=== PATIENT | male | born 1960 | race Caucasian/White ===

== ENCOUNTER 2021-03-04 04:51 | Inpatient (IN) | payer MEDICARE ==
[2021-03-04] MEDS ORDERED: PANTOPRAZOLE 40 MG/10 ML VIAL IVP STA (05:14)
--- NOTE | 2021-03-04 05:15 | ED ---
GI Bleed HPI - General Chief complaint: GI Bleed Stated complaint: GI Bleed Time Seen by Provider: 03/04/21 05:13 Source: patient, family Mode of arrival: EMS Limitations: no limitations - History of Present Illness Initial comments: This patient is 60-year-old man brought by and also had an evaluation after syncopal episode. The patient had gotten up from bed to a bowel movement at around 4 AM. The patient states that the next thing that he knew he had passed out and fall from the commode. He had apparently passed a dark tarry stool. The patient was feeling a little lightheaded prior. Patient denied any chest pain, dyspnea, abdominal pain, perianal pain or bright red blood. Patient does have chronic back pain and states that this was probably worsened after he fell from the commode. No weakness or numbness of the extremities. No saddle anesthesia. He has not noticed any change in bladder or bowel function. Patient had similar episode with dark bloody stools in June of last year and was seen in [place] at the hospital, where he had endoscopy that showed some sort of ulceration. He states that he was told that he didn't need to have any follow-up after that. MD complaint: melena Severity scale (1-10): 0 Quality: painless Improves with: none Worsens with: none Context: history of GI bleed Associated Symptoms: denies other symptoms, syncope - Related Data Home Medications Medication Instructions Recorded Confirmed Atorvastatin [Lipitor] 40 mg PO HS 03/04/21 03/04/21 Disulfiram [Antabuse] 250 mg PO DAILY 03/04/21 03/04/21 Levocetirizine Dihydrochloride 5 mg PO DAILY 03/04/21 03/04/21 Methadone [Dolophine] 10 mg PO Q4H PRN 03/04/21 03/04/21 PARoxetine [Paxil] 20 mg PO DAILY 03/04/21 03/04/21 oxyCODONE-APAP 10-325MG [Percocet 1 tab PO Q8HR PRN 03/04/21 03/04/21 10-325 mg] tiZANidine [Zanaflex] 4 mg PO BID 03/04/21 03/04/21 Allergies Allergy/AdvReac Type Severity Reaction Status Date / Time No Known Allergies Allergy Verified 04/30/21 08:06 Review of Systems ROS Statement: Those systems with pertinent positive or pertinent negative responses have been documented in the HPI. ROS Other: All systems not noted in ROS Statement are negative. Constitutional: Denies: fever, chills Respiratory: Denies: cough, dyspnea Cardiovascular: Reports: syncope. Denies: chest pain, palpitations, orthopnea, edema Gastrointestinal: Reports: melena. Denies: abdominal pain, vomiting, diarrhea, hematemesis, hematochezia Genitourinary: Denies: dysuria, hematuria Musculoskeletal: Denies: back pain Skin: Denies: rash Neurological: Denies: headache, weakness Hematological/Lymphatic: Denies: easy bleeding Past Medical History Past Medical History: GI Bleed, Hyperlipidemia History of Any Multi-Drug Resistant Organisms: None Reported Past Surgical History: Hernia Repair, Orthopedic Surgery, Tonsillectomy Additional Past Surgical History / Comment(s): Proste surgery Past Psychological History: No Psychological Hx Reported Smoking Status: Current every day smoker Past Alcohol Use History: None Reported Past Drug Use History: None Reported General Exam Limitations: no limitations General appearance: alert, in no apparent distress Head exam: Present: atraumatic, normocephalic Eye exam: Present: normal appearance ENT exam: Present: other (Pallor) Neck exam: Present: normal inspection, full ROM. Absent: tenderness Respiratory exam: Present: normal lung sounds bilaterally. Absent: respiratory distress, wheezes, rales, rhonchi, stridor Cardiovascular Exam: Present: regular rate, normal rhythm, normal heart sounds. Absent: systolic murmur, diastolic murmur, rubs, gallop GI/Abdominal exam: Present: soft. Absent: distended, tenderness, guarding, rebound, rigid, mass Extremities exam: Present: normal inspection, normal capillary refill. Absent: pedal edema, calf tenderness Back exam: Present: normal inspection Neurological exam: Present: alert Skin exam: Present: warm, dry, intact, pallor. Absent: rash Course Vital Signs 03/04/21 03/04/21 03/04/21 04:54 05:04 05:39 Temperature 97.5 F L Pulse Rate 86 85 Respiratory 16 16 Rate Blood Pressure 112/94 92/61 99/53 O2 Sat by Pulse 97 98 Oximetry 03/04/21 03/04/21 03/04/21 06:00 06:30 07:24 Temperature 97.7 F Pulse Rate 100 87 92 Respiratory 15 17 18 Rate Blood Pressure 86/58 106/58 102/58 O2 Sat by Pulse 98 98 98 Oximetry 03/04/21 03/04/21 03/04/21 07:35 07:45 08:15 Temperature 98 F 97.9 F 98 F Pulse Rate 97 96 98 Respiratory 18 16 18 Rate Blood Pressure 86/61 98/64 105/65 O2 Sat by Pulse 99 99 98 Oximetry 03/04/21 09:17 Temperature Pulse Rate Respiratory 18 Rate Blood Pressure 93/61 O2 Sat by Pulse 96 Oximetry Medical Decision Making - Lab Data Result diagrams: 03/08/21 06:44 03/08/21 06:44 Lab Results 03/04/21 03/04/21 03/04/21 Range/Units 05:10 05:10 05:15 WBC 14.9 H (3.8-10.6) k/uL RBC 2.16 L (4.30-5.90) m/uL Hgb 7.6 L (13.0-17.5) gm/dL Hct 22.6 L (39.0-53.0) % MCV 104.7 H (80.0-100.0) fL MCH 35.2 H (25.0-35.0) pg MCHC 33.6 (31.0-37.0) g/dL RDW 14.0 (11.5-15.5) % Plt Count 205 (150-450) k/uL MPV 7.8 Neutrophils % 73 % Lymphocytes % 22 % Monocytes % 3 % Eosinophils % 1 % Basophils % 0 % Neutrophils # 10.9 H (1.3-7.7) k/uL Lymphocytes # 3.3 (1.0-4.8) k/uL Monocytes # 0.5 (0-1.0) k/uL Eosinophils # 0.1 (0-0.7) k/uL Basophils # 0.0 (0-0.2) k/uL Anisocytosis Macrocytosis Moderate PT (9.0-12.0) sec INR (<1.2) APTT (22.0-30.0) sec Sodium (137-145) mmol/L Potassium (3.5-5.1) mmol/L Chloride (98-107) mmol/L Carbon Dioxide (22-30) mmol/L Anion Gap mmol/L BUN (9-20) mg/dL Creatinine (0.66-1.25) mg/dL Est GFR (CKD-EPI)AfAm (>60 ml/min/1.73 sqM) Est GFR (CKD-EPI)NonAf (>60 ml/min/1.73 sqM) Glucose (74-99) mg/dL POC Glucose (mg/dL) (75-99) mg/dL POC Glu Cardiac Cath Technologist ID Lactic Ac Sepsis Rflx Plasma Lactic Acid Semaj (0.7-2.0) mmol/L Calcium (8.4-10.2) mg/dL Total Bilirubin (0.2-1.3) mg/dL AST (17-59) U/L ALT (4-49) U/L Alkaline Phosphatase (38-126) U/L Troponin I (0.000-0.034) ng/mL Total Protein (6.3-8.2) g/dL Albumin (3.5-5.0) g/dL Influenza Type A (PCR) (Not Detectd) Influenza Type B (PCR) (Not Detectd) RSV (PCR) (Not Detectd) SARS-CoV-2 (PCR) (Not Detectd) Blood Type B Positive Blood Type Confirm B Positive Blood Type Recheck No Previous Record Bld Type Recheck Status CABO Indicated Antibody Screen NEGATIVE Crossmatch See Detail Spec Expiration Date 03/07/2021 - 230903/04/21 03/04/21 03/04/21 Range/Units 05:15 05:15 05:15 WBC (3.8-10.6) k/uL RBC (4.30-5.90) m/uL Hgb (13.0-17.5) gm/dL Hct (39.0-53.0) % MCV (80.0-100.0) fL MCH (25.0-35.0) pg MCHC (31.0-37.0) g/dL RDW (11.5-15.5) % Plt Count (150-450) k/uL MPV Neutrophils % % Lymphocytes % % Monocytes % % Eosinophils % % Basophils % % Neutrophils # (1.3-7.7) k/uL Lymphocytes # (1.0-4.8) k/uL Monocytes # (0-1.0) k/uL Eosinophils # (0-0.7) k/uL Basophils # (0-0.2) k/uL Anisocytosis Macrocytosis PT 10.1 (9.0-12.0) sec INR 0.9 (<1.2) APTT 17.9 L (22.0-30.0) sec Sodium 140 (137-145) mmol/L Potassium 3.7 (3.5-5.1) mmol/L Chloride 115 H (98-107) mmol/L Carbon Dioxide 17 L (22-30) mmol/L Anion Gap 8 mmol/L BUN 59 H (9-20) mg/dL Creatinine 0.87 (0.66-1.25) mg/dL Est GFR (CKD-EPI)AfAm >90 (>60 ml/min/1.73 sqM) Est GFR (CKD-EPI)NonAf >90 (>60 ml/min/1.73 sqM) Glucose 162 H (74-99) mg/dL POC Glucose (mg/dL) (75-99) mg/dL POC Glu Cardiac Cath Technologist ID Lactic Ac Sepsis Rflx Plasma Lactic Acid Semaj (0.7-2.0) mmol/L Calcium 7.9 L (8.4-10.2) mg/dL Total Bilirubin 0.2 (0.2-1.3) mg/dL AST 22 (17-59) U/L ALT 17 (4-49) U/L Alkaline Phosphatase 33 L (38-126) U/L Troponin I <0.012 (0.000-0.034) ng/mL Total Protein 4.3 L (6.3-8.2) g/dL Albumin 2.4 L (3.5-5.0) g/dL Influenza Type A (PCR) (Not Detectd) Influenza Type B (PCR) (Not Detectd) RSV (PCR) (Not Detectd) SARS-CoV-2 (PCR) (Not Detectd) Blood Type Blood Type Confirm Blood Type Recheck Bld Type Recheck Status Antibody Screen Crossmatch Spec Expiration Date 03/04/21 03/04/21 03/04/21 Range/Units 05:30 06:07 08:11 WBC (3.8-10.6) k/uL RBC (4.30-5.90) m/uL Hgb (13.0-17.5) gm/dL Hct (39.0-53.0) % MCV (80.0-100.0) fL MCH (25.0-35.0) pg MCHC (31.0-37.0) g/dL RDW (11.5-15.5) % Plt Count (150-450) k/uL MPV Neutrophils % % Lymphocytes % % Monocytes % % Eosinophils % % Basophils % % Neutrophils # (1.3-7.7) k/uL Lymphocytes # (1.0-4.8) k/uL Monocytes # (0-1.0) k/uL Eosinophils # (0-0.7) k/uL Basophils # (0-0.2) k/uL Anisocytosis Macrocytosis PT (9.0-12.0) sec INR (<1.2) APTT (22.0-30.0) sec Sodium (137-145) mmol/L Potassium (3.5-5.1) mmol/L Chloride (98-107) mmol/L Carbon Dioxide (22-30) mmol/L Anion Gap mmol/L BUN (9-20) mg/dL Creatinine (0.66-1.25) mg/dL Est GFR (CKD-EPI)AfAm (>60 ml/min/1.73 sqM) Est GFR (CKD-EPI)NonAf (>60 ml/min/1.73 sqM) Glucose (74-99) mg/dL POC Glucose (mg/dL) (75-99) mg/dL POC Glu Cardiac Cath Technologist ID Lactic Ac Sepsis Rflx Y Plasma Lactic Acid Semaj 3.0 H* (0.7-2.0) mmol/L Calcium (8.4-10.2) mg/dL Total Bilirubin (0.2-1.3) mg/dL AST (17-59) U/L ALT (4-49) U/L Alkaline Phosphatase (38-126) U/L Troponin I (0.000-0.034) ng/mL Total Protein (6.3-8.2) g/dL Albumin (3.5-5.0) g/dL Influenza Type A (PCR) Not Detected (Not Detectd) Influenza Type B (PCR) Not Detected (Not Detectd) RSV (PCR) Not Detected (Not Detectd) SARS-CoV-2 (PCR) Not Detected (Not Detectd) Blood Type Blood Type Confirm Blood Type Recheck Bld Type Recheck Status Antibody Screen Crossmatch Spec Expiration Date 03/04/21 03/04/21 03/04/21 Range/Units 11:45 11:54 21:07 WBC 12.5 H (3.8-10.6) k/uL RBC 2.25 L (4.30-5.90) m/uL Hgb 7.3 L (13.0-17.5) gm/dL Hct 22.5 L (39.0-53.0) % MCV 100.3 H (80.0-100.0) fL MCH 32.5 (25.0-35.0) pg MCHC 32.4 (31.0-37.0) g/dL RDW 17.9 H (11.5-15.5) % Plt Count 153 (150-450) k/uL MPV 7.5 Neutrophils % 82 % Lymphocytes % 15 % Monocytes % 2 % Eosinophils % 0 % Basophils % 0 % Neutrophils # 10.2 H (1.3-7.7) k/uL Lymphocytes # 1.9 (1.0-4.8) k/uL Monocytes # 0.3 (0-1.0) k/uL Eosinophils # 0.0 (0-0.7) k/uL Basophils # 0.0 (0-0.2) k/uL Anisocytosis Slight Macrocytosis Slight PT (9.0-12.0) sec INR (<1.2) APTT (22.0-30.0) sec Sodium (137-145) mmol/L Potassium (3.5-5.1) mmol/L Chloride (98-107) mmol/L Carbon Dioxide (22-30) mmol/L Anion Gap mmol/L BUN (9-20) mg/dL Creatinine (0.66-1.25) mg/dL Est GFR (CKD-EPI)AfAm (>60 ml/min/1.73 sqM) Est GFR (CKD-EPI)NonAf (>60 ml/min/1.73 sqM) Glucose (74-99) mg/dL POC Glucose (mg/dL) 176 H (75-99) mg/dL POC Glu Cardiac Cath Technologist ID Johnny Bishop Lactic Ac Sepsis Rflx Plasma Lactic Acid Semaj 0.8 (0.7-2.0) mmol/L Calcium (8.4-10.2) mg/dL Total Bilirubin (0.2-1.3) mg/dL AST (17-59) U/L ALT (4-49) U/L Alkaline Phosphatase (38-126) U/L Troponin I (0.000-0.034) ng/mL Total Protein (6.3-8.2) g/dL Albumin (3.5-5.0) g/dL Influenza Type A (PCR) (Not Detectd) Influenza Type B (PCR) (Not Detectd) RSV (PCR) (Not Detectd) SARS-CoV-2 (PCR) (Not Detectd) Blood Type Blood Type Confirm Blood Type Recheck Bld Type Recheck Status Antibody Screen Crossmatch Spec Expiration Date 03/04/21 03/05/21 Range/Units 21:12 00:03 WBC 12.3 H (3.8-10.6) k/uL RBC 1.59 L (4.30-5.90) m/uL Hgb 5.1 L* D (13.0-17.5) gm/dL Hct 15.9 L* (39.0-53.0) % MCV 99.9 (80.0-100.0) fL MCH 32.3 (25.0-35.0) pg MCHC 32.3 (31.0-37.0) g/dL RDW 18.4 H (11.5-15.5) % Plt Count 146 L (150-450) k/uL MPV 7.6 Neutrophils % 65 % Lymphocytes % 29 % Monocytes % 4 % Eosinophils % 0 % Basophils % 0 % Neutrophils # 8.0 H (1.3-7.7) k/uL Lymphocytes # 3.6 (1.0-4.8) k/uL Monocytes # 0.4 (0-1.0) k/uL Eosinophils # 0.0 (0-0.7) k/uL Basophils # 0.0 (0-0.2) k/uL Anisocytosis Slight Macrocytosis Slight PT (9.0-12.0) sec INR (<1.2) APTT (22.0-30.0) sec Sodium (137-145) mmol/L Potassium (3.5-5.1) mmol/L Chloride (98-107) mmol/L Carbon Dioxide (22-30) mmol/L Anion Gap mmol/L BUN (9-20) mg/dL Creatinine (0.66-1.25) mg/dL Est GFR (CKD-EPI)AfAm (>60 ml/min/1.73 sqM) Est GFR (CKD-EPI)NonAf (>60 ml/min/1.73 sqM) Glucose (74-99) mg/dL POC Glucose (mg/dL) 138 H (75-99) mg/dL POC Glu Cardiac Cath Technologist SURI Sanket Solomon Lactic Ac Sepsis Rflx Plasma Lactic Acid Semaj (0.7-2.0) mmol/L Calcium (8.4-10.2) mg/dL Total Bilirubin (0.2-1.3) mg/dL AST (17-59) U/L ALT (4-49) U/L Alkaline Phosphatase (38-126) U/L Troponin I (0.000-0.034) ng/mL Total Protein (6.3-8.2) g/dL Albumin (3.5-5.0) g/dL Influenza Type A (PCR) (Not Detectd) Influenza Type B (PCR) (Not Detectd) RSV (PCR) (Not Detectd) SARS-CoV-2 (PCR) (Not Detectd) Blood Type Blood Type Confirm Blood Type Recheck Bld Type Recheck Status Antibody Screen Crossmatch Spec Expiration Date - EKG Data -: EKG Interpreted by Wi EKG shows normal: sinus rhythm, axis (Normal), intervals (Normal), QRS complexes (Normal), ST-T waves (Normal) Rate: normal (Rate 86 bpm) Interpretation: normal EKG Disposition Clinical Impression: GI bleed, Syncope and collapse Disposition: ADMITTED IP TO THIS HOSP Condition: Serious Is patient prescribed a controlled substance at d/c from ED?: No
[2021-03-04] MEDS ORDERED: fentaNYL (PF) 50 MCG/ML 2 ML AMP IVP STA ×2 (05:21→06:42)
[2021-03-04 05:32] LABS: Basophils % (A) 0 %; Eosinophils # (A) 0.1 k/uL (0-0.7); Eosinophils % (A) 1 %; HCT 22.6 % (39.0-53.0); HGB 7.6 gm/dL (13.0-17.5); Lymphocytes # (A) 3.3 k/uL (1.0-4.8); Lymphocytes % (A) 22 %; MCH 35.2 pg (25.0-35.0); MCHC 33.6 g/dL (31.0-37.0); MCV 104.7 fL (80.0-100.0); Macrocytosis Moderate; Mean Platelet Volume 7.8; Monocytes # (A) 0.5 k/uL (0-1.0); Monocytes % (A) 3 %; Neutrophils # (A) 10.9 k/uL (1.3-7.7); Neutrophils % (A) 73 %; Platelet Count 205 k/uL (150-450); RBC 2.16 m/uL (4.30-5.90); WBC 14.9 k/uL (3.8-10.6)
[2021-03-04 05:44] LABS: ALT 17 U/L (4-49); AST 22 U/L (17-59); African American GFR (CKD) >90 (>60 ml/min/1.73 sqM); Albumin 2.4 g/dL (3.5-5.0); Alkaline Phosphatase 33 U/L (38-126); Anion Gap 8 mmol/L; Blood Urea Nitrogen 59 mg/dL (9-20); Calcium 7.9 mg/dL (8.4-10.2); Carbon Dioxide 17 mmol/L (22-30); Chloride 115 mmol/L (98-107); Glucose 162 mg/dL (74-99); Non-African American GFR(CKD) >90 (>60 ml/min/1.73 sqM); Potassium 3.7 mmol/L (3.5-5.1); Sodium 140 mmol/L (137-145); Total Bilirubin 0.2 mg/dL (0.2-1.3); Total Protein 4.3 g/dL (6.3-8.2)
[2021-03-04 06:28] LABS: INR 0.9 (<1.2); Prothrombin Time 10.1 sec (9.0-12.0)
[2021-03-04 06:34] LABS: Partial Thromboplastin Time 17.9 sec (22.0-30.0)
[2021-03-04] MEDS ORDERED: NALOXONE 0.4 MG/ML 1 ML VIAL IV PRN (06:55)
[2021-03-04] MEDS ORDERED: ONDANSETRON 4 MG/2 ML VIAL IVP PRN (06:55)
--- NOTE | 2021-03-04 07:06 | XR ---
EXAM: XR Chest, 1 View CLINICAL HISTORY: ITS.REASON XR Reason: pain TECHNIQUE: Frontal view of the chest. COMPARISON: No relevant prior studies available. FINDINGS: Lungs: Unremarkable. No consolidation. Pleural space: Unremarkable. No pneumothorax. Heart: Unremarkable. No cardiomegaly. Mediastinum: Unremarkable. Bones/joints: Unremarkable. Right side reverse total shoulder arthroplasty hardware in place. IMPRESSION: No acute pulmonary process.
[2021-03-04] MEDS: HYDROmorphone 0.5 MG/0.5 ML SYRINGE IVP PRN ×5 (07:45→20:31)
--- NOTE | 2021-03-04 07:47 | CT ---
EXAMINATION TYPE: CT abdomen pelvis w con DATE OF EXAM: 03/04/2021 COMPARISON: None HISTORY: GI Bleed, Abd pain CT DLP: 1097.8 mGycm CONTRAST: CT scan of the abdomen and pelvis is performed without Oral Contrast and with IV Contrast, patient in jected with 100 mL of Isovue 300. FINDINGS: LUNG BASES-: No visible nodule. No infiltrate. LIVER/GB: No calcified gallstones. No space occupying hepatic lesion. Biliary tree is of normal ca liber. PANCREAS: No inflammation. No distinct mass. SPLEEN: No splenic enlargement. No lesion seen. ADRENALS: No nodule. No thickening. KIDNEYS/BLADDER: No hydronephrosis. No nephrolithiasis. 3.8 cm right renal cyst posteriorly. Urinar y bladder grossly unremarkable. BOWEL: Normal appendix. Normal bowel caliber. No inflammation. GENITAL ORGANS: No gross abnormality. LYMPH NODES: No greater than 1cm abdominal or pelvic lymph nodes are appreciated. AORTA: No significant abnormality. OSSEOUS STRUCTURES: Postoperative changes lumbar spine. OTHER: Left-sided hydrocele noted. IMPRESSION: 1. No acute process identified to account for the patient's symptoms.
[2021-03-04] MEDS ORDERED: PANTOPRAZOLE 40 MG/10 ML VIAL IV SCH (09:00)
[2021-03-04] MEDS: PANTOPRAZOLE 40 MG/10 ML VIAL IV SCH ×2 (09:32→20:30)
--- NOTE | 2021-03-04 09:35 | P.HPIM ---
History of Present Illness H&P Date: 03/04/21 Chief Complaint: Syncope This is a 60-year-old male with past medical history noted below the presented to the emergency room with an episode of syncope and black tarry stool. Patient said that last night he was feeling tired and decided to sleep in the recliner in his sitting room. Around 3 AM he got up to use the bathroom and he does not recall what happened. His at bedside told me that she heard a loud noise and went down to check on him and patient was passed out on the floor. She was able to wake him up and had him sit up on the floor but he became dizzy again and laid back down. She then called 911 to bring him to the emergency room. Upon arrival to the emergency room, patient was awake and alert. He was hemodynamically stable. Hemoglobin was noted to be 7.6. Patient was taken to x-ray and became significantly dizzy when he sat up for the test. Patient said that last night he had an episode of black stool that he denies any abdominal pain. He denies any alcohol use. no NSAIDs use. Patient had a similar episode of GI bleed in June where he was hospitalized in [place] in the [facility] and underwent an EGD showing an underlying ulcer according to his report. Patient said that he does not take Protonix at home. One unit of blood transfusion was ordered and patient will be admitted to the hospital for further management and GI consultation. Review of Systems Review of system: 14 points review of systems were obtained and were negative except to what were mentioned in the HPI. Past Medical History Past Medical History: GI Bleed, Hyperlipidemia History of Any Multi-Drug Resistant Organisms: None Reported Past Surgical History: Hernia Repair, Orthopedic Surgery, Tonsillectomy Additional Past Surgical History / Comment(s): Proste surgery Past Psychological History: No Psychological Hx Reported Smoking Status: Current every day smoker Past Alcohol Use History: None Reported Past Drug Use History: None Reported Medications and Allergies Home Medications Medication Instructions Recorded Confirmed Type Atorvastatin [Lipitor] 40 mg PO HS 03/04/21 03/04/21 History Disulfiram [Antabuse] 250 mg PO DAILY 03/04/21 03/04/21 History Levocetirizine Dihydrochloride 5 mg PO DAILY 03/04/21 03/04/21 History Methadone [Dolophine] 10 mg PO Q4H PRN 03/04/21 03/04/21 History PARoxetine [Paxil] 20 mg PO DAILY 03/04/21 03/04/21 History oxyCODONE-APAP 10-325MG [Percocet 1 tab PO Q8HR PRN 03/04/21 03/04/21 History 10-325 mg] tiZANidine [Zanaflex] 4 mg PO BID 03/04/21 03/04/21 History Allergies Allergy/AdvReac Type Severity Reaction Status Date / Time No Known Allergies Allergy Verified 03/04/21 08:06 Physical Exam Vitals: Vital Signs Temp Pulse Resp BP Pulse Ox 03/04/21 09:17 18 93/61 96 03/04/21 08:15 98 F 98 18 105/65 98 03/04/21 07:45 97.9 F 96 16 98/64 99 03/04/21 07:35 98 F 97 18 86/61 99 03/04/21 07:24 97.7 F 92 18 102/58 98 03/04/21 06:30 87 17 106/58 98 03/04/21 06:00 100 15 86/58 98 03/04/21 05:39 85 16 99/53 98 03/04/21 05:04 92/61 03/04/21 04:54 97.5 F L 86 16 112/94 97 Intake and Output 03/03/21 03/04/21 03/04/21 22:59 06:59 14:59 Intake Total 0 Balance 0 Intake: Blood Product 0 Rc As-1 Unit 0 [id number] Other: Weight 87.543 kg General: The patient is awake and alert, in no distress Eye: there is normal conjunctiva bilaterally. Neck: The neck is supple, there is no JVD. Cardiovascular: Normal S1-S2, no S3-S4, no murmurs. Respiratory: Lungs clear to auscultation bilaterally Gastrointestinal: Abdomen is soft, nontender Musculoskeletal: There is no pedal edema. Neurological:. Speech is normal. Skin: Skin is warm and dry Results CBC & Chem 7: 03/04/21 05:15 03/04/21 05:15 Labs: Abnormal Lab Results - Last 24 Hours (Table) 03/04/21 03/04/21 03/04/21 Range/Units 05:10 05:15 05:15 WBC 14.9 H (3.8-10.6) k/uL RBC 2.16 L (4.30-5.90) m/uL Hgb 7.6 L (13.0-17.5) gm/dL Hct 22.6 L (39.0-53.0) % MCV 104.7 H (80.0-100.0) fL MCH 35.2 H (25.0-35.0) pg Neutrophils # 10.9 H (1.3-7.7) k/uL APTT 17.9 L (22.0-30.0) sec Chloride (98-107) mmol/L Carbon Dioxide (22-30) mmol/L BUN (9-20) mg/dL Glucose (74-99) mg/dL Plasma Lactic Acid Semaj (0.7-2.0) mmol/L Calcium (8.4-10.2) mg/dL Alkaline Phosphatase (38-126) U/L Total Protein (6.3-8.2) g/dL Albumin (3.5-5.0) g/dL Crossmatch See Detail 03/04/21 03/04/21 Range/Units 05:15 05:30 WBC (3.8-10.6) k/uL RBC (4.30-5.90) m/uL Hgb (13.0-17.5) gm/dL Hct (39.0-53.0) % MCV (80.0-100.0) fL MCH (25.0-35.0) pg Neutrophils # (1.3-7.7) k/uL APTT (22.0-30.0) sec Chloride 115 H (98-107) mmol/L Carbon Dioxide 17 L (22-30) mmol/L BUN 59 H (9-20) mg/dL Glucose 162 H (74-99) mg/dL Plasma Lactic Acid Semaj 3.0 H* (0.7-2.0) mmol/L Calcium 7.9 L (8.4-10.2) mg/dL Alkaline Phosphatase 33 L (38-126) U/L Total Protein 4.3 L (6.3-8.2) g/dL Albumin 2.4 L (3.5-5.0) g/dL Crossmatch Assessment and Plan Assessment: This is a 60-year-old male with past medical history noted below that presented to the emergency room with syncope and black stool. Patient was evaluated in the ER and admitted to the hospital for further management of his medical problems noted below 1. Upper GI bleed, started on Protonix 40 mg twice daily. GI consulted for further evaluation. History of gastric ulcer seen on EGD done at [facility] in June 2020 2. Acute blood loss anemia, symptomatic. Hemoglobin 7.6 on presentation. One unit of blood transfusion ordered in the ER. Continue to monitor CBC every 6 hours. 3. Chronic low back pain with prior back surgery, now worse after syncope and possible fall on the floor. I would obtain lumbar spine x-ray for further evaluation 4. Underlying depression, continue home medication 5. CODE STATUS: Patient is full code Today, I reviewed his medication list and lab work results. Continue gentle IV fluid hydration. Nothing by mouth awaiting GI evaluation. Continue to monitor CBC every 6 hours. Repeat lab work in the morning. DVT prophylaxis with SCDs.
--- NOTE | 2021-03-04 10:05 | XR ---
EXAMINATION TYPE: XR lumbar spine 2 or 3V DATE OF EXAM: 03/04/2021 CLINICAL HISTORY: pain TECHNIQUE: Three views of the lumbar spine are submitted. COMPARISON: 04/26/15 FINDINGS: There are postsurgical changes with posterior intrapedicular rods and screws transfixing L3-S1 levels bilaterally. There has been spinous process resection at these levels. There is metallic disc spacer at L5-S1 level. Alignment is satisfactory. Vertebral body heights are within normal limits. Disc spaces are within normal limits. The overlyi ng soft tissue appears unremarkable. IMPRESSION: Stable postoperative changes of the lumbar spine
[2021-03-04] MEDS: SODIUM CHLORIDE 0.9% 1,000 ML IV SCH ×2 (11:59→14:02)
[2021-03-04 12:19] LABS: Anisocytosis Slight; Basophils % (A) 0 %; Eosinophils % (A) 0 %; HCT 22.5 % (39.0-53.0); HGB 7.3 gm/dL (13.0-17.5); Lymphocytes # (A) 1.9 k/uL (1.0-4.8); Lymphocytes % (A) 15 %; MCH 32.5 pg (25.0-35.0); MCHC 32.4 g/dL (31.0-37.0); MCV 100.3 fL (80.0-100.0); Macrocytosis Slight; Mean Platelet Volume 7.5; Monocytes # (A) 0.3 k/uL (0-1.0); Monocytes % (A) 2 %; Neutrophils # (A) 10.2 k/uL (1.3-7.7); Neutrophils % (A) 82 %; Platelet Count 153 k/uL (150-450); RBC 2.25 m/uL (4.30-5.90); RDW 17.9 % (11.5-15.5); WBC 12.5 k/uL (3.8-10.6)
[2021-03-04] MEDS: PARoxetine 20 MG TAB PO SCH (13:10)
[2021-03-04] MEDS: oxyCODONE-APAP 10-325MG 1 EACH TAB PO PRN (13:10)
--- NOTE | 2021-03-04 15:24 | P.CONS ---
History of Present Illness - Reason for Consult Consult date: 03/04/21 Upper GI bleed - Chief Complaint Syncopal episode with fall, black tarry stools - History of Present Illness Is a pleasant 60-year-old white male who presented to the emergency department this morning after sustaining a fall when he became dizzy to get up to the bathroom approximately at 4 AM. He states he has noticed yesterday he did have a dark stool, however prior to that has no complaints of any previous black or tarry stools, hematemesis, coffee-ground emesis or bright red blood per rectum. Patient states he had a similar episode back in June 2020 where he was in the [facility] same thing happened he became dizzy he fell he fractured his neck and broken with his teeth, he was found to be anemic with part of his workup being an upper endoscopy which she states revealed a peptic ulcer. The patient states he was on some medications for it for short time, however he had no further follow-up. He does not take any antacids or proton pump inhibitors and a regular basis. He does not use any NSAIDs, as he was prior on low back prior to the last diagnosis of peptic ulcer disease and was told to use any NSAIDs. He has a previous history of alcohol use, which he states was never a real heavy. He is unsure of when his last colonoscopy was he believes that was within the last 5-10 years. He is unsure if they actually did one during his hospitalization and narcotic in June 2020. Apparently in the emergency department he had a repeated large black tarry stool. Admission WBC 14.9, hemoglobin 7.6, hematocrit 22.6, platelets 205,000 BUN 59. He is status post 1 unit of PRBC transfusion. Review of Systems REVIEW OF SYSTEMS: CARDIOPULMONARY: No chest pain or shortness of breath. Gastrointestinal: Epigastric pain, denies nausea or vomiting, reports dark stools. Denies any hematemesis or rectal bleeding. GENITOURINARY: No dysuria or hematuria. MUSCULOSKELETAL: Unremarkable. SKIN: Unremarkable. ENDOCRINE: Unremarkable. PSYCHIATRIC: Unremarkable. NEUROLOGY: Unremarkable. ENT: Vision unremarkable. CONSTITUTIONAL: No recent weight loss. No fever, chills, night sweats. Past Medical History Past Medical History: GI Bleed, Hyperlipidemia History of Any Multi-Drug Resistant Organisms: None Reported Past Surgical History: Hernia Repair, Orthopedic Surgery, Tonsillectomy Additional Past Surgical History / Comment(s): Proste surgery Past Psychological History: No Psychological Hx Reported Smoking Status: Current every day smoker Past Alcohol Use History: None Reported Past Drug Use History: None Reported Medications and Allergies Home Medications Medication Instructions Recorded Confirmed Type Atorvastatin [Lipitor] 40 mg PO HS 03/04/21 03/04/21 History Disulfiram [Antabuse] 250 mg PO DAILY 03/04/21 03/04/21 History Levocetirizine Dihydrochloride 5 mg PO DAILY 03/04/21 03/04/21 History Methadone [Dolophine] 10 mg PO Q4H PRN 03/04/21 03/04/21 History PARoxetine [Paxil] 20 mg PO DAILY 03/04/21 03/04/21 History oxyCODONE-APAP 10-325MG [Percocet 1 tab PO Q8HR PRN 03/04/21 03/04/21 History 10-325 mg] tiZANidine [Zanaflex] 4 mg PO BID 03/04/21 03/04/21 History Allergies Allergy/AdvReac Type Severity Reaction Status Date / Time No Known Allergies Allergy Verified 03/04/21 08:06 Physical Exam Vitals: Vital Signs Temp Pulse Resp BP Pulse Ox 03/04/21 09:17 18 93/61 96 03/04/21 08:15 98 F 98 18 105/65 98 03/04/21 07:45 97.9 F 96 16 98/64 99 03/04/21 07:35 98 F 97 18 86/61 99 03/04/21 07:24 97.7 F 92 18 102/58 98 03/04/21 06:30 87 17 106/58 98 03/04/21 06:00 100 15 86/58 98 03/04/21 05:39 85 16 99/53 98 03/04/21 05:04 92/61 03/04/21 04:54 97.5 F L 86 16 112/94 97 Intake and Output 03/03/21 03/04/21 03/04/21 22:59 06:59 14:59 Intake Total 310 Balance 310 Intake: Blood Product 310 Rc As-1 Unit 310 [id number] Other: Weight 87.543 kg 87.543 kg General appearance: The patient is alert, oriented, appears in no acute distress. HET: Head is normocephalic and atraumatic. Conjunctiva pink. Sclera anicteric. Neck: Supple without lymphadenopathy. Abdomen: Soft, epigastric tenderness, nondistended with bowel sounds. No guarding or rigidity. Extremities: Normal skin color and turgor. No pedal edema Skin: No rashes, no jaundice Neurological: No focal deficits. Alert and oriented 3. Results CBC & Chem 7: 03/04/21 11:54 03/04/21 05:15 Labs: Abnormal Lab Results - Last 24 Hours (Table) 03/04/21 03/04/21 03/04/21 Range/Units 05:10 05:15 05:15 WBC 14.9 H (3.8-10.6) k/uL RBC 2.16 L (4.30-5.90) m/uL Hgb 7.6 L (13.0-17.5) gm/dL Hct 22.6 L (39.0-53.0) % MCV 104.7 H (80.0-100.0) fL MCH 35.2 H (25.0-35.0) pg RDW (11.5-15.5) % Neutrophils # 10.9 H (1.3-7.7) k/uL APTT 17.9 L (22.0-30.0) sec Chloride (98-107) mmol/L Carbon Dioxide (22-30) mmol/L BUN (9-20) mg/dL Glucose (74-99) mg/dL Plasma Lactic Acid Semaj (0.7-2.0) mmol/L Calcium (8.4-10.2) mg/dL Alkaline Phosphatase (38-126) U/L Total Protein (6.3-8.2) g/dL Albumin (3.5-5.0) g/dL Crossmatch See Detail 03/04/21 03/04/21 03/04/21 Range/Units 05:15 05:30 11:54 WBC 12.5 H (3.8-10.6) k/uL RBC 2.25 L (4.30-5.90) m/uL Hgb 7.3 L (13.0-17.5) gm/dL Hct 22.5 L (39.0-53.0) % MCV 100.3 H (80.0-100.0) fL MCH (25.0-35.0) pg RDW 17.9 H (11.5-15.5) % Neutrophils # 10.2 H (1.3-7.7) k/uL APTT (22.0-30.0) sec Chloride 115 H (98-107) mmol/L Carbon Dioxide 17 L (22-30) mmol/L BUN 59 H (9-20) mg/dL Glucose 162 H (74-99) mg/dL Plasma Lactic Acid Semaj 3.0 H* (0.7-2.0) mmol/L Calcium 7.9 L (8.4-10.2) mg/dL Alkaline Phosphatase 33 L (38-126) U/L Total Protein 4.3 L (6.3-8.2) g/dL Albumin 2.4 L (3.5-5.0) g/dL Crossmatch Assessment and Plan (1) GI bleed Narrative/Plan: Assessment pleasant 60-year-old male who presented to the emergency department after feeling dizzy and he got up to go to the bathroom and subsequently passed out and fell. He states he had a dark stool the day before and was not feeling well, states he was just feeling "off". He states he has a history in June 2020 where he had a similar episode and he fell which at that time states he fractured his back and neck as well as lost his front teeth, he was found to be anemic at that time and underwent an upper endoscopy while she was in the [facility]. He states he was told he had an ulcer. He has not had any follow-up since then. He also states he is not on any NSAIDs, anticoagulation, and not on any proton pump inhibitors. He was noted to have a hemoglobin is 7.6 on admission and given 1 unit of PRBC transfusion. He also had another black tarry stool while he was in the emergency room. Likely dealing with peptic ulcer disease, however have to consider AVM, gastritis or esophagitis. Also need to consider lower GI bleed as a possibility. Current Visit: Yes Status: Acute Code(s): K92.2 - GASTROINTESTINAL HEMORRHAGE, UNSPECIFIED SNOMED Code(s): 88001689 (2) Syncope and collapse Current Visit: Yes Status: Acute Code(s): R55 - SYNCOPE AND COLLAPSE SNOMED Code(s): 427237261 Plan: 1. Agree with PRBC transfusion 2. Clear liquid diet, nothing by mouth after midnight 3. Repeat CBC in a.m. 4. Plan for EGD tomorrow Thank you for this consultation, we will continue to follow Dr. Brittany Lawler I agree with the dictator's note, documented as a scribe by Radha Barker.
[2021-03-04] MEDS: tiZANidine 4 MG TAB PO SCH (20:30)
[2021-03-04] MEDS: ATORVASTATIN 40 MG TAB PO SCH (20:30)
[2021-03-04 21:09] LABS: Glucose,Whole Blood 176 mg/dL (75-99)
[2021-03-04] MEDS ORDERED: SODIUM CHLORIDE 0.9% 1,000 ML IV ONE (21:10)
--- NOTE | 2021-03-04 21:35 | P.EN ---
A team note for repeated episodes of GI bleeding patient had 2 episodes of dark BM since morning , however he just started having hematamesis , he looks ancious , confused, diaphoretic , heart rate in the 130s , BP systolic 130. oxygen st 100% he denies any chest pain or trouble breathing, but he gets very dizzy and lightheaded when he attempted to sit up in his bed and get cleaned after his dark bowel movement , he does complain epigastric discomfort labs reviewed, he claims to have baseline hemoglobin around 9 , currently at 7.3 (down from initial 7.6 no other baseline hgb) , he received blood transfusion this morning , PT/INR wnl. platelets wnl good breath sounds bilaterally , abd soft , with epigastric discomfort. plan repeat CBC 1 L bolus NS 0.9% will give another unit of blood if hemoglobin <7 (patient claims his baseline is 9) notify GI for any further plans. he is currently scheduled for EGD in AM continue with PPI BID NPO patient to continue to be monitored on the step down unit , as we have no ICU beds at this time continue with tele cbc q 6 hours no antiplatelets no NSAIDS assessment , symptomatic GI bleeding with severe anemia 30 minutes were spent in critical care time in the care of this patient
[2021-03-04 21:49] LABS: Anisocytosis Slight; Basophils % (A) 0 %; Eosinophils % (A) 0 %; Lymphocytes # (A) 3.6 k/uL (1.0-4.8); Lymphocytes % (A) 29 %; MCH 32.3 pg (25.0-35.0); MCHC 32.3 g/dL (31.0-37.0); MCV 99.9 fL (80.0-100.0); Macrocytosis Slight; Mean Platelet Volume 7.6; Monocytes # (A) 0.4 k/uL (0-1.0); Monocytes % (A) 4 %; Neutrophils % (A) 65 %; Platelet Count 146 k/uL (150-450); RBC 1.59 m/uL (4.30-5.90); RDW 18.4 % (11.5-15.5); WBC 12.3 k/uL (3.8-10.6)
[2021-03-04 21:53] LABS: HGB 5.1 gm/dL (13.0-17.5)
[2021-03-04 21:54] LABS: HCT 15.9 % (39.0-53.0)
[2021-03-04] MEDS ORDERED: CALCIUM GLUCONATE 1 GM in SODIUM CHLORIDE 0.9% 100 ML IVPB ONE (23:00)
[2021-03-05 00:05] LABS: Glucose,Whole Blood 138 mg/dL (75-99)
[2021-03-05] MEDS: HYDROmorphone 0.5 MG/0.5 ML SYRINGE IVP PRN ×4 (00:58→20:45)
[2021-03-05] MEDS: SODIUM CHLORIDE 0.9% 1,000 ML IV SCH ×4 (01:13→23:34)
[2021-03-05] MEDS: oxyCODONE-APAP 10-325MG 1 EACH TAB PO PRN (01:14)
[2021-03-05 06:57] LABS: Anisocytosis Slight; Basophils % (A) 0 %; Eosinophils % (A) 0 %; Lymphocytes % (A) 22 %; MCH 31.8 pg (25.0-35.0); MCHC 32.8 g/dL (31.0-37.0); MCV 96.9 fL (80.0-100.0); Macrocytosis Slight; Mean Platelet Volume 7.6; Monocytes # (A) 0.3 k/uL (0-1.0); Monocytes % (A) 4 %; Neutrophils # (A) 6.5 k/uL (1.3-7.7); Neutrophils % (A) 72 %; Platelet Count 106 k/uL (150-450); RBC 1.75 m/uL (4.30-5.90); RDW 16.8 % (11.5-15.5); WBC 9.1 k/uL (3.8-10.6)
[2021-03-05 07:01] LABS: HGB 5.6 gm/dL (13.0-17.5)
[2021-03-05 07:09] LABS: African American GFR (CKD) >90 (>60 ml/min/1.73 sqM); Anion Gap -3 mmol/L; Blood Urea Nitrogen 34 mg/dL (9-20); Calcium 7.3 mg/dL (8.4-10.2); Carbon Dioxide 22 mmol/L (22-30); Chloride 119 mmol/L (98-107); Glucose 111 mg/dL (74-99); Non-African American GFR(CKD) >90 (>60 ml/min/1.73 sqM); Potassium 4.1 mmol/L (3.5-5.1); Sodium 138 mmol/L (137-145)
[2021-03-05] MEDS ORDERED: IV FLUID CONTINUATION 200 ML IV ONE (07:40)
[2021-03-05] MEDS ORDERED: PROPOFOL 10 MG/ML 20 ML VIAL IV ONE (07:40)
[2021-03-05] MEDS ORDERED: fentaNYL (PF) 50 MCG/ML 2 ML AMP ONE (07:40)
[2021-03-05] MEDS ORDERED: LIDOCAINE 1% INJ 10MG/ML (20 ML MDV) ONE (07:40)
[2021-03-05] MEDS ORDERED: MIDAZOLAM 2 MG/2 ML VIAL ONE (07:40)
--- NOTE | 2021-03-05 08:08 | P.PCN ---
Date of Procedure: 03/05/21 Procedure(s) Performed: BRIEF HISTORY: Patient is a 60-year-old, pleasant, male admitted hospital with acute GI bleed and black tarry stools that happened 2 days ago and he came into the emergency room yesterday and was subsequently admitted hospital with a hemoglobin of 7.6 g/dL. Through the night he had large amount of black tarry stools and subsequently became hypotensive and was transferred to the intensive care unit. His repeat hemoglobin of 7.1 and received 2 units of RBC transfusion. Repeat CBC this morning is 5.6 g/dL. He will be receiving 2 additional units of PRBC transfusion. He has another episode in June 2020 requiring 2 units of blood transfusion while he was living up normal. He had an EGD done and according to the patient was diagnosed with duodenal ulcer at that time. Presently he denies any NSAID use. PROCEDURE PERFORMED: Esophagogastroduodenoscopy with injection epinephrine and Endo Clip placement. PREOPERATIVE DIAGNOSIS: Acute upper GI bleed. IV sedation per anesthesia. PROCEDURE: After informed consent was obtained, the patient was brought into the endoscopy unit. IV sedation was administered by Anesthesia under continuous monitoring. Initially the Olympus GIF-140 video endoscope was inserted into the mouth. Esophagus intubated without any difficulty. It was gradually advanced into the stomach and duodenum and carefully examined. The bulb and the second part of the duodenum had significant amount of fresh blood with clots noted. Thorough irrigation was performed. Large clots were noted in the duodenum that we're irrigated and removed. In the duodenal bulb along the duodenal sweep there was a visible vessel suggestive of a Dieulafoy lesion with active bleeding noted. Initially I injected the bleeding vessel withdrawn and thousand epinephrine and total of 8 mL was injected with hemostasis. At this time 2 endoclips were placed on the visible vessel with good hemostasis. The scope at this time was withdrawn to the stomach, adequately insufflated with air, and upon careful examination, mucosa of the antrum, body, cardia and the fundus appeared normal. There was moderate amount of coffee-ground material in the fundus of the stomach that was aspirated. The scope was then withdrawn into the esophagus. The GE junction was located at 39 cm from the incisors. The esophagus appeared normal. There were no erosions or ulcerations seen and the patient tolerated the procedure well. IMPRESSION: 1. Visible vessel with active bleeding noted in the duodenal bulb suggestive of a Dieulafoy lesion , status post injection epinephrine and Endo Clip placement as described above with good hemostasis . 2. Small hiatal hernia RECOMMENDATIONS: The findings of this examination were discussed with the patient as well as his family. At this time will give him 2 units of blood. Continue with IV Protonix 40 mg every 12 hours. Monitor CBC every 6 hours. Start him on a clear liquid diet..
[2021-03-05] MEDS: PANTOPRAZOLE 40 MG/10 ML VIAL IV SCH ×2 (10:20→20:45)
[2021-03-05] MEDS: PARoxetine 20 MG TAB PO SCH (10:21)
[2021-03-05] MEDS: tiZANidine 4 MG TAB PO SCH ×2 (11:01→20:53)
--- NOTE | 2021-03-05 11:15 | P.CNPUL ---
History of Present Illness Consult date: 03/05/21 Requesting physician: Curt Fletcher Reason for consult: other (Critical care management) Chief complaint: Weakness, syncope History of present illness: This a very pleasant 60-year-old gentleman who follows with Dr. Rodriguez as his primary care provider. He has a history of previous GI bleed, hyperlipidemia, chronic tobacco dependence, previous alcohol abuse. He was brought in the emergency room yesterday after waking up approximate 4 AM to go to the bathroom. He had a black tarry stool and subsequent syncopal episode. Presently hemoglobin 7.3. He received 2 units of packed red blood cells in the emergency room and subsequently transferred to the stepdown unit. Last evening around 9:00 he developed a matter emesis with tachycardia, anxious and diaphoretic. Hemoglobin 5.1. He was given 2 more additional units of packed red blood cells. A liter of fluid resuscitation and transferred to the intensive care unit. Currently receiving his fifth unit of packed red blood cells. Morning hemoglobin 5.6. He did undergo EGD today and was found to have a visible bleeding duodenal ulcer that was treated with epinephrine injection and Endo Clip. He is seen in consultation in the intensive care unit. He is currently resting comfortably in bed. Awake and alert in no acute distress. Maintaining O2 saturations in the 90s on 2 L/m per nasal cannula. 0.9 normal saline at 125 ML's per hour. Chest x-ray had revealed no acute pulmonary process. Computed tomography scan of the abdomen and pelvis revealed no acute processes. White count 9.1. Hemoglobin 5.6. Platelets 106. Sodium 138. Potassium 4.1. Creatinine 0.57. Review of Systems REVIEW OF SYSTEMS: CONSTITUTIONAL: Generalized weakness, syncope. Denies any recent significant weight loss or weight gain. EYES: Denies change in vision. EARS, NOSE, MOUTH, THROAT: Denies headaches, denies sore throat. CARDIOVASCULAR: Denies chest pain, palpitations. RESPIRATORY: Denies shortness of breath, cough, congestion or hemoptysis. GASTROINTESTINAL: Black tarry stools GENITOURINARY: Denies hematuria, denies infections. MUSKULOSKELETAL: Denies pain, denies swelling. INTEGUMENTARY: Denies rash, denies eczema. NEUROLOGICAL: Denies recent memory loss, no recent seizure activity. PSYCHIATRIC: Denies anxiety, denies depression. HEMATOLOGIC/LYMPHATIC: Denies anemia, denies enlarged lymph nodes. Past Medical History Past Medical History: GI Bleed, Hyperlipidemia History of Any Multi-Drug Resistant Organisms: None Reported Past Surgical History: Hernia Repair, Orthopedic Surgery, Tonsillectomy Additional Past Surgical History / Comment(s): Proste surgery Past Psychological History: No Psychological Hx Reported Smoking Status: Current every day smoker Past Alcohol Use History: None Reported Past Drug Use History: None Reported Medications and Allergies Home Medications Medication Instructions Recorded Confirmed Type Atorvastatin [Lipitor] 40 mg PO HS 03/04/21 03/04/21 History Disulfiram [Antabuse] 250 mg PO DAILY 03/04/21 03/04/21 History Levocetirizine Dihydrochloride 5 mg PO DAILY 03/04/21 03/04/21 History Methadone [Dolophine] 10 mg PO Q4H PRN 03/04/21 03/04/21 History PARoxetine [Paxil] 20 mg PO DAILY 03/04/21 03/04/21 History oxyCODONE-APAP 10-325MG [Percocet 1 tab PO Q8HR PRN 03/04/21 03/04/21 History 10-325 mg] tiZANidine [Zanaflex] 4 mg PO BID 03/04/21 03/04/21 History Allergies Allergy/AdvReac Type Severity Reaction Status Date / Time No Known Allergies Allergy Verified 03/04/21 08:06 Physical Exam Vitals: Vital Signs Temp Pulse Pulse Resp BP BP Pulse Ox 03/05/21 10:30 98.4 F 92 18 127/74 100 03/05/21 10:00 98.0 F 97 18 123/77 100 03/05/21 09:30 98.0 F 92 17 135/75 100 03/05/21 09:06 98.1 F 101 H 18 113/73 100 03/05/21 09:00 98 20 120/67 100 03/05/21 08:36 97.7 F 95 19 120/67 100 03/05/21 08:26 98.0 F 101 H 18 99/58 100 03/05/21 08:00 98.0 F 108 H 18 99/58 99 03/05/21 07:00 106 H 10 L 111/71 97 03/05/21 06:00 93 16 110/76 97 03/05/21 05:00 87 11 L 121/62 98 03/05/21 04:54 98.8 F 98 10 L 115/69 97 03/05/21 04:52 98.8 F 95 13 121/62 97 03/05/21 04:00 98.8 F 84 13 112/67 95 03/05/21 03:00 90 21 111/67 96 03/05/21 02:34 98.4 F 88 19 97/65 97 03/05/21 02:04 98.6 F 90 20 111/67 97 03/05/21 02:00 99 F 88 15 101/68 96 03/05/21 01:54 99 F 90 12 101/68 96 03/05/21 01:00 93 13 115/72 03/05/21 00:30 99 F 88 14 94/79 96 03/05/21 00:05 100 9 L 03/04/21 23:09 98.5 F 96 18 103/65 99 03/04/21 22:39 99.4 F 106 H 18 91/62 98 03/04/21 22:29 103 H 20 81/58 98 03/04/21 22:26 103 H 18 86/59 99 03/04/21 21:00 132 H 20 139/79 03/04/21 20:10 99.4 F 113 H 18 124/77 98 03/04/21 17:00 114 H 03/04/21 16:00 104 H 03/04/21 15:00 98.1 F 101 H 18 110/66 97 Intake and Output 03/04/21 03/05/21 03/05/21 22:59 06:59 14:59 Intake Total 400 1780 910 Output Total 574 400 Balance 400 1206 510 Intake: IV 850 600 Calcium Gluconate 1 gm In 100 Sodium Chloride 0.9% 100 ml @ 100 mls/hr IVPB ONCE ONE Rx#:[id number] Sodium Chloride 0.9% 1, 750 500 000 ml @ 125 mls/hr IV . Q8H KARLA Rx#:[id number] Oral 400 Blood Product 0 930 310 Rc As-1 Unit 0 310 [id number] Rc As-1 Unit 0 [id number] Rc As-1 Unit 310 [id number] Rc As-1 Unit 310 [id number] Output: Urine 574 400 Other: Voiding Method Urinal Urinal Urinal # Voids 1 GENERAL EXAM: Alert, very pleasant 60-year-old gentleman, on 2 L nasal cannula, pale, comfortable in no apparent distress. HEAD: Normocephalic. EYES: Normal reaction of pupils, equal size. NOSE: Clear with pink turbinates. THROAT: No erythema or exudates. NECK: No masses, no JVD. CHEST: No chest wall deformity. LUNGS: Equal air entry with no crackles, wheeze, rhonchi or dullness. CVS: S1 and S2 normal with no audible murmur, regular rhythm. ABDOMEN: No hepatosplenomegaly, normal bowel sounds, no guarding or rigidity. SPINE: No scoliosis or deformity SKIN: No rashes CENTRAL NERVOUS SYSTEM: No focal deficits, tone is normal in all 4 extremities. EXTREMITIES: There is no peripheral edema. No clubbing, no cyanosis. Peripheral pulses are intact. Results - Laboratory Findings CBC and BMP: 03/05/21 06:29 03/05/21 06:29 PT/INR, D-dimer PT 10.1 sec (9.0-12.0) 03/04/21 05:15 INR 0.9 (<1.2) 03/04/21 05:15 Abnormal lab findings: Abnormal Labs 03/04/21 03/04/21 03/04/21 05:10 05:15 05:15 WBC 14.9 H RBC 2.16 L Hgb 7.6 L Hct 22.6 L MCV 104.7 H MCH 35.2 H RDW Plt Count Neutrophils # 10.9 H APTT 17.9 L Chloride Carbon Dioxide BUN Creatinine Glucose POC Glucose (mg/dL) Plasma Lactic Acid Semaj Calcium Alkaline Phosphatase Total Protein Albumin Crossmatch See Detail 03/04/21 03/04/21 03/04/21 05:15 05:30 11:54 WBC 12.5 H RBC 2.25 L Hgb 7.3 L Hct 22.5 L MCV 100.3 H MCH RDW 17.9 H Plt Count Neutrophils # 10.2 H APTT Chloride 115 H Carbon Dioxide 17 L BUN 59 H Creatinine Glucose 162 H POC Glucose (mg/dL) Plasma Lactic Acid Semaj 3.0 H* Calcium 7.9 L Alkaline Phosphatase 33 L Total Protein 4.3 L Albumin 2.4 L Crossmatch 03/04/21 03/04/21 03/05/21 21:07 21:12 00:03 WBC 12.3 H RBC 1.59 L Hgb 5.1 L* D Hct 15.9 L* MCV MCH RDW 18.4 H Plt Count 146 L Neutrophils # 8.0 H APTT Chloride Carbon Dioxide BUN Creatinine Glucose POC Glucose (mg/dL) 176 H 138 H Plasma Lactic Acid Semaj Calcium Alkaline Phosphatase Total Protein Albumin Crossmatch 03/05/21 03/05/21 06:29 06:29 WBC RBC 1.75 L Hgb 5.6 L* Hct 17.0 L* MCV MCH RDW 16.8 H Plt Count 106 L Neutrophils # APTT Chloride 119 H Carbon Dioxide BUN 34 H Creatinine 0.57 L Glucose 111 H POC Glucose (mg/dL) Plasma Lactic Acid Semaj Calcium 7.3 L Alkaline Phosphatase Total Protein Albumin Crossmatch - Diagnostic Findings Chest x-ray: image reviewed (No acute pulmonary process) Assessment and Plan Assessment: 1 Syncope secondary to severe anemia secondary to visible vessel or active bleeding noted of the duodenum bowel suggestive of Dieulafoy lesion, status post injection of epinephrine and Endo Clip placement with good hemostasis per EGD performed today 03/05/2021 2 Severe anemia secondary to above requiring 5 units packed red blood cells so far this admission. Current hemoglobin 5.6. 3 Previous history of alcohol abuse 4 Previous history of GI bleed 5 Chronic and ongoing tobacco dependence 6 Hyperlipidemia Plan: The patient was seen and evaluated by Dr. Talley Status post epinephrine injection and clipping of a duodenal ulcer Receiving his fifth unit of packed red blood cells Continue to monitor hemoglobin Continue 0.9 normal saline at 125 ML's per hour Continue to monitor closely here in the ICU We will continue to follow and make further recommendations based on his clinical status I, the cosigning physician, performed a history & physical examination of the patient. Lungs sounds are clear. Maintaining good O2 saturations in the 90s on 2 L/m per nasal. I discussed the assessment and plan of care with my nurse practitioner, Renata Martinez. I attest to the above consultation as dictated by her. Time with Patient: Greater than 30
[2021-03-05 14:13] LABS: Anisocytosis Slight; HCT 24.7 % (39.0-53.0); MCH 31.4 pg (25.0-35.0); MCHC 34.3 g/dL (31.0-37.0); Mean Platelet Volume 7.8; RDW 16.7 % (11.5-15.5)
[2021-03-05 14:48] LABS: HGB 8.5 gm/dL (13.0-17.5); MCV 91.7 fL (80.0-100.0)
--- NOTE | 2021-03-05 15:09 | P.PN ---
Subjective Progress Note Date: 03/05/21 (delayed charting seen at 1130) Principal diagnosis: syncope, tarry stools Patient is a 60-year-old male with history of prior GI bleed, dyslipidemia, and tobacco abuse who presented to the ER with dark tarry stools and syncopal episode. In the ER he underwent an extensive evaluation. Vital signs stable, hemoglobin 7.6, lactic acid 3, influenza A and COVID testing negative. In the ER he try to get up for x-ray and again became dizzy and had an additional episode of black tarry stool. He was ordered 1 unit of packed red blood cells. He was admitted for further monitoring. GI was consulted and started him on a clear liquid diet and nothing by mouth after midnight. On the floor patient began having hematemesis and became tachycardic and had worsening dizziness. Stat repeat CBC. He also hemoglobin of 5.1. 2 additional units of packed red blood cells were ordered as well as 1 g of calcium gluconate and the patient was transferred to the ICU. His hemoglobin remained low and initial 2 units of packed red blood cells were ordered. He underwent EGD on the morning of 03/05 which demonstrated visible vessel with active bleeding in the duodenal all sugg estive of a Dieulafoy lesion which was injected with epi and had an endoclip placed with good results. CT abd and pelvis: no acute process Chest x-ray: no acute process Lumbar spine: stable postoperative changes Patient seen and examined at bedside. His abdominal pain has resolved. He denies any nausea or vomiting. He denies any chest pain or shortness of breath. He is feeling hungry. We discussed the importance of avoiding NSAID use in the future, no alcohol use. General: ill appearing, no distress, appears at stated age Derm: warm, dry Head: atraumatic, normocephalic, symmetric Eyes: EOMI, no lid lag, anicteric sclera Mouth: no lip lesion, mucus membranes moist Cardiovascular: S1S2 reg, no murmur, positive posterior tibial pulse bilateral, Lungs: Decreased bs bilateral, no rhonchi, no rales , no accessory muscle use Abdominal: soft, nontender to palpation, no guarding, no appreciable organomegaly Ext: no gross muscle atrophy, no edema, no contractures Neuro: CN II-XI grossly intact, no focal neuro deficits Psych: Alert, oriented, appropriate affect Upper GI bleed, acute blood loss anemia, due to Dieulafoy lesion -Status post 5 units of packed red blood cells - repeat this afternoon and then in AM - GI recs - on PPI - GI recs Thrombocytopenia - follow CBC - no indication for transfusion Probable syncope, fall - due to acute blood loss - check orthostatic in AM - Tele Tobacco abuse - cessation - nicotine replacement if needed Acute on Chronic back pain - conitnue zanaflex, percocet, dilaudid Depression - Paxil DVT prophylaxis: SCDs Discussed with: patient, nursing Anticipated discharge: 3-[address]: home A total of 35 minutes was spent on the care of this complex patient more than 50% of the time was spent in counseling and care coordination. Objective - Vital Signs Vital signs: Vital Signs Temp 98.3 F 03/05/21 12:39 Pulse 90 03/05/21 14:00 Resp 16 03/05/21 14:00 BP 133/73 03/05/21 14:00 Pulse Ox 99 03/05/21 14:00 Intake & Output 03/04/21 03/05/21 03/05/21 18:59 06:59 18:59 Intake Total 710 1780 1720 Output Total 574 400 Balance 710 1206 1320 Weight 87.543 kg Intake: IV 850 1100 Calcium Gluconate 1 gm In 100 Sodium Chloride 0.9% 100 ml @ 100 mls/hr IVPB ONCE ONE Rx#:[id number] Sodium Chloride 0.9% 1, 750 1000 000 ml @ 125 mls/hr IV . Q8H [facility] Rx#:[id number] Oral 400 Blood Product 310 930 620 Rc As-1 Unit 310 [id number] Rc As-1 Unit 310 [id number] Rc As-1 Unit 310 [id number] Rc As-1 Unit 310 [id number] Rc As-1 Unit 310 [id number] Output: Urine 574 400 Other: Voiding Method Urinal Urinal # Voids 1 - Labs CBC & Chem 7: 03/05/21 14:04 03/05/21 06:29 Labs: Abnormal Lab Results - Last 24 Hours (Table) 03/04/21 03/04/21 03/04/21 Range/Units 05:10 21:07 21:12 WBC 12.3 H (3.8-10.6) k/uL RBC 1.59 L (4.30-5.90) m/uL Hgb 5.1 L* D (13.0-17.5) gm/dL Hct 15.9 L* (39.0-53.0) % RDW 18.4 H (11.5-15.5) % Plt Count 146 L (150-450) k/uL Neutrophils # 8.0 H (1.3-7.7) k/uL Chloride (98-107) mmol/L BUN (9-20) mg/dL Creatinine (0.66-1.25) mg/dL Glucose (74-99) mg/dL POC Glucose (mg/dL) 176 H (75-99) mg/dL Calcium (8.4-10.2) mg/dL Crossmatch See Detail 03/05/21 03/05/21 03/05/21 Range/Units 00:03 06:29 06:29 WBC (3.8-10.6) k/uL RBC 1.75 L (4.30-5.90) m/uL Hgb 5.6 L* (13.0-17.5) gm/dL Hct 17.0 L* (39.0-53.0) % RDW 16.8 H (11.5-15.5) % Plt Count 106 L (150-450) k/uL Neutrophils # (1.3-7.7) k/uL Chloride 119 H (98-107) mmol/L BUN 34 H (9-20) mg/dL Creatinine 0.57 L (0.66-1.25) mg/dL Glucose 111 H (74-99) mg/dL POC Glucose (mg/dL) 138 H (75-99) mg/dL Calcium 7.3 L (8.4-10.2) mg/dL Crossmatch 03/05/21 Range/Units 14:04 WBC 14.0 H (3.8-10.6) k/uL RBC 2.70 L (4.30-5.90) m/uL Hgb 8.5 L D (13.0-17.5) gm/dL Hct 24.7 L (39.0-53.0) % RDW 16.7 H (11.5-15.5) % Plt Count (150-450) k/uL Neutrophils # (1.3-7.7) k/uL Chloride (98-107) mmol/L BUN (9-20) mg/dL Creatinine (0.66-1.25) mg/dL Glucose (74-99) mg/dL POC Glucose (mg/dL) (75-99) mg/dL Calcium (8.4-10.2) mg/dL Crossmatch
[2021-03-05 15:11] LABS: Platelet Count 93 k/uL (150-450)
[2021-03-05] MEDS: ATORVASTATIN 40 MG TAB PO SCH (20:45)
[2021-03-05 22:38] LABS: Anisocytosis Slight; MCH 31.4 pg (25.0-35.0); MCHC 34.8 g/dL (31.0-37.0); MCV 90.4 fL (80.0-100.0); Mean Platelet Volume 7.8; RBC 2.06 m/uL (4.30-5.90); RDW 17.1 % (11.5-15.5); WBC 11.5 k/uL (3.8-10.6)
[2021-03-05 22:55] LABS: HCT 18.7 % (39.0-53.0); HGB 6.5 gm/dL (13.0-17.5)
[2021-03-05 22:56] LABS: Platelet Count 86 k/uL (150-450)
[2021-03-06] MEDS: HYDROmorphone 0.5 MG/0.5 ML SYRINGE IVP PRN ×7 (00:14→23:47)
[2021-03-06] MEDS: SODIUM CHLORIDE 0.9% 1,000 ML IV SCH ×3 (07:02→23:48)
[2021-03-06] MEDS: oxyCODONE-APAP 10-325MG 1 EACH TAB PO PRN ×2 (07:03→13:42)
[2021-03-06 07:11] LABS: African American GFR (CKD) >90 (>60 ml/min/1.73 sqM); Anion Gap -2 mmol/L; Blood Urea Nitrogen 16 mg/dL (9-20); Calcium 7.4 mg/dL (8.4-10.2); Carbon Dioxide 22 mmol/L (22-30); Chloride 118 mmol/L (98-107); Glucose 101 mg/dL (74-99); Non-African American GFR(CKD) >90 (>60 ml/min/1.73 sqM); Sodium 138 mmol/L (137-145)
[2021-03-06 07:31] LABS: Potassium 3.9 mmol/L (3.5-5.1)
[2021-03-06 07:39] LABS: Anisocytosis Slight; HCT 25.3 % (39.0-53.0); MCH 29.9 pg (25.0-35.0); MCHC 32.8 g/dL (31.0-37.0); MCV 91.3 fL (80.0-100.0); Mean Platelet Volume 7.6; RBC 2.77 m/uL (4.30-5.90); RDW 16.7 % (11.5-15.5); WBC 10.8 k/uL (3.8-10.6)
[2021-03-06 07:42] LABS: HGB 8.3 gm/dL (13.0-17.5)
[2021-03-06 07:43] LABS: Platelet Count 87 k/uL (150-450)
[2021-03-06] MEDS: tiZANidine 4 MG TAB PO SCH ×2 (08:08→19:45)
[2021-03-06] MEDS: PARoxetine 20 MG TAB PO SCH (08:08)
[2021-03-06] MEDS: PANTOPRAZOLE 40 MG/10 ML VIAL IV SCH ×2 (08:08→19:45)
[2021-03-06 09:26] LABS: Prothrombin Time 10.7 sec (9.0-12.0)
[2021-03-06 09:30] LABS: Partial Thromboplastin Time 21.3 sec (22.0-30.0)
--- NOTE | 2021-03-06 10:42 | P.PN ---
Subjective Progress Note Date: 03/06/21 Principal diagnosis: Acute anemia with GI bleed This a very pleasant 60-year-old gentleman who follows with Dr. Rodriguez as his primary care provider. He has a history of previous GI bleed, hyperlipidemia, chronic tobacco dependence, previous alcohol abuse. He was brought in the emergency room yesterday after waking up approximate 4 AM to go to the bathroom. He had a black tarry stool and subsequent syncopal episode. Presently hemoglobin 7.3. He received 2 units of packed red blood cells in the emergency room and subsequently transferred to the stepdown unit. Last evening around 9:00 he developed a matter emesis with tachycardia, anxious and diaphoretic. Hemoglobin 5.1. He was given 2 more additional units of packed red blood cells. A liter of fluid resuscitation and transferred to the intensive care unit. Currently receiving his fifth unit of packed red blood cells. Morning hemoglobin 5.6. He did undergo EGD today and was found to have a visible bleedi ng duodenal ulcer that was treated with epinephrine injection and Endo Clip. He is seen in consultation in the intensive care unit. He is currently resting comfortably in bed. Awake and alert in no acute distress. Maintaining O2 saturations in the 90s on 2 L/m per nasal cannula. 0.9 normal saline at 125 ML's per hour. Chest x-ray had revealed no acute pulmonary process. Computed tomography scan of the abdomen and pelvis revealed no acute processes. White count 9.1. Hemoglobin 5.6. Platelets 106. Sodium 138. Potassium 4.1. Creatinine 0.57. The patient is seen today 03/06/2021 in follow-up in the intensive care unit. He is currently sitting up in bed. Awake and alert in no acute distress. He is maintaining good O2 saturations in the mid 90s on room air. He's been afebrile. Hemodynamically stable. He has required 7 units of packed red blood cells this admission. He had a second drop in hemoglobin to 6.5 last night. Current hemoglobin 8.3. He did undergo EGD yesterday and was noted to have a visible vessel with active bleeding the duodenal bulb suggestive of Dieulafoy lesion, status post epinephrine injection and Endo Clip placement with good hemostasis. Small hiatal hernia. Continued on IV Protonix. Continued clear liquid diet. White count 10.8. Platelets 87,000. INR 1.0. Fibrinogen 137. Sodium 138. Potassium 3.9. Creatinine 0.58. Normal saline at 125 ML's per hour. Objective - Vital Signs Vital signs: Vital Signs Temp 98.1 F 03/06/21 08:00 Pulse 67 03/06/21 10:00 Resp 17 03/06/21 10:00 BP 92/51 03/06/21 10:00 Pulse Ox 96 03/06/21 10:00 Intake & Output 03/05/21 03/06/21 03/06/21 18:59 06:59 18:59 Intake Total 2320 2430 400 Output Total 1000 1025 775 Balance 1320 1405 -375 Weight 97 kg Intake: IV 1600 1500 400 Sodium Chloride 0.9% 1, 1500 1500 400 000 ml @ 125 mls/hr IV . Q8H [facility] Rx#:[id number] Tube Feeding 100 Blood Product 620 930 Rc As-1 Unit 310 [id number] Rc As-1 Unit 310 [id number] Rc As-1 Unit 310 [id number] Rc As-1 Unit 310 [id number] Output: Urine 1000 1025 775 Other: Voiding Method Urinal Urinal Urinal # Voids 1 0 - Exam GENERAL EXAM: Alert, very pleasant 60-year-old gentleman, on room air, comfortable in no apparent distress. HEAD: Normocephalic. EYES: Normal reaction of pupils, equal size. NOSE: Clear with pink turbinates. THROAT: No erythema or exudates. NECK: No masses, no JVD. CHEST: No chest wall deformity. LUNGS: Equal air entry with no crackles, wheeze, rhonchi or dullness. CVS: S1 and S2 normal with no audible murmur, regular rhythm. ABDOMEN: No hepatosplenomegaly, normal bowel sounds, no guarding or rigidity. SPINE: No scoliosis or deformity SKIN: No rashes CENTRAL NERVOUS SYSTEM: No focal deficits, tone is normal in all 4 extremities. EXTREMITIES: There is no peripheral edema. No clubbing, no cyanosis. Peripheral pulses are intact. - Labs CBC & Chem 7: 03/06/21 06:49 03/06/21 06:49 Labs: Abnormal Lab Results - Last 24 Hours (Table) 03/04/21 03/05/21 03/05/21 Range/Units 05:10 14:04 22:20 WBC 14.0 H 11.5 H (3.8-10.6) k/uL RBC 2.70 L 2.06 L (4.30-5.90) m/uL Hgb 8.5 L D 6.5 L* D (13.0-17.5) gm/dL Hct 24.7 L 18.7 L* (39.0-53.0) % RDW 16.7 H 17.1 H (11.5-15.5) % Plt Count 93 L 86 L (150-450) k/uL APTT (22.0-30.0) sec Fibrinogen (200-500) mg/dL Chloride (98-107) mmol/L Creatinine (0.66-1.25) mg/dL Glucose (74-99) mg/dL Calcium (8.4-10.2) mg/dL Crossmatch See Detail 03/06/21 03/06/21 03/06/21 Range/Units 06:49 06:49 08:22 WBC 10.8 H (3.8-10.6) k/uL RBC 2.77 L (4.30-5.90) m/uL Hgb 8.3 L D (13.0-17.5) gm/dL Hct 25.3 L (39.0-53.0) % RDW 16.7 H (11.5-15.5) % Plt Count 87 L (150-450) k/uL APTT 21.3 L (22.0-30.0) sec Fibrinogen 137 L (200-500) mg/dL Chloride 118 H (98-107) mmol/L Creatinine 0.58 L (0.66-1.25) mg/dL Glucose 101 H (74-99) mg/dL Calcium 7.4 L (8.4-10.2) mg/dL Crossmatch Assessment and Plan Assessment: 1 Syncope secondary to severe anemia secondary to visible vessel or active bleeding noted of the duodenum bowel suggestive of Dieulafoy lesion, status post injection of epinephrine and Endo Clip placement with good hemostasis per EGD performed today 03/05/2021 2 Severe anemia secondary to above requiring 7 units packed red blood cells so far this admission. Current hemoglobin 8.3. 3 Previous history of alcohol abuse 4 Previous history of GI bleed 5 Chronic and ongoing tobacco dependence 6 Hyperlipidemia Plan: The patient was seen and evaluated by Dr. Talley Status post epinephrine injection and clipping of a duodenal ulcer Receiving his seventh unit of packed red blood cells Continue to monitor hemoglobin Decrease 0.9 normal saline to 75 ML's per hour Tolerating clear liquids We will continue to follow I, the cosigning physician, performed a history & physical examination of the patient. Lungs sounds are clear. Maintaining good O2 saturations in the 90s on room air. I discussed the assessment and plan of care with my nurse practi Renata torres. I attest to the above consultation as dictated by her.
--- NOTE | 2021-03-06 11:45 | PN ---
PROGRESS NOTE DATE OF DICTATION: March 06, 2021 Patient is a 60-year-old pleasant white male admitted to hospital with acute GI bleed. He had significant amount of bleeding requiring 7 units of PRBC transfusion in total and last hemoglobin was 8.3 g/dL. He had an upper endoscopy done yesterday and was noted to have a duodenal Dieulafoy's lesion that was injected and Endoclip was placed. The patient had a few black tarry bowel movements through the night. He remains hemodynamically stable. Remains on a clear liquid diet. PHYSICAL EXAMINATION: Appears comfortable. VITAL SIGNS: Stable. Blood pressure 107/63, pulse rate 75 and afebrile. HEENT examination unremarkable. Conjunctivae pin. Sclerae anicteric. Oral cavity no lesions. NECK: No JVD or lymph node enlargement. CHEST was clear to auscultation. HEART: Regular rate and rhythm. ABDOMEN: Soft. Bowel sounds are positive. No organomegaly. EXTREMITIES: No pedal edema. NEURO: He is alert and oriented x3. No focal deficits. LABS: From this morning, WBC 10.8, hemoglobin 8.3, platelets 87,000. BUN 16, creatinine 0.53. IMPRESSION: Acute upper gastrointestinal bleed status post EGD yesterday that showed a Dieulafoy's lesion in the duodenum, status post injection of epinephrine and Endoclip placement. The patient seems hemodynamically stable. He received total of 7 units of PRBC transfusion during this hospitalization. Past hemoglobin 8.3 g/dL. RECOMMENDATIONS: 1. Continue IV Protonix 40 b.i.d. 2. Remain on a clear liquid diet. 3. Monitor CBC every 6 hours. 4. We will follow with you closely. Thank you for this consultation. MMODL / IJN: [id number] /
--- NOTE | 2021-03-06 14:19 | P.PN ---
Subjective Progress Note Date: 03/06/21 (delayed charting seen at 1030) Principal diagnosis: syncope, tarry stools Patient is a 60-year-old male with history of prior GI bleed, dyslipidemia, and tobacco abuse who presented to the ER with dark tarry stools and syncopal episode. In the ER he underwent an extensive evaluation. Vital signs stable, hemoglobin 7.6, lactic acid 3, influenza A and COVID testing negative. In the ER he try to get up for x-ray and again became dizzy and had an additional episode of black tarry stool. He was ordered 1 unit of packed red blood cells. He was admitted for further monitoring. GI was consulted and started him on a clear liquid diet and nothing by mouth after midnight. On the floor patient began having hematemesis and became tachycardic and had worsening dizziness. Stat repeat CBC. He also hemoglobin of 5.1. 2 additional units of packed red blood cells were ordered as well as 1 g of calcium gluconate and the patient was transferred to the ICU. His hemoglobin remained low and initial 2 units of packed red blood cells were ordered. He underwent EGD on the morning of 03/05 which demonstrated visible vessel with active bleeding in the duodenal all sugg estive of a Dieulafoy's lesion which was injected with epi and had an endoclip placed with good results. He required additional blood transfusion. CT abd and pelvis: no acute process Chest x-ray: no acute process Lumbar spine: stable postoperative changes Patient seen and examined at bedside. Feeling okay though his dizziness continues. No chest pain. Abdominal pain is improving. No shortness of breath. No recurrent nausea, vomiting, or diarrhea. Did pass a dark-colored stool today per nursing. General: ill appearing, no distress, appears at stated age Derm: + Pallor, warm, dry Head: atraumatic, normocephalic, symmetric Eyes: EOMI, no lid lag, anicteric sclera Mouth: no lip lesion, mucus membranes moist Cardiovascular: S1S2 reg, no murmur, positive posterior tibial pulse bilateral, Lungs: Decreased bs bilateral, no rhonchi, no rales , no accessory muscle use Abdominal: soft, nontender to palpation, no guarding, no appreciable organomegaly Ext: no gross muscle atrophy, no edema, no contractures Neuro: CN II-XI grossly intact, no focal neuro deficits Psych: Alert, oriented, appropriate affect Upper GI bleed secondary to Dieulafoy's lesion , acute blood loss anemia, -Status post 7 units of packed red blood cells, coagulation studies are normal. - repeat this afternoon and then in AM - GI recs - on PPI Thrombocytopenia - follow CBC - no indication for transfusion Probable syncope, fall - due to acute blood loss - check orthostatic once feeling like he is able to stand - check echo - Tele Tobacco abuse - cessation - nicotine replacement if needed Acute on Chronic back pain - conitnue zanaflex, percocet, dilaudid Depression - Paxil DVT prophylaxis: SCDs Discussed with: patient, nursing Anticipated discharge: 3-[address]: home A total of 35 minutes was spent on the care of this complex patient more than 50% of the time was spent in counseling and care coordination. Objective - Vital Signs Vital signs: Vital Signs Temp 97.1 F L 03/06/21 12:00 Pulse 65 03/06/21 13:00 Resp 14 03/06/21 13:00 BP 106/68 03/06/21 13:00 Pulse Ox 99 03/06/21 13:00 Intake & Output 03/05/21 03/06/21 03/06/21 18:59 06:59 18:59 Intake Total 2320 2430 625 Output Total 1000 1025 1375 Balance 1320 1405 -750 Weight 97 kg Intake: IV 1600 1500 625 Sodium Chloride 0.9% 1, 1500 1500 625 000 ml @ 125 mls/hr IV . Q8H [facility] Rx#:[id number] Tube Feeding 100 Blood Product 620 930 Rc As-1 Unit 310 [id number] Rc As-1 Unit 310 [id number] Rc As-1 Unit 310 [id number] Rc As-1 Unit 310 [id number] Output: Urine 1000 1025 1375 Other: Voiding Method Urinal Urinal Urinal # Voids 1 0 - Labs CBC & Chem 7: 03/06/21 06:49 03/06/21 06:49 Labs: Abnormal Lab Results - Last 24 Hours (Table) 03/04/21 03/05/21 03/05/21 Range/Units 05:10 14:04 22:20 WBC 14.0 H 11.5 H (3.8-10.6) k/uL RBC 2.70 L 2.06 L (4.30-5.90) m/uL Hgb 8.5 L D 6.5 L* D (13.0-17.5) gm/dL Hct 24.7 L 18.7 L* (39.0-53.0) % RDW 16.7 H 17.1 H (11.5-15.5) % Plt Count 93 L 86 L (150-450) k/uL APTT (22.0-30.0) sec Fibrinogen (200-500) mg/dL Chloride (98-107) mmol/L Creatinine (0.66-1.25) mg/dL Glucose (74-99) mg/dL Calcium (8.4-10.2) mg/dL Crossmatch See Detail 03/06/21 03/06/21 03/06/21 Range/Units 06:49 06:49 08:22 WBC 10.8 H (3.8-10.6) k/uL RBC 2.77 L (4.30-5.90) m/uL Hgb 8.3 L D (13.0-17.5) gm/dL Hct 25.3 L (39.0-53.0) % RDW 16.7 H (11.5-15.5) % Plt Count 87 L (150-450) k/uL APTT 21.3 L (22.0-30.0) sec Fibrinogen 137 L (200-500) mg/dL Chloride 118 H (98-107) mmol/L Creatinine 0.58 L (0.66-1.25) mg/dL Glucose 101 H (74-99) mg/dL Calcium 7.4 L (8.4-10.2) mg/dL Crossmatch
[2021-03-06 17:57] LABS: Anisocytosis Slight; HCT 24.7 % (39.0-53.0); MCH 30.1 pg (25.0-35.0); MCHC 32.6 g/dL (31.0-37.0); MCV 92.2 fL (80.0-100.0); Mean Platelet Volume 7.6; Platelet Count 106 k/uL (150-450); RBC 2.67 m/uL (4.30-5.90); RDW 17.4 % (11.5-15.5); WBC 9.4 k/uL (3.8-10.6)
[2021-03-06] MEDS: ATORVASTATIN 40 MG TAB PO SCH (19:45)
[2021-03-07] MEDS: HYDROmorphone 0.5 MG/0.5 ML SYRINGE IVP PRN ×3 (04:12→10:09)
[2021-03-07 04:27] LABS: Anisocytosis Slight; HCT 23.6 % (39.0-53.0); HGB 8.1 gm/dL (13.0-17.5); MCH 31.6 pg (25.0-35.0); MCHC 34.5 g/dL (31.0-37.0); MCV 91.5 fL (80.0-100.0); Mean Platelet Volume 7.8; Platelet Count 115 k/uL (150-450); RBC 2.58 m/uL (4.30-5.90); WBC 7.1 k/uL (3.8-10.6)
[2021-03-07 04:43] LABS: ALT 61 U/L (4-49); AST 57 U/L (17-59); African American GFR (CKD) >90 (>60 ml/min/1.73 sqM); Alkaline Phosphatase 31 U/L (38-126); Anion Gap 0 mmol/L; Blood Urea Nitrogen 8 mg/dL (9-20); Calcium 7.4 mg/dL (8.4-10.2); Carbon Dioxide 26 mmol/L (22-30); Chloride 114 mmol/L (98-107); Glucose 94 mg/dL (74-99); Magnesium 1.7 mg/dL (1.6-2.3); Non-African American GFR(CKD) >90 (>60 ml/min/1.73 sqM); Phosphorus 2.5 mg/dL (2.5-4.5); Potassium 3.3 mmol/L (3.5-5.1); Sodium 140 mmol/L (137-145); Total Bilirubin 0.3 mg/dL (0.2-1.3); Total Protein 3.7 g/dL (6.3-8.2)
[2021-03-07] MEDS ORDERED: Potassium Replacement Protocol 1 EACH MISC MISCELLANE PRN (05:41)
[2021-03-07] MEDS: oxyCODONE-APAP 10-325MG 1 EACH TAB PO PRN ×3 (05:43→20:21)
[2021-03-07] MEDS: POTASSIUM CHLORIDE ER 20 MEQ TAB.ER PO SCH ×2 (05:45→07:10)
[2021-03-07] MEDS ORDERED: Magnesium Replacement Protocol 1 EACH MISC MISCELLANE PRN (06:21)
--- NOTE | 2021-03-07 06:49 | P.PN ---
Subjective Progress Note Date: 03/06/21 This is a 58-year-old male patient was hospitalized GI bleeding. The patient had severe anemia secondary to a upper GI bleed as the patient underwent an EGD and the patient was found to have a visible vessel from the duodenum and the vessel was injected with epinephrine and Endo Clip was applied with adequate hemostasis this EGD was done on 03/05/2021. During the course of the treatment, the patient required pectoralis transfusion and the condition was stabilized. The patient remains on IV fluids normal state rate of 75 cc/ hour. He was allowed clear liquid Diet yesterday. The patient also has history of previous alcohol use, smoking and hyperlipidemia. He was having black tarry stools and was getting weak and progressively worse and he had a bout of syncope and he presented to us with a hemoglobin of 7.3 and during the course of treatment a the patient received a total of 7 units of packed RBC in addition to IV fluids. Hemoglobin for yesterday was 8.0 after he dropped down to as low as 6.5. This morning, the patient's hemoglobin is at 8.1. His platelet counts are up to 106 from yesterday and this is a coagulation profile is all within normal limits. Objective - Vital Signs Vital signs: Vital Signs Temp 97.1 F L 03/06/21 16:00 Pulse 72 03/06/21 19:00 Resp 16 03/06/21 19:00 BP 102/63 03/06/21 19:00 Pulse Ox 96 03/06/21 19:00 Intake & Output 03/06/21 03/06/21 03/07/21 06:59 18:59 06:59 Intake Total 2430 1100 75 Output Total 1025 2425 0 Balance 1405 -1325 75 Weight 97 kg Intake: IV 1500 1000 75 Sodium Chloride 0.9% 1, 1500 1000 75 000 ml @ 125 mls/hr IV . Q8H [facility] Rx#:[id number] Oral 100 Blood Product 930 Rc As-1 Unit 310 [id number] Rc As-1 Unit 310 [id number] Output: Urine 1025 2425 0 Other: Voiding Method Urinal Urinal # Voids 1 0 - Exam GENERAL EXAM: Alert, very pleasant 60-year-old gentleman, on room air, comfortab le in no apparent distress. HEAD: Normocephalic. EYES: Normal reaction of pupils, equal size. NOSE: Clear with pink turbinates. THROAT: No erythema or exudates. NECK: No masses, no JVD. CHEST: No chest wall deformity. LUNGS: Equal air entry with no crackles, wheeze, rhonchi or dullness. CVS: S1 and S2 normal with no audible murmur, regular rhythm. ABDOMEN: No hepatosplenomegaly, normal bowel sounds, no guarding or rigidity. SPINE: No scoliosis or deformity SKIN: No rashes CENTRAL NERVOUS SYSTEM: No focal deficits, tone is normal in all 4 extremities. EXTREMITIES: There is no peripheral edema. No clubbing, no cyanosis. Peripheral pulses are intact. - Labs CBC & Chem 7: 03/07/21 04:02 03/07/21 04:02 Labs: Abnormal Lab Results - Last 24 Hours (Table) 03/04/21 03/05/21 03/06/21 Range/Units 05:10 22:20 06:49 WBC 11.5 H 10.8 H (3.8-10.6) k/uL RBC 2.06 L 2.77 L (4.30-5.90) m/uL Hgb 6.5 L* D 8.3 L D (13.0-17.5) gm/dL Hct 18.7 L* 25.3 L (39.0-53.0) % RDW 17.1 H 16.7 H (11.5-15.5) % Plt Count 86 L 87 L (150-450) k/uL APTT (22.0-30.0) sec Fibrinogen (200-500) mg/dL Chloride (98-107) mmol/L Creatinine (0.66-1.25) mg/dL Glucose (74-99) mg/dL Calcium (8.4-10.2) mg/dL Crossmatch See Detail 03/06/21 03/06/21 03/06/21 Range/Units 06:49 08:22 17:16 WBC (3.8-10.6) k/uL RBC 2.67 L (4.30-5.90) m/uL Hgb 8.0 L (13.0-17.5) gm/dL Hct 24.7 L (39.0-53.0) % RDW 17.4 H (11.5-15.5) % Plt Count 106 L (150-450) k/uL APTT 21.3 L (22.0-30.0) sec Fibrinogen 137 L (200-500) mg/dL Chloride 118 H (98-107) mmol/L Creatinine 0.58 L (0.66-1.25) mg/dL Glucose 101 H (74-99) mg/dL Calcium 7.4 L (8.4-10.2) mg/dL Crossmatch Assessment and Plan Plan: 1 Syncope secondary to severe anemia secondary to visible vessel or active bleeding noted of the duodenum bowel suggestive of Dieulafoy lesion, status post injection of epinephrine and Endo Clip placement with good hemostasis per EGD performed today 03/05/2021 2 Severe anemia secondary to above requiring 7 units packed red blood cells so far this admission. Current hemoglobin 8.1 and there has been no evidence of any acute bleeding over the past 24 hours 3 Previous history of alcohol abuse 4 Previous history of GI bleed 5 Chronic and ongoing tobacco dependence 6 Hyperlipidemia 7 chronic back pain and the patient has been maintained on methadone 10 mg every 4 hours on a when necessary basis and the patient is currently receiving Dil audid 0.5 every 3 hours and Percocet 10/325 every 8 hours on a when necessary basis Plan: Hemodynamically stable Status post epinephrine injection and clipping of a duodenal ulcer Received a total of 7 unit of packed red blood cells Continue to monitor hemoglobin Decrease 0.9 normal saline to 75 ML's per hour Diet as tolerated to be advanced Restart Paxil 20 mg by mouth daily Tolerating clear liquids Transfer this patient out of the intensive care unit
[2021-03-07] MEDS: MAGNESIUM SULFATE-D5W PMX 1 GM in DEXTROSE/WATER 1 100ML.BAG IVPB SCH ×2 (07:10→08:52)
[2021-03-07] MEDS ORDERED: POTASSIUM CHLORIDE ER 20 MEQ TAB.ER PO STA (07:24)
--- NOTE | 2021-03-07 07:36 | P.PN ---
Subjective Progress Note Date: 03/07/21 This is a 58-year-old male patient was hospitalized GI bleeding. The patient had severe anemia secondary to a upper GI bleed as the patient underwent an EGD and the patient was found to have a visible vessel from the duodenum and the vessel was injected with epinephrine and Endo Clip was applied with adequate hemostasis this EGD was done on 03/05/2021. During the course of the treatment, the patient required pectoralis transfusion and the condition was stabilized. The patient remains on IV fluids normal state rate of 75 cc/ hour. He was allowed clear liquid Diet yesterday. The patient also has history of previous alcohol use, smoking and hyperlipidemia. He was having black tarry stools and was getting weak and progressively worse and he had a bout of syncope and he presented to us with a hemoglobin of 7.3 and during the course of treatment a the patient received a total of 7 units of packed RBC in addition to IV fluids. Hemoglobin for yesterday was 8.0 after he dropped down to as low as 6.5. This morning, the patient's hemoglobin is at 8.1. His platelet counts are up to 106 from yesterday and this is a coagulation profile is all within normal limits. Objective - Vital Signs Vital signs: Vital Signs Temp 97.9 F 03/07/21 04:00 Pulse 63 03/07/21 07:00 Resp 13 03/07/21 07:00 BP 97/49 03/07/21 07:00 Pulse Ox 95 03/07/21 07:00 Intake & Output 03/06/21 03/07/21 03/07/21 18:59 06:59 18:59 Intake Total 1100 1140 75 Output Total 2425 1974 Balance -1325 -835 75 Weight 96.5 kg Intake: IV 1000 900 75 Sodium Chloride 0.9% 1, 1000 75 000 ml @ 125 mls/hr IV . Q8H KARLA Rx#:[id number] Sodium Chloride 0.9% 1, 825 75 000 ml @ 75 mls/hr IV . [id number] KARLA Rx#:[id number] Oral 100 240 Output: Urine 2425 1974 Other: Voiding Method Urinal Urinal # Voids 1 0 - Exam GENERAL EXAM: Alert, very pleasant 60-year-old gentleman, on room air, comfortable in no apparent distress. HEAD: Normocephalic. EYES: Normal reaction of pupils, equal size. NOSE: Clear with pink turbinates. THROAT: No erythema or exudates. NECK: No masses, no JVD. CHEST: No chest wall deformity. LUNGS: Equal air entry with no crackles, wheeze, rhonchi or dullness. CVS: S1 and S2 normal with no audible murmur, regular rhythm. ABDOMEN: No hepatosplenomegaly, normal bowel sounds, no guarding or rigidity. SPINE: No scoliosis or deformity SKIN: No rashes CENTRAL NERVOUS SYSTEM: No focal deficits, tone is normal in all 4 extremities. EXTREMITIES: There is no peripheral edema. No clubbing, no cyanosis. Peripheral pulses are intact. - Labs CBC & Chem 7: 03/07/21 04:02 03/07/21 04:02 Labs: Abnormal Lab Results - Last 24 Hours (Table) 03/06/21 03/06/21 03/06/21 Range/Units 06:49 08:22 17:16 WBC 10.8 H (3.8-10.6) k/uL RBC 2.77 L 2.67 L (4.30-5.90) m/uL Hgb 8.3 L D 8.0 L (13.0-17.5) gm/dL Hct 25.3 L 24.7 L (39.0-53.0) % RDW 16.7 H 17.4 H (11.5-15.5) % Plt Count 87 L 106 L (150-450) k/uL APTT 21.3 L (22.0-30.0) sec Fibrinogen 137 L (200-500) mg/dL Potassium (3.5-5.1) mmol/L Chloride (98-107) mmol/L BUN (9-20) mg/dL Creatinine (0.66-1.25) mg/dL Calcium (8.4-10.2) mg/dL ALT (4-49) U/L Alkaline Phosphatase (38-126) U/L Total Protein (6.3-8.2) g/dL Albumin (3.5-5.0) g/dL 03/07/21 03/07/21 Range/Units 04:02 04:02 WBC (3.8-10.6) k/uL RBC 2.58 L (4.30-5.90) m/uL Hgb 8.1 L (13.0-17.5) gm/dL Hct 23.6 L (39.0-53.0) % RDW 17.0 H (11.5-15.5) % Plt Count 115 L (150-450) k/uL APTT (22.0-30.0) sec Fibrinogen (200-500) mg/dL Potassium 3.3 L (3.5-5.1) mmol/L Chloride 114 H (98-107) mmol/L BUN 8 L (9-20) mg/dL Creatinine 0.57 L (0.66-1.25) mg/dL Calcium 7.4 L (8.4-10.2) mg/dL ALT 61 H (4-49) U/L Alkaline Phosphatase 31 L (38-126) U/L Total Protein 3.7 L (6.3-8.2) g/dL Albumin 2.0 L (3.5-5.0) g/dL Assessment and Plan Plan: 1 Syncope secondary to severe anemia secondary to visible vessel or active bleeding noted of the duodenum bowel suggestive of Dieulafoy lesion, status post injection of epinephrine and Endo Clip placement with good hemostasis per EGD performed today 03/05/2021 2 Severe anemia secondary to above requiring 7 units packed red blood cells so far this admission. Current hemoglobin 8.1 and there has been no evidence of any acute bleeding over the past 24 hours 3 Previous history of alcohol abuse 4 Previous history of GI bleed 5 Chronic and ongoing tobacco dependence 6 Hyperlipidemia 7 chronic back pain and the patient has been maintained on methadone 10 mg every 4 hours on a when necessary basis and the patient is currently receiving Dilaudid 0.5 every 3 hours and Percocet 10/325 every 8 hours on a when necessary basis Plan: Hemodynamically stable Status post epinephrine injection and clipping of a duodenal ulcer Received a total of 7 unit of packed red blood cells Continue to monitor hemoglobin Decrease 0.9 normal saline to 75 ML's per hour Diet as tolerated to be advanced Restart Paxil 20 mg by mouth daily Tolerating clear liquids Transfer this patient out of the intensive care unit
[2021-03-07] MEDS: PANTOPRAZOLE 40 MG/10 ML VIAL IV SCH ×2 (08:53→20:22)
[2021-03-07] MEDS: tiZANidine 4 MG TAB PO SCH ×2 (08:53→20:21)
[2021-03-07] MEDS: PARoxetine 20 MG TAB PO SCH (08:53)
[2021-03-07] MEDS ORDERED: HYDROmorphone 0.5 MG/0.5 ML SYRINGE IVP STA (10:34)
--- NOTE | 2021-03-07 11:50 | P.PN ---
Subjective Progress Note Date: 03/07/21 Principal diagnosis: Acute GI bleed, syncope She is a 60-year-old pleasant male who was admitted to the hospital with acute GI bleed. He had significant amount of bleeding requiring 7 units of PRBC transfusion. 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 He states he last had a dark bowel movement yesterday morning but none since then. He denies any severe abdominal pain, nausea, or vomiting. He is been on a clear liquid diet. Hemoglobin was stable at 8.1. Objective - Vital Signs Vital signs: Vital Signs Temp 97.9 F 03/07/21 04:00 Pulse 63 03/07/21 07:00 Resp 13 03/07/21 07:00 BP 97/49 03/07/21 07:00 Pulse Ox 95 03/07/21 07:00 Intake & Output 03/06/21 03/07/21 03/07/21 18:59 06:59 18:59 Intake Total 1100 1140 75 Output Total 2425 1974 Balance -1325 -835 75 Weight 96.5 kg Intake: IV 1000 900 75 Sodium Chloride 0.9% 1, 1000 75 000 ml @ 125 mls/hr IV . Q8H [facility]ARLA Rx#:[id number] Sodium Chloride 0.9% 1, 825 75 000 ml @ 75 mls/hr IV . [id number] [facility]ARLA Rx#:[id number] Oral 100 240 Output: Urine 2424 1974 Other: Voiding Method Urinal Urinal # Voids 1 0 - Exam General appearance: The patient is alert, oriented, appears in no acute distress. HET: Head is normocephalic and atraumatic. Conjunctiva pink. Sclera anicteric. Neck: Supple without lymphadenopathy. Abdomen: Soft, epigastric tenderness nondistended with bowel sounds. No guarding or rigidity. Extremities: Normal skin color and turgor. No pedal edema Skin: No rashes, no jaundice Neurological: No focal deficits. Alert and oriented 3. - Labs CBC & Chem 7: 03/07/21 04:02 03/07/21 04:02 Labs: Abnormal Lab Results - Last 24 Hours (Table) 03/06/21 03/06/21 03/07/21 Range/Units 08:22 17:16 04:02 RBC 2.67 L 2.58 L (4.30-5.90) m/uL Hgb 8.0 L 8.1 L (13.0-17.5) gm/dL Hct 24.7 L 23.6 L (39.0-53.0) % RDW 17.4 H 17.0 H (11.5-15.5) % Plt Count 106 L 115 L (150-450) k/uL APTT 21.3 L (22.0-30.0) sec Fibrinogen 137 L (200-500) mg/dL Potassium (3.5-5.1) mmol/L Chloride (98-107) mmol/L BUN (9-20) mg/dL Creatinine (0.66-1.25) mg/dL Calcium (8.4-10.2) mg/dL ALT (4-49) U/L Alkaline Phosphatase (38-126) U/L Total Protein (6.3-8.2) g/dL Albumin (3.5-5.0) g/dL 03/07/21 Range/Units 04:02 RBC (4.30-5.90) m/uL Hgb (13.0-17.5) gm/dL Hct (39.0-53.0) % RDW (11.5-15.5) % Plt Count (150-450) k/uL APTT (22.0-30.0) sec Fibrinogen (200-500) mg/dL Potassium 3.3 L (3.5-5.1) mmol/L Chloride 114 H (98-107) mmol/L BUN 8 L (9-20) mg/dL Creatinine 0.57 L (0.66-1.25) mg/dL Calcium 7.4 L (8.4-10.2) mg/dL ALT 61 H (4-49) U/L Alkaline Phosphatase 31 L (38-126) U/L Total Protein 3.7 L (6.3-8.2) g/dL Albumin 2.0 L (3.5-5.0) g/dL Assessment and Plan (1) GI bleed Narrative/Plan: This is a pleasant 60-year-old male who presented to the emergency department a fter feeling dizzy and he got up to go to the bathroom and subsequently passed out and fell. He states he had a dark stool the day before and was not feeling well, states he was just feeling "off". He states he has a history in June 2020 where he had a similar episode and he fell which at that time states he fractured his back and neck as well as lost his front teeth, he was found to be anemic at that time and underwent an upper endoscopy while she was in the [facility]. He states he was told he had an ulcer. He has not had any follow-up since then. He also states he is not on any NSAIDs, anticoagulation, and not on any proton pump inhibitors. He was noted to have a hemoglobin is 7.6 on admission and given 1 unit of PRBC transfusion. He also had another black tarry stool while he was in the emergency room. Likely dealing with peptic ulcer disease, however have to consider AVM, gastritis or esophagitis. Also need to consider lower GI bleed as a possibility. A shunt is status post upper endoscopy with a visible vessel with active bleeding noted in the duodenal bulb suggestive of a Dieulafoy lesion status post epinephrine injection and Endo Clip placement with good hemostasis, and a small hiatal hernia. Current Visit: Yes Status: Acute Code(s): K92.2 - GASTROINTESTINAL HEMORRHAGE, UNSPECIFIED SNOMED Code(s): 52074934 (2) Syncope and collapse Current Visit: Yes Status: Acute Code(s): R55 - SYNCOPE AND COLLAPSE SNOMED Code(s): 883317134 Plan: 1. New symptomatic supportive care 2. Advance to full liquid diet 3. Repeat daily CBC 4. Continue Protonix 40 mg IV twice a day Thank you for this consultation, we will continue to follow Dr. Brittany Lawler I agree with the dictator's note, documented as a scribe by Radha Barker.
--- NOTE | 2021-03-07 12:22 | CT ---
EXAMINATION TYPE: CT thor lumbar spine wo con DATE OF EXAM: 03/07/2021 COMPARISON: CT abdomen and pelvis March 04, 2021 HISTORY: Fall injury recently with pain. CT DLP: 1585 mGycm Automated exposure control for dose reduction was used. FINDINGS: There are 5 lumbar type vertebra. There are posterior interpedicular rods and screws bilaterally at L 3-S1 level. Metallic disc material lumbosacral junction. Moderate disc space narrowing with disc calc ification L4-L5 level. Mild to moderate disc space narrowing with moderate anterior spurring L2-L3 le ngoc. There is mild to moderate multilevel anterior and lateral spurring of the midthoracic spine thro ugh mid lumbar spine. Moderate disc space narrowing and anterior spurring at T7-T8 level. Alignment i s satisfactory and sagittal and coronal images. Spinal canal grossly preserved. No acute fracture or dislocation is seen. Axial images show artifact from metallic hardware in the mid to lower lumbar spine. There are laminec tisha defects with spinous process resection in the lower lumbar spine. There are new tiny bilateral pleural effusions. Mild to moderate calcified plaque of the distal abdom inal aorta extends into iliac branch vessels. IMPRESSION: No acute or subacute fracture or dislocation in the thoracolumbar spine
[2021-03-07] MEDS ORDERED: DEXAMETHASONE SOD PHOSPHATE 4 MG/ML 1 ML VIAL IV PRN (12:32)
--- NOTE | 2021-03-07 13:25 | P.CNOR ---
History of Present Illness - HPI Consult date: 03/07/21 Consult reason: low back pain History of present illness: 58-year-old male who presented with syncope and a fall after a acute blood loss anemia secondary to his GI bleed has been in a hospital for several days now when they attempted to get him up he had severe back pain and was unable to stand very long secondary to the pain. He was a pain in his low back on the left-hand side is tender to palpation in this area and swollen. He states he does have numbness and tingling in his legs but this is somewhat old and is having this for a long time. He states that his back surgeons out of [place] he has not seen him recently. He states pain is back left-hand side as well as right hand side. He complains of some pain in his right testicle but no numbness or tingling. He denies any bowel or bladder incontinence. Review of Systems 14 points review of systems completed and as stated in HPI, all other systems reviewed are negative. Past Medical History Past Medical History: COPD, GI Bleed, Hyperlipidemia History of Any Multi-Drug Resistant Organisms: None Reported Past Surgical History: Hernia Repair, Orthopedic Surgery, Tonsillectomy Additional Past Surgical History / Comment(s): Prostate surgery, Carpal tunnel release,cervical discectomy (C-3,C-4), Left rotator cuff repair, Left thumb re- attachment, Left knee surgery, Right knee replacement, Tonsillectomy, Lumbar spine surgery Past Psychological History: No Psychological Hx Reported Smoking Status: Current every day smoker Past Alcohol Use History: None Reported Past Drug Use History: None Reported Medications and Allergies Home Medications Medication Instructions Recorded Confirmed Type Atorvastatin [Lipitor] 40 mg PO HS 03/04/21 03/04/21 History Disulfiram [Antabuse] 250 mg PO DAILY 03/04/21 03/04/21 History Levocetirizine Dihydrochloride 5 mg PO DAILY 03/04/21 03/04/21 History Methadone [Dolophine] 10 mg PO Q4H PRN 03/04/21 03/04/21 History PARoxetine [Paxil] 20 mg PO DAILY 03/04/21 03/04/21 History oxyCODONE-APAP 10-325MG [Percocet 1 tab PO Q8HR PRN 03/04/21 03/04/21 History 10-325 mg] tiZANidine [Zanaflex] 4 mg PO BID 03/04/21 03/04/21 History Allergies Allergy/AdvReac Type Severity Reaction Status Date / Time No Known Allergies Allergy Verified 03/04/21 08:06 Physical Examination Osteopathic Statement: *. No significant issues noted on an osteopathic structural exam other than those noted in the History and Physical/Consult. PHYSICAL EXAMINATION: Vitals: Stable General: Awake, alert, appropriate for age, in no acute distress. HEENT: No unusual neck masses around region of lateral neck triangle, thyroid, supraclavicular groove. Extremities: Skin warm and dry without no acute lesions, coloration, temperature, skin intact, no tenderness or erythema. Integument: Hairy patches: Absent Dorsal skin dimples: Absent Cafe au lait spots: Absent Surgical incisions: Posterior midline incision well-healed no erythema or ecchymosis or edema Palpation: Please see Pain drawing on Intake sheet for further detail. (Tenderness = T, Nontender = NT, Swelling = S, Ecchymosis = E) Findings on Midline and paraspinal palpation and percussion: Cervical: NT Thoracic: NT Lumbar: Tennis to palpation of the lower lumbar spine on the left side and right side. There is swelling noted in this area there is no ecchymosis. It has the feeling of somewhat of a fascial dehiscence on the left-hand side with a step- off from the medial to lateral position. There is a collection of fluid here is likely heaven to a seromatous type fluid or inflammation. No fluctuance otherwise Sacral: NT Special findings: None POSTURAL and MUSCULO-SKELETAL EVALUATION: Coronal Balance: Neutral Recumbent testing: Patient can lay flat on back Sagittal Balance: Neutral Shoulder Profile: Level Pelvic Girdle: Level Neck ROM: Unrestricted in six directions Lumbar ROM: Unrestricted in six directions Shoulder ROM: Symmetric in abduction, ER/IR Hip ROM: Symmetric in abduction, adduction, ER/IR Knee ROM: Symmetric and intact in Flexion / extension Hands: Normal appearing structure L and R Feet: Normal appearing structure L and R VASCULAR STATUS : Wrist Pulses: 2/4 bilateral radial and ulnar Pedal Pulses: 2/4 bilateral DP and PT Color: Normal Edema: None NEUROLOGIC EXAMINATION: Mental Status: Awake and alert, fully oriented, with normal attention, concentration and memory, and fluent, appropriate speech. Cranial Nerves: I: Olfactory not tested. II: Visual acuity normal, no visual field deficit noted with confrontation. III,IV: Normal pupillary reflexes & intact extraocular movements without nystagmus. V,: Intact symmetrical facial sensation. VII: Intact symmetrical facial motor movement VIII: Hearing intact. IX,X: Intact gag, swallow, & normal voice. XI: Sternocleidomastoid, trapezius function intact. XII: Tongue midline with normal movements. Special Tests: L'hermitte's Sign: Absent Spurling'Sign: Absent Bilateral Cubital percussion test: Absent Bilateral Melissa-Tinel sign - Carpal region: Absent Bilateral Straight Leg Raising: Absent Bilateral Motor Exam (0-5/5, N/T) STRENGTH UPPER EXTREMITY Shoulder Abd (Not part of EBONY Motor score): RIGHT 5 LEFT 5 Elbow Flexors: RIGHT 5 LEFT 5 Elbow Extensor: RIGHT 5 LEFT 5 Wrrist Dorsiflexors: RIGHT 5 LEFT 5 Finger Abductor: RIGHT 5 LEFT 5 Home Paraprofessional: RIGHT 5 LEFT 5 LOWER EXTREMITY Hip Flexor (Not part of EBONY Motor Score): RIGHT 5 LEFT 5 Knee Flexor: RIGHT 5 LEFT 5 Knee Extensor: RIGHT 5 LEFT 5 Ankle Dorsiflexion: RIGHT 5 LEFT 5 Ankle Plantarflexion: RIGHT 5 LEFT 5 EHL: RIGHT 5 LEFT 5 FHL: RIGHT 5 LEFT 5 EBONY Motor Score: RIGHT 50/50 LEFT 50/50 The patient does not have any focal deficits or weakness however he does have exquisite pain with motion of any of his legs or upper extremities secondary to his back being extremely painful. REFLEXES Biecp: RIGHT 2 LEFT 2 Tricep: RIGHT 2 LEFT 2 Brachioradialis: RIGHT 2 LEFT 2 Patellar: RIGHT 2 LEFT 2 Achilles: RIGHT 2 LEFT 2 Pathological Reflexes Nieto's: RIGHT Absent LEFT Absent Babinski: RIGHT Absent LEFT Absent Clonus: RIGHT None LEFT None SENSORY Joint Position: Intact bilaterally Vibration Intact bilaterally Pain and LT sense Intact C5-T1 and L2-S1 Dermatomal deficit None Gait and Functional Evaluation: Ambulatory aids: Independent normally Romberg's test: Intact bilaterally. Toe walk/ heel walk / heel-toe walk intact while maintaining satisfactory balance. Squatting and straightening out without assistance to a minimum of 60 degrees knee flexion Single leg stance: intact/ Trendelenburg sign negative bilaterally Hand and finger dexterity intact bilaterally. Disdiadochokinesis examination negative bilaterally. Results Lumbar spine films obtained in the emergency department are reviewed. This demonstrates a postsurgical changes at L3 to S1 with posterior lateral fusion L3 through S1 and interbody fusion L5-S1. Rods and screws appear to be in good position cage at L5-S1 was in good position no evidence of meera fracture screw fracture or migration mild soft tissue swelling noted posterior to the hardware there is minor adjacent segment disease at L2-L3 which is noted. CT of the thoracolumbar spine is also reviewed. This demonstrates significant postsurgical changes L3 to S1. All screws appear to be in good position no evidence of hardware or fracture displacement or migration. Good posterior lateral fusion noted good body fusion L5-S1 is adjacent segment disease L2-3 which is noted vacuum disc phenomena. There are no large fluid collections or other evidence of infection or fracture noted. - Labs Labs: Abnormal Lab Results - Last 24 Hours (Table) 03/06/21 03/07/21 03/07/21 Range/Units 17:16 04:02 04:02 RBC 2.67 L 2.58 L (4.30-5.90) m/uL Hgb 8.0 L 8.1 L (13.0-17.5) gm/dL Hct 24.7 L 23.6 L (39.0-53.0) % RDW 17.4 H 17.0 H (11.5-15.5) % Plt Count 106 L 115 L (150-450) k/uL Potassium 3.3 L (3.5-5.1) mmol/L Chloride 114 H (98-107) mmol/L BUN 8 L (9-20) mg/dL Creatinine 0.57 L (0.66-1.25) mg/dL Calcium 7.4 L (8.4-10.2) mg/dL ALT 61 H (4-49) U/L Alkaline Phosphatase 31 L (38-126) U/L Total Protein 3.7 L (6.3-8.2) g/dL Albumin 2.0 L (3.5-5.0) g/dL H & H 03/04/21 03/04/21 03/04/21 Range/Units 05:15 11:54 21:12 Hgb 7.6 L 7.3 L 5.1 L* D (13.0-17.5) gm/dL Hct 22.6 L 22.5 L 15.9 L* (39.0-53.0) % 03/05/21 03/05/21 03/05/21 Range/Units 06:29 14:04 22:20 Hgb 5.6 L* 8.5 L D 6.5 L* D (13.0-17.5) gm/dL Hct 17.0 L* 24.7 L 18.7 L* (39.0-53.0) % 03/06/21 03/06/21 03/07/21 Range/Units 06:49 17:16 04:02 Hgb 8.3 L D 8.0 L 8.1 L (13.0-17.5) gm/dL Hct 25.3 L 24.7 L 23.6 L (39.0-53.0) % Coagulation 03/04/21 03/06/21 Range/Units 05:15 08:22 INR 0.9 1.0 (<1.2) Result Diagrams: 03/07/21 04:02 03/07/21 04:02 Assessment and Plan Assessment: 1. Low back pain s/p ffs 2. s/p L3-S1 PSIF and IBF 3. LE radiculopathy, chronic 4. GI bleed, with ABLA Plan: -Appreciate consult -Appreciate medicine management. Symptom Control: -Pain control: . Recommend adding Decadron for every 4 IV, Flexeril 10 by mouth 3 times a day when necessary spasm Activity: -Aggressive ambulation protocol. OOB with all meals. OOB or in chair 4-5x daily. -PT/OT LSO brace for support Prophylaxis: -TEDs, SCDs, mechanical ppx. OK for heparin today. Early ambulation is best. -GI ppx. Imaging/labs: -CT and x-rays reviewed C reports -Trend labs as appropriate Intervention: LSO Pain management PT OT Dispo: Pending Time with Patient: Greater than 30
[2021-03-07] MEDS: HYDROmorphone 1 MG/ML 1 ML SYRINGE IVP PRN ×4 (14:16→23:55)
[2021-03-07] MEDS: CYCLOBENZAPRINE 10 MG TAB PO PRN (14:20)
[2021-03-07] MEDS: SODIUM CHLORIDE 0.9% 1,000 ML IV SCH ×2 (15:09→23:56)
[2021-03-07] MEDS: DEXAMETHASONE SOD PHOSPHATE 4 MG/ML 1 ML VIAL IV SCH ×2 (17:12→23:55)
--- NOTE | 2021-03-07 18:02 | P.PN ---
Subjective Progress Note Date: 03/07/21 (delayed charting seen at 1015) Principal diagnosis: syncope, tarry stools Patient is a 60-year-old male with history of prior GI bleed, dyslipidemia, and tobacco abuse who presented to the ER with dark tarry stools and syncopal episode. In the ER he underwent an extensive evaluation. Vital signs stable, hemoglobin 7.6, lactic acid 3, influenza A and COVID testing negative. In the ER he try to get up for x-ray and again became dizzy and had an additional episode of black tarry stool. He was ordered 1 unit of packed red blood cells. He was admitted for further monitoring. GI was consulted and started him on a clear liquid diet and nothing by mouth after midnight. On the floor patient began having hematemesis and became tachycardic and had worsening dizziness. Stat repeat CBC. He also hemoglobin of 5.1. 2 additional units of packed red blood cells were ordered as well as 1 g of calcium gluconate and the patient was transferred to the ICU. His hemoglobin remained low and initial 2 units of packed red blood cells were ordered. He underwent EGD on the morning of 03/05 which demonstrated visible vessel with active bleeding in the duodenal all sugg estive of a Dieulafoy's lesion which was injected with epi and had an endoclip placed with good results. He required additional blood transfusion. his hemoglobin stabilized by the morning of 03/06. He was out of bed on 03/07 and had worsening of his low back pain. CT abd and pelvis: no acute process Chest x-ray: no acute process Lumbar spine: stable postoperative changes Patient seen and examined at bedside. Back pain is much increased from getting out of bed standing and getting to the chair for the first time. He has a headache. He felt nauseated when he went to stand. He denies any overt abdominal pain. He states the pain medications are not controlling his pain adequately. General: ill appearing, mild distress secondary to pain, appears at stated age Derm: + Pallor, warm, dry Head: atraumatic, normocephalic, symmetric Eyes: EOMI, no lid lag, anicteric sclera Mouth: no lip lesion, mucus membranes moist Cardiovascular: S1S2 reg, no murmur, positive posterior tibial pulse bilateral, Lungs: Decreased bs bilateral, no rhonchi, no rales , no accessory muscle use Abdominal: soft, nontender to palpation, no guarding, no appreciable organomegaly Ext: no gross muscle atrophy, no edema, no contractures Spine: Spinous process tenderness over approximately L3 with some swelling/b ogginess to the left Neuro: CN II-XI grossly intact, no focal neuro deficits Psych: Alert, oriented, appropriate affect Upper GI bleed secondary to Dieulafoy's lesion , acute blood loss anemia, -Status post 7 units of packed red blood cells, coagulation studies are normal. - repeat this afternoon and then in AM - GI recs - on PPI Acute on Chronic back pain - conitnue zanaflex, increase Percocet and Dilaudid -Discussed case with Dr. Rothman's and will consult. CT thoracic and lumbar spine without was ordered. Appears to have a fascial strain - PT/OT consult, LSO brace for comfort, trial of steroids, avoid NSAIDs at this time secondary to recent GI bleed Hypokalemia -Replace -Repeat in a.m. Thrombocytopenia - follow CBC - no indication for transfusion Probable syncope, fall - due to acute blood loss - check orthostatic once feeling like he is able to stand - check echo - Tele Tobacco abuse - cessation - nicotine replacement if needed Depression - Paxil DVT prophylaxis: SCDs Discussed with: patient, nursing Anticipated discharge: 3-[address]: home A total of 35 minutes was spent on the care of this complex patient more than 50% of the time was spent in counseling and care coordination. Objective - Vital Signs Vital signs: Vital Signs Temp 97.8 F 03/07/21 12:00 Pulse 72 03/07/21 14:00 Resp 16 03/07/21 14:00 BP 104/65 03/07/21 12:00 Pulse Ox 97 03/07/21 12:00 Intake & Output 03/06/21 03/07/21 03/07/21 18:59 06:59 18:59 Intake Total 1100 1140 705 Output Total 2425 1975 700 Balance -1325 -835 5 Weight 96.5 kg Intake: IV 1000 900 225 Sodium Chloride 0.9% 1, 1000 75 000 ml @ 125 mls/hr IV . Q8H [facility] Rx#:[id number] Sodium Chloride 0.9% 1, 825 225 000 ml @ 75 mls/hr IV . [id number] [facility] Rx#:[id number] Oral 100 240 480 Output: Urine 2425 8801 700 Other: Voiding Method Urinal Urinal Urinal # Voids 1 0 - Labs CBC & Chem 7: 03/07/21 04:02 03/07/21 04:02 Labs: Abnormal Lab Results - Last 24 Hours (Table) 03/06/21 03/07/21 03/07/21 Range/Units 17:16 04:02 04:02 RBC 2.67 L 2.58 L (4.30-5.90) m/uL Hgb 8.0 L 8.1 L (13.0-17.5) gm/dL Hct 24.7 L 23.6 L (39.0-53.0) % RDW 17.4 H 17.0 H (11.5-15.5) % Plt Count 106 L 115 L (150-450) k/uL Potassium 3.3 L (3.5-5.1) mmol/L Chloride 114 H (98-107) mmol/L BUN 8 L (9-20) mg/dL Creatinine 0.57 L (0.66-1.25) mg/dL Calcium 7.4 L (8.4-10.2) mg/dL ALT 61 H (4-49) U/L Alkaline Phosphatase 31 L (38-126) U/L Total Protein 3.7 L (6.3-8.2) g/dL Albumin 2.0 L (3.5-5.0) g/dL
[2021-03-07] MEDS: ATORVASTATIN 40 MG TAB PO SCH (20:21)
[2021-03-08] MEDS: oxyCODONE-APAP 10-325MG 1 EACH TAB PO PRN ×3 (04:19→20:16)
[2021-03-08] MEDS: HYDROmorphone 1 MG/ML 1 ML SYRINGE IVP PRN ×6 (04:20→23:32)
[2021-03-08] MEDS: DEXAMETHASONE SOD PHOSPHATE 4 MG/ML 1 ML VIAL IV SCH ×4 (06:18→23:32)
[2021-03-08 06:35] LABS: Glucose,Whole Blood 144 mg/dL (75-99)
[2021-03-08 07:51] LABS: Anisocytosis Slight; HCT 24.5 % (39.0-53.0); HGB 8.3 gm/dL (13.0-17.5); MCH 31.7 pg (25.0-35.0); MCHC 33.9 g/dL (31.0-37.0); MCV 93.7 fL (80.0-100.0); Macrocytosis Slight; Mean Platelet Volume 7.4; Platelet Count 152 k/uL (150-450); RBC 2.62 m/uL (4.30-5.90); RDW 18.1 % (11.5-15.5); WBC 7.7 k/uL (3.8-10.6)
[2021-03-08 08:24] LABS: African American GFR (CKD) >90 (>60 ml/min/1.73 sqM); Anion Gap 1 mmol/L; Blood Urea Nitrogen 8 mg/dL (9-20); Calcium 7.6 mg/dL (8.4-10.2); Carbon Dioxide 26 mmol/L (22-30); Chloride 112 mmol/L (98-107); Glucose 124 mg/dL (74-99); Magnesium 2.1 mg/dL (1.6-2.3); Non-African American GFR(CKD) >90 (>60 ml/min/1.73 sqM); Potassium 4.4 mmol/L (3.5-5.1); Sodium 139 mmol/L (137-145)
[2021-03-08] MEDS: PARoxetine 20 MG TAB PO SCH (09:12)
[2021-03-08] MEDS: tiZANidine 4 MG TAB PO SCH ×2 (09:12→20:16)
[2021-03-08] MEDS: PANTOPRAZOLE 40 MG/10 ML VIAL IV SCH ×2 (09:12→20:15)
--- NOTE | 2021-03-08 11:04 | ECHOF ---
Referral Reason:syncope MEASUREMENTS -------- HEIGHT: 182.9 cm WEIGHT: 90.7 kg BP: 126/62 IVSd: 1.2 cm (0.6 - 1.1) LVIDd: 5.1 cm (3.9 - 5.3) LVPWd: 1.4 cm (0.6 - 1.1) IVSs: 1.9 cm LVIDs: 2.8 cm LVPWs: 2.2 cm Ao Diam: 3.7 cm (2.0 - 3.7) AV Cusp: 1.8 cm (1.5 - 2.6) LA Diam: 2.4 cm (2.7 - 3.8) MV EXCURSION: 18.395 mm (> 18.000) MV EF SLOPE: 99 mm/s (70 - 150) EPSS: 0.7 cm MV E Carlos: 0.91 m/s MV DecT: 203 ms MV A Carlos: 0.70 m/s MV E/A Ratio: 1.31 RAP: 5.00 mmHg RVSP: 22.38 mmHg FINDINGS -------- Sinus rhythm. This was a technically difficult study with suboptimal views. The left ventricular size is normal. There is mild concentric left ventricular hypertrophy. Overa ll left ventricular systolic function is normal with, an EF between 55 - 60 %. The RV was not well visualized. The left atrial size is normal. The right atrial size is normal. Lumason used The aortic valve was not well visualized. The mitral valve is normal. Mild mitral regurgitation is present. The tricuspid valve appears structurally normal. Mild tricuspid regurgitation present. Right vent ricular systolic pressure is normal at < 35 mmHg. The pulmonic valve was not well visualized. There is no pulmonic regurgitation present. The aortic root size is normal. Normal inferior vena cava with normal inspiratory collapse consistent with estimated right atrial pre ssure of 5 mmHg. There is a small- moderate generalized pericardial effusion present. CONCLUSIONS -------- 1. This was a technically difficult study with suboptimal views. 2. There is mild concentric left ventricular hypertrophy. 3. Overall left ventricular systolic function is normal with, an EF between 55 - 60 %. 4. The left atrial size is normal. 5. The aortic valve was not well visualized. 6. Mild mitral regurgitation is present. 7. Mild tricuspid regurgitation present. 8. There is a small moderate generalized pericardial effusion present. DONOR SERVICES TECHNICIAN: Sol Barrios RDCS
[2021-03-08 11:57] LABS: Glucose,Whole Blood 142 mg/dL (75-99)
--- NOTE | 2021-03-08 12:53 | P.PN ---
Subjective Progress Note Date: 03/08/21 Principal diagnosis: Acute GI bleed, syncope She is a 60-year-old pleasant male who was admitted to the hospital with acute GI bleed. He had significant amount of bleeding requiring 7 units of PRBC transfusion. 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 He states he last had a dark bowel movement yesterday evening but none since then. He denies any severe abdominal pain, nausea, or vomiting. He was advanced yesterday to a full liquid diet and is tolerating well. Hemoglobin is stable at 8.3. Objective - Vital Signs Vital signs: Vital Signs Temp 97.9 F 03/07/21 20:00 Pulse 75 03/08/21 08:00 Resp 16 03/08/21 08:00 BP 148/78 03/08/21 08:00 Pulse Ox 98 03/08/21 08:00 Intake & Output 03/07/21 03/08/21 03/08/21 18:59 06:59 18:59 Intake Total 2245 480 Output Total 0 Balance 195 480 Weight 91 kg Intake: IV 225 Sodium Chloride 0.9% 1, 225 000 ml @ 75 mls/hr IV . [id number] [facility] Rx#:[id number] Intake, IV Titration 700 Amount Magnesium Sulfate-D5w Pmx 100 1 gm In Dextrose/Water 1 100ml.bag @ 100 mls/hr IVPB Q1H [facility] Rx#: [id number] Sodium Chloride 0.9% 1, 600 000 ml @ 75 mls/hr IV . [id number] [facility] Rx#:[id number] Oral 1320 480 Output: Urine 2049 Other: Voiding Method Urinal Urinal # Voids 1 - Exam General appearance: The patient is alert, oriented, appears in no acute distress. HET: Head is normocephalic and atraumatic. Conjunctiva pink. Sclera anicteric. Neck: Supple without lymphadenopathy. Abdomen: Soft, epigastric tenderness nondistended with bowel sounds. No guarding or rigidity. Extremities: Normal skin color and turgor. No pedal edema Skin: No rashes, no jaundice Neurological: No focal deficits. Alert and oriented 3. - Labs CBC & Chem 7: 03/08/21 06:44 03/08/21 06:44 Labs: Abnormal Lab Results - Last 24 Hours (Table) 03/08/21 03/08/21 03/08/21 Range/Units 06:11 06:44 06:44 RBC 2.62 L (4.30-5.90) m/uL Hgb 8.3 L (13.0-17.5) gm/dL Hct 24.5 L (39.0-53.0) % RDW 18.1 H (11.5-15.5) % Chloride 112 H (98-107) mmol/L BUN 8 L (9-20) mg/dL Creatinine 0.57 L (0.66-1.25) mg/dL Glucose 124 H (74-99) mg/dL POC Glucose (mg/dL) 144 H (75-99) mg/dL Calcium 7.6 L (8.4-10.2) mg/dL Assessment and Plan (1) GI bleed Narrative/Plan: This is a pleasant 60-year-old male who presented to the emergency department after feeling dizzy and he got up to go to the bathroom and subsequently passed out and fell. He states he had a dark stool the day before and was not feeling well, states he was just feeling "off". He states he has a history in June 2020 where he had a similar episode and he fell which at that time states he fractured his back and neck as well as lost his front teeth, he was found to be anemic at that time and underwent an upper endoscopy while she was in the [facility]. He states he was told he had an ulcer. He has not had any follow-up since then. He also states he is not on any NSAIDs, anticoagulation, and not on any proton pump inhibitors. He was noted to have a hemoglobin is 7.6 on admission and given 1 unit of PRBC transfusion. He also had another black tarry stool while he was in the emergency room. Likely dealing with peptic ulcer disease, however have to consider AVM, gastritis or esophagitis. Also need to consider lower GI bleed as a possibility. A shunt is status post upper endoscopy with a visible vessel with active bleeding noted in the duodenal bulb suggestive of a Dieulafoy lesion status post epinephrine injection and Endo Clip placement with good hemostasis, and a small hiatal hernia. Current Visit: Yes Status: Acute Code(s): K92.2 - GASTROINTESTINAL HEMORRHAGE, UNSPECIFIED SNOMED Code(s): 27468317 (2) Syncope and collapse Current Visit: Yes Status: Acute Code(s): R55 - SYNCOPE AND COLLAPSE SNOMED Code(s): 262986160 Plan: 1. Continue symptomatic supportive care 2. Advance to regular diet 3. Repeat daily CBC 4. Continue Protonix 40 mg IV twice a day 5. Patient is cleared by gastro-enterology to be discharged home, discussed with patient follow-up appointment in 1-2 weeks. Thank you for this consultation, we will continue to follow Dr. Brittany Lawler I agree with the dictator's note, documented as a scribe by Radha Barker.
--- NOTE | 2021-03-08 12:55 | P.PN ---
Subjective Progress Note Date: 03/08/21 This is a 58-year-old male patient was hospitalized GI bleeding. The patient had severe anemia secondary to a upper GI bleed as the patient underwent an EGD and the patient was found to have a visible vessel from the duodenum and the vessel was injected with epinephrine and Endo Clip was applied with adequate hemostasis this EGD was done on 03/05/2021. During the course of the treatment, the patient required pectoralis transfusion and the condition was stabilized. The patient remains on IV fluids normal state rate of 75 cc/ hour. He was allowed clear liquid Diet yesterday. The patient also has history of previous alcohol use, smoking and hyperlipidemia. He was having black tarry stools and was getting weak and progressively worse and he had a bout of syncope and he presented to us with a hemoglobin of 7.3 and during the course of treatment a the patient received a total of 7 units of packed RBC in addition to IV fluids. Hemoglobin for yesterday was 8.0 after he dropped down to as low as 6.5. This morning, the patient's hemoglobin is at 8.1. His platelet counts are up to 106 from yesterday and this is a coagulation profile is all within normal limits. 03/08/2021, the patient is being seen for a follow-up. The patient has no specific complaints. He is advancing his diet. No evidence of any GI bleeding. There is a short follow-up visit been done on this patient following his release from the intensive care unit where the patient was hospitalized and admitted to the ICU for GI bleed. This is a total of 7 units of packed RBC and his hemoglobin for now is stable. The patient's hemoglobin is currently at 8.3. Normal renal function. Is having chronic back pain. He is undergone previous back surgery 2. He was seen in consultation by Dr. Goodman gan. The patient was started on Decadron. Computed tomography scan of the lumbosacral spine was also done. Please refer to the results. Hemodynamically stable. Noticed further difficulties., Comfortable. No chest pain. Correlation profile has been essentially within normal limits. Hemoglobin is stable. Platelet count 152. Objective - Vital Signs Vital signs: Vital Signs Temp 97.9 F 03/07/21 20:00 Pulse 74 03/08/21 12:00 Resp 16 03/08/21 12:00 BP 105/75 03/08/21 12:00 Pulse Ox 100 03/08/21 12:00 Intake & Output 03/07/21 03/08/21 03/08/21 18:59 06:59 18:59 Intake Total 2245 480 600 Output Total 2049 325 Balance 195 480 275 Weight 91 kg Intake: IV 225 Sodium Chloride 0.9% 1, 225 000 ml @ 75 mls/hr IV . [id number] [facility] Rx#:[id number] Intake, IV Titration 700 Amount Magnesium Sulfate-D5w Pmx 100 1 gm In Dextrose/Water 1 100ml.bag @ 100 mls/hr IVPB Q1H [facility] Rx#: [id number] Sodium Chloride 0.9% 1, 600 000 ml @ 75 mls/hr IV . [id number] [facility] Rx#:[id number] Oral 1320 480 600 Output: Urine 2049 325 Other: Voiding Method Urinal Urinal # Voids 1 - Exam GENERAL EXAM: Alert, very pleasant 60-year-old gentleman, on room air, comf ortable in no apparent distress. HEAD: Normocephalic. EYES: Normal reaction of pupils, equal size. NOSE: Clear with pink turbinates. THROAT: No erythema or exudates. NECK: No masses, no JVD. CHEST: No chest wall deformity. LUNGS: Equal air entry with no crackles, wheeze, rhonchi or dullness. CVS: S1 and S2 normal with no audible murmur, regular rhythm. ABDOMEN: No hepatosplenomegaly, normal bowel sounds, no guarding or rigidity. SPINE: No scoliosis or deformity SKIN: No rashes CENTRAL NERVOUS SYSTEM: No focal deficits, tone is normal in all 4 extremities. EXTREMITIES: There is no peripheral edema. No clubbing, no cyanosis. Peripheral pulses are intact. - Labs CBC & Chem 7: 03/08/21 06:44 03/08/21 06:44 Labs: Abnormal Lab Results - Last 24 Hours (Table) 03/08/21 03/08/21 03/08/21 Range/Units 06:11 06:44 06:44 RBC 2.62 L (4.30-5.90) m/uL Hgb 8.3 L (13.0-17.5) gm/dL Hct 24.5 L (39.0-53.0) % RDW 18.1 H (11.5-15.5) % Chloride 112 H (98-107) mmol/L BUN 8 L (9-20) mg/dL Creatinine 0.57 L (0.66-1.25) mg/dL Glucose 124 H (74-99) mg/dL POC Glucose (mg/dL) 144 H (75-99) mg/dL Calcium 7.6 L (8.4-10.2) mg/dL 03/08/21 Range/Units 11:55 RBC (4.30-5.90) m/uL Hgb (13.0-17.5) gm/dL Hct (39.0-53.0) % RDW (11.5-15.5) % Chloride (98-107) mmol/L BUN (9-20) mg/dL Creatinine (0.66-1.25) mg/dL Glucose (74-99) mg/dL POC Glucose (mg/dL) 142 H (75-99) mg/dL Calcium (8.4-10.2) mg/dL Assessment and Plan Plan: 1 Syncope secondary to severe anemia secondary to visible vessel or active bleeding noted of the duodenum bowel suggestive of Dieulafoy lesion, status post injection of epinephrine and Endo Clip placement with good hemostasis per EGD performed today 03/05/2021 2 Severe anemia secondary to above requiring 7 units packed red blood cells so far this admission. Current hemoglobin 8.1 and there has been no evidence of any acute bleeding over the past 24 hours 3 Previous history of alcohol abuse 4 Previous history of GI bleed 5 Chronic and ongoing tobacco dependence 6 Hyperlipidemia 7 chronic back pain and the patient has been maintained on methadone 10 mg every 4 hours on a when necessary basis and the patient is currently receiving Dilaudid 0.5 every 3 hours and Percocet 10/325 every 8 hours on a when necessary basis Plan: Hemodynamically stable No signs of GI bleed Status post epinephrine injection and clipping of a duodenal ulcer Received a total of 7 unit of packed red blood cells hemoglobin monitoring reveals a hemoglobin has been stable e to 75 ML's per hour Diet has been advanced No pulmonary or critical care issue. I will leave the rest of the management up to medicine, GI and spine surgery regarding his chronic back pain. We will sign off the case.
--- NOTE | 2021-03-08 13:55 | P.PN ---
Subjective Progress Note Date: 03/08/21 (delayed charting seen at 0930) Principal diagnosis: syncope, tarry stools Patient is a 60-year-old male with history of prior GI bleed, dyslipidemia, and tobacco abuse who presented to the ER with dark tarry stools and syncopal episode. In the ER he underwent an extensive evaluation. Vital signs stable, hemoglobin 7.6, lactic acid 3, influenza A and COVID testing negative. In the ER he try to get up for x-ray and again became dizzy and had an additional episode of black tarry stool. He was ordered 1 unit of packed red blood cells. He was admitted for further monitoring. GI was consulted and started him on a clear liquid diet and nothing by mouth after midnight. On the floor patient began having hematemesis and became tachycardic and had worsening dizziness. Stat repeat CBC. He also hemoglobin of 5.1. 2 additional units of packed red blood cells were ordered as well as 1 g of calcium gluconate and the patient was transferred to the ICU. His hemoglobin remained low and initial 2 units of packed red blood cells were ordered. He underwent EGD on the morning of 03/05 which demonstrated visible vessel with active bleeding in the duodenal all sugg estive of a Dieulafoy's lesion which was injected with epi and had an endoclip placed with good results. He required additional blood transfusion. his hemoglobin stabilized by the morning of 03/06. He was out of bed on 03/07 and had worsening of his low back pain. CT did not show any acute process. He was seen by spine surgery who recommended steroids, LSO brace, and physical therapy to help with pain. CT abd and pelvis: no acute process Chest x-ray: no acute process Lumbar spine: stable postoperative changes Patient seen and examined at bedside. He does not feel comfortable filling home as he had one bowel movement yesterday that was all liquid and dark. He still continues to have significant back pain and is unable to come off of the IV meds. He has not been moving the chest radiating discussed likely discharge in a.m. as long as his pain is tolerable. General: ill appearing, mild distress secondary to pain, appears at stated age Derm: + Pallor, warm, dry Head: atraumatic, normocephalic, symmetric Eyes: EOMI, no lid lag, anicteric sclera Mouth: no lip lesion, mucus membranes moist Cardiovascular: S1S2 reg, no murmur, positive posterior tibial pulse bilateral, Lungs: Rhonchi right base, no accessory muscle use Abdominal: soft, nontender to palpation, no guarding, no appreciable organomegaly Ext: no gross muscle atrophy, no edema, no contractures Spine: Spinous process tenderness over approximately L3 with some swelling/bogginess to the left Neuro: CN II-XI grossly intact, no focal neuro deficits Psych: Alert, oriented, appropriate affect Upper GI bleed secondary to Dieulafoy's lesion, acute blood loss anemia, -Status post 7 units of packed red blood cells, coagulation studies are normal. - repeat this afternoon and then in AM - GI recs - on PPI Acute on Chronic back pain - conitnue zanaflex, increase Percocet and Dilaudid -Discussed case with Dr. Rothman's and will consult. CT thoracic and lumbar spine without was ordered. Appears to have a fascial strain - PT/OT consult, LSO brace for comfort, trial of steroids, avoid NSAIDs at this time secondary to recent GI bleed Thrombocytopenia - follow CBC - no indication for transfusion Probable syncope, fall - due to acute blood loss - check orthostatic once feeling like he is able to stand - check echo - Tele Tobacco abuse - cessation - nicotine replacement if needed Depression - Paxil Hypokalemia, resolved DVT prophylaxis: SCDs Discussed with: patient, nursing Anticipated discharge: 3-[address]: home A total of 35 minutes was spent on the care of this complex patient more than 50% of the time was spent in counseling and care coordination. Objective - Vital Signs Vital signs: Vital Signs Temp 97.9 F 03/07/21 20:00 Pulse 74 03/08/21 12:00 Resp 16 03/08/21 12:00 BP 105/75 03/08/21 12:00 Pulse Ox 100 03/08/21 12:00 Intake & Output 03/07/21 03/08/21 03/08/21 18:59 06:59 18:59 Intake Total 2245 480 1080 Output Total 0 325 Balance 195 480 755 Weight 91 kg Intake: IV 225 Sodium Chloride 0.9% 1, 225 000 ml @ 75 mls/hr IV . [id number] [facility] Rx#:[id number] Intake, IV Titration 700 Amount Magnesium Sulfate-D5w Pmx 100 1 gm In Dextrose/Water 1 100ml.bag @ 100 mls/hr IVPB Q1H [facility] Rx#: [id number] Sodium Chloride 0.9% 1, 600 000 ml @ 75 mls/hr IV . [id number] [facility] Rx#:[id number] Oral 2599 302 4339 Output: Urine 2050 325 Other: Voiding Method Urinal Urinal # Voids 1 - Labs CBC & Chem 7: 03/08/21 06:44 03/08/21 06:44 Labs: Abnormal Lab Results - Last 24 Hours (Table) 03/08/21 03/08/21 03/08/21 Range/Units 06:11 06:44 06:44 RBC 2.62 L (4.30-5.90) m/uL Hgb 8.3 L (13.0-17.5) gm/dL Hct 24.5 L (39.0-53.0) % RDW 18.1 H (11.5-15.5) % Chloride 112 H (98-107) mmol/L BUN 8 L (9-20) mg/dL Creatinine 0.57 L (0.66-1.25) mg/dL Glucose 124 H (74-99) mg/dL POC Glucose (mg/dL) 144 H (75-99) mg/dL Calcium 7.6 L (8.4-10.2) mg/dL 03/08/21 Range/Units 11:55 RBC (4.30-5.90) m/uL Hgb (13.0-17.5) gm/dL Hct (39.0-53.0) % RDW (11.5-15.5) % Chloride (98-107) mmol/L BUN (9-20) mg/dL Creatinine (0.66-1.25) mg/dL Glucose (74-99) mg/dL POC Glucose (mg/dL) 142 H (75-99) mg/dL Calcium (8.4-10.2) mg/dL
[2021-03-08] MEDS: SODIUM CHLORIDE 0.9% 1,000 ML IV SCH (15:16)
[2021-03-08 16:32] LABS: Glucose,Whole Blood 151 mg/dL (75-99)
--- NOTE | 2021-03-08 17:31 | P.PN ---
Subjective Progress Note Date: 03/08/21 Principal diagnosis: low back pain; bilateral LE pain Upon entering room, patient was lying semirecumbent in bed. Patient says he is doing better today as far as pain goes. He said he was up into the bathroom. He said he worked with physical therapy and they said he did a good job. He just says after he is walking a lot he has pain. He says he does get a monthly epidural shot, and epidural he thinks is due to next week. He says he was able to eat lunch this afternoon. He has not had a bowel movement since yesterday. Pulses are intact bilaterally in lower extremities dorsalis pedis pulse. Patient still has pain when lifting both legs off bed. Patient does say he has an LSO brace at home that he has previously used. Objective - Vital Signs Vital signs: Vital Signs Temp 97.9 F 03/07/21 20:00 Pulse 74 03/08/21 12:00 Resp 16 03/08/21 12:00 BP 105/75 03/08/21 12:00 Pulse Ox 100 03/08/21 12:00 Intake & Output 03/07/21 03/08/21 03/08/21 18:59 06:59 18:59 Intake Total 2245 480 1080 Output Total 2050 325 Balance 195 480 755 Weight 91 kg Intake: IV 225 Sodium Chloride 0.9% 1, 225 000 ml @ 75 mls/hr IV . [id number] [facility] Rx#:[id number] Intake, IV Titration 700 Amount Magnesium Sulfate-D5w Pmx 100 1 gm In Dextrose/Water 1 100ml.bag @ 100 mls/hr IVPB Q1H [facility] Rx#: [id number] Sodium Chloride 0.9% 1, 600 000 ml @ 75 mls/hr IV . [id number] [facility] Rx#:[id number] Oral 1752 814 9732 Output: Urine 2050 325 Other: Voiding Method Urinal Urinal # Voids 1 - Exam Negative Homans sign bilaterally. Negative clonus bilaterally while dorsiflexing the feet. Pulses are intact bilaterally via dorsalis pedis pulses. Upon passive range of motion of both lower extremities patient has pain during flexion of hip pain is both in lower back and radiates down legs. Patient rounding machine tender to left and right lower back areas more so on the left side lateral to midline - Labs CBC & Chem 7: 03/08/21 06:44 03/08/21 06:44 Labs: Abnormal Lab Results - Last 24 Hours (Table) 03/08/21 03/08/21 03/08/21 Range/Units 06:11 06:44 06:44 RBC 2.62 L (4.30-5.90) m/uL Hgb 8.3 L (13.0-17.5) gm/dL Hct 24.5 L (39.0-53.0) % RDW 18.1 H (11.5-15.5) % Chloride 112 H (98-107) mmol/L BUN 8 L (9-20) mg/dL Creatinine 0.57 L (0.66-1.25) mg/dL Glucose 124 H (74-99) mg/dL POC Glucose (mg/dL) 144 H (75-99) mg/dL Calcium 7.6 L (8.4-10.2) mg/dL 03/08/21 Range/Units 11:55 RBC (4.30-5.90) m/uL Hgb (13.0-17.5) gm/dL Hct (39.0-53.0) % RDW (11.5-15.5) % Chloride (98-107) mmol/L BUN (9-20) mg/dL Creatinine (0.66-1.25) mg/dL Glucose (74-99) mg/dL POC Glucose (mg/dL) 142 H (75-99) mg/dL Calcium (8.4-10.2) mg/dL Assessment and Plan Plan: 1. Low back pain s/p ffs 2. s/p L3-S1 PSIF and IBF 3. LE radiculopathy, chronic 4. GI bleed, with ABLA Symptom Control: -Pain control: . Continue Decadron for every 4 IV, Flexeril 10 by mouth 3 times a day when necessary spasm Activity: -Aggressive ambulation protocol. OOB with all meals. OOB or in chair 4-5x daily. -PT/OT LSO brace for support - patient says he has one at home Prophylaxis: -TEDs, SCDs, mechanical ppx. OK for heparin today. Early ambulation is best. -GI ppx. Imaging/labs: -CT and x-rays reviewed C reports -Trend labs as appropriate Intervention: LSO - patient says he hasn't LSO brace at home. Pain management PT OT Time with Patient: Less than 30
[2021-03-08 20:14] LABS: Glucose,Whole Blood 155 mg/dL (75-99)
[2021-03-08] MEDS: ATORVASTATIN 40 MG TAB PO SCH (20:17)
[2021-03-09] MEDS: HYDROmorphone 1 MG/ML 1 ML SYRINGE IVP PRN ×6 (03:03→23:20)
[2021-03-09] MEDS: SODIUM CHLORIDE 0.9% 1,000 ML IV SCH (05:02)
[2021-03-09] MEDS: DEXAMETHASONE SOD PHOSPHATE 4 MG/ML 1 ML VIAL IV SCH ×4 (06:06→23:17)
[2021-03-09] MEDS: oxyCODONE-APAP 10-325MG 1 EACH TAB PO PRN ×2 (06:06→14:02)
[2021-03-09 06:21] LABS: Glucose,Whole Blood 141 mg/dL (75-99)
[2021-03-09 07:39] LABS: Anisocytosis Slight; Basophils % (A) 0 %; Eosinophils # (A) 0.1 k/uL (0-0.7); Eosinophils % (A) 1 %; HCT 25.9 % (39.0-53.0); HGB 8.8 gm/dL (13.0-17.5); Lymphocytes # (A) 1.1 k/uL (1.0-4.8); Lymphocytes % (A) 7 %; MCHC 34.2 g/dL (31.0-37.0); MCV 93.8 fL (80.0-100.0); Macrocytosis Slight; Mean Platelet Volume 8.4; Monocytes # (A) 0.8 k/uL (0-1.0); Monocytes % (A) 5 %; Neutrophils % (A) 87 %; Platelet Count 185 k/uL (150-450); RBC 2.76 m/uL (4.30-5.90); RDW 19.4 % (11.5-15.5); WBC 16.1 k/uL (3.8-10.6)
[2021-03-09 07:44] LABS: African American GFR (CKD) >90 (>60 ml/min/1.73 sqM); Anion Gap 3 mmol/L; Blood Urea Nitrogen 12 mg/dL (9-20); Calcium 8.2 mg/dL (8.4-10.2); Carbon Dioxide 25 mmol/L (22-30); Chloride 112 mmol/L (98-107); Glucose 117 mg/dL (74-99); Non-African American GFR(CKD) >90 (>60 ml/min/1.73 sqM); Sodium 140 mmol/L (137-145)
--- NOTE | 2021-03-09 08:12 | P.PN ---
Subjective Progress Note Date: 03/09/21 Patient seen and examined sitting up in bed eating breakfast states he feels somewhat better still having some back pain was getting better. Patient states that he has a LSO at home and that he is to use that. Patient states he would like to follow-up with his surgeon he denies any perineal numbness or tingling denies any fevers chills shortness of breath or chest pain denies any bowel or bladder incontinence Objective - Vital Signs Vital signs: Vital Signs Temp 97.4 F L 03/09/21 08:09 Pulse 73 03/09/21 08:09 Resp 16 03/09/21 08:09 BP 107/61 03/09/21 08:09 Pulse Ox 96 03/09/21 08:09 Intake & Output 03/08/21 03/09/21 03/09/21 18:59 06:59 18:59 Intake Total 1320 525 Output Total 1100 600 Balance 220 -75 Weight 92.2 kg Intake: Intake, IV Titration 525 Amount Sodium Chloride 0.9% 1, 525 000 ml @ 75 mls/hr IV . [id number] [facility] Rx#:[id number] Oral 1320 Output: Urine 1100 600 Other: Voiding Method Urinal # Voids 1 - Exam Exam is stable today. The patient has some tenderness to palpation of the left lower back region and right lower back region however no changes from previous. He has good strength in his upper extremity's and lower extremity is bilaterally with no changes in his sensation is intact to light touch and he is neurovascularly intact distally - Labs CBC & Chem 7: 03/09/21 06:47 03/09/21 06:47 Labs: Abnormal Lab Results - Last 24 Hours (Table) 03/08/21 03/08/21 03/08/21 Range/Units 06:44 11:55 16:30 WBC (3.8-10.6) k/uL RBC (4.30-5.90) m/uL Hgb (13.0-17.5) gm/dL Hct (39.0-53.0) % RDW (11.5-15.5) % Neutrophils # (1.3-7.7) k/uL Chloride 112 H (98-107) mmol/L BUN 8 L (9-20) mg/dL Creatinine 0.57 L (0.66-1.25) mg/dL Glucose 124 H (74-99) mg/dL POC Glucose (mg/dL) 142 H 151 H (75-99) mg/dL Calcium 7.6 L (8.4-10.2) mg/dL 03/08/21 03/09/21 03/09/21 Range/Units 20:13 06:19 06:47 WBC 16.1 H (3.8-10.6) k/uL RBC 2.76 L (4.30-5.90) m/uL Hgb 8.8 L (13.0-17.5) gm/dL Hct 25.9 L (39.0-53.0) % RDW 19.4 H (11.5-15.5) % Neutrophils # 14.0 H (1.3-7.7) k/uL Chloride (98-107) mmol/L BUN (9-20) mg/dL Creatinine (0.66-1.25) mg/dL Glucose (74-99) mg/dL POC Glucose (mg/dL) 155 H 141 H (75-99) mg/dL Calcium (8.4-10.2) mg/dL 03/09/21 Range/Units 06:47 WBC (3.8-10.6) k/uL RBC (4.30-5.90) m/uL Hgb (13.0-17.5) gm/dL Hct (39.0-53.0) % RDW (11.5-15.5) % Neutrophils # (1.3-7.7) k/uL Chloride 112 H (98-107) mmol/L BUN (9-20) mg/dL Creatinine 0.61 L (0.66-1.25) mg/dL Glucose 117 H (74-99) mg/dL POC Glucose (mg/dL) (75-99) mg/dL Calcium 8.2 L (8.4-10.2) mg/dL Assessment and Plan Assessment: 1. Low back pain s/p ffs 2. s/p L3-S1 PSIF and IBF 3. LE radiculopathy, chronic 4. GI bleed, with ABLA Plan: -Appreciate medicine management. Symptom Control: -Pain control: . Recommend adding Decadron for every 4 IV, Flexeril 10 by mouth 3 times a day when necessary spasm Activity: -Aggressive ambulation protocol. OOB with all meals. OOB or in chair 4-5x daily. -PT/OT LSO brace for support Prophylaxis: -TEDs, SCDs, mechanical ppx. OK for heparin today. Early ambulation is best. -GI ppx. Imaging/labs: -No new imaging needed -Trend labs as appropriate Intervention: LSO-patient has one at home Pain management PT OT Dispo: Stable from an orthopedic spine standpoint
[2021-03-09] MEDS: tiZANidine 4 MG TAB PO SCH ×2 (08:17→20:54)
[2021-03-09] MEDS: PANTOPRAZOLE 40 MG/10 ML VIAL IV SCH ×2 (08:17→20:54)
[2021-03-09] MEDS: PARoxetine 20 MG TAB PO SCH (08:17)
[2021-03-09] MEDS: CYCLOBENZAPRINE 10 MG TAB PO PRN ×2 (08:17→14:04)
[2021-03-09] MEDS ORDERED: bisacodyL 5 MG TABLET.DR PO STA (10:22)
--- NOTE | 2021-03-09 10:46 | P.PN ---
Subjective Progress Note Date: 03/09/21 Principal diagnosis: Acute GI bleed, syncope She is a 60-year-old pleasant male who was admitted to the hospital with acute GI bleed. He had significant amount of bleeding requiring 7 units of PRBC transfusion. 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 The patient states he's not had a bowel movement in 2 days and feels slightly constipated and concerned. He then had a bowel movement status post EGD. He states he has some nausea after eating. He has not been up ambulating much other than to the restroom or the chair. He denies any vomiting, abdominal pain, or rectal bleeding. He has had no hematemesis or coffee-ground emesis. He states he does have some dizziness still with getting up. Today's hemoglobin improved to 8.8. Objective - Vital Signs Vital signs: Vital Signs Temp 97.4 F L 03/09/21 08:09 Pulse 73 03/09/21 08:09 Resp 16 03/09/21 08:09 BP 107/61 03/09/21 08:09 Pulse Ox 96 03/09/21 08:09 Intake & Output 03/08/21 03/09/21 03/09/21 18:59 06:59 18:59 Intake Total 1320 525 480 Output Total 1100 600 Balance 220 -75 480 Weight 92.2 kg Intake: Intake, IV Titration 525 Amount Sodium Chloride 0.9% 1, 525 000 ml @ 75 mls/hr IV . [id number] [facility] Rx#:[id number] Oral 1320 480 Output: Urine 1100 600 Other: Voiding Method Urinal # Voids 1 - Exam General appearance: The patient is alert, oriented, appears in no acute distress. HET: Head is normocephalic and atraumatic. Conjunctiva pink. Sclera anicteric. Neck: Supple without lymphadenopathy. Abdomen: Soft, mild epigastric tenderness nondistended with bowel sounds. No guarding or rigidity. Extremities: Normal skin color and turgor. No pedal edema Skin: No rashes, no jaundice Neurological: No focal deficits. Alert and oriented 3. - Labs CBC & Chem 7: 03/09/21 06:47 03/09/21 06:47 Labs: Abnormal Lab Results - Last 24 Hours (Table) 03/08/21 03/08/21 03/08/21 Range/Units 11:55 16:30 20:13 WBC (3.8-10.6) k/uL RBC (4.30-5.90) m/uL Hgb (13.0-17.5) gm/dL Hct (39.0-53.0) % RDW (11.5-15.5) % Neutrophils # (1.3-7.7) k/uL Chloride (98-107) mmol/L Creatinine (0.66-1.25) mg/dL Glucose (74-99) mg/dL POC Glucose (mg/dL) 142 H 151 H 155 H (75-99) mg/dL Calcium (8.4-10.2) mg/dL 03/09/21 03/09/21 03/09/21 Range/Units 06:19 06:47 06:47 WBC 16.1 H (3.8-10.6) k/uL RBC 2.76 L (4.30-5.90) m/uL Hgb 8.8 L (13.0-17.5) gm/dL Hct 25.9 L (39.0-53.0) % RDW 19.4 H (11.5-15.5) % Neutrophils # 14.0 H (1.3-7.7) k/uL Chloride 112 H (98-107) mmol/L Creatinine 0.61 L (0.66-1.25) mg/dL Glucose 117 H (74-99) mg/dL POC Glucose (mg/dL) 141 H (75-99) mg/dL Calcium 8.2 L (8.4-10.2) mg/dL Assessment and Plan (1) GI bleed Narrative/Plan: This is a pleasant 60-year-old male who presented to the emergency department after feeling dizzy and he got up to go to the bathroom and subsequently passed out and fell. He states he had a dark stool the day before and was not feeling well, states he was just feeling "off". He states he has a history in June 2020 where he had a similar episode and he fell which at that time states he fractured his back and neck as well as lost his front teeth, he was found to be anemic at that time and underwent an upper endoscopy while she was in the [facility]. He states he was told he had an ulcer. He has not had any follow-up since then. He also states he is not on any NSAIDs, anticoagulation, and not on any proton pump inhibitors. He is status post 7 units of PRBC transfusion this admission. He is status post upper endoscopy with a visible vessel with active bleeding noted in the duodenal bulb suggestive of a Dieulafoy lesion status post epinephrine injection and Endo Clip placement with good hemostasis, and a small hiatal hernia. Current Visit: Yes Status: Acute Code(s): K92.2 - GASTROINTESTINAL HEMORRHAGE, UNSPECIFIED SNOMED Code(s): 75769960 (2) Syncope and collapse Current Visit: Yes Status: Acute Code(s): R55 - SYNCOPE AND COLLAPSE SNOMED Code(s): 688260632 Plan: 1. Continue symptomatic and supportive care 2. Continue Regular diet 3. Repeat daily CBC 4. Continue Protonix 40 mg twice daily 5. Start iron by mouth daily 6. Patient is cleared by gastro-enterology to be discharged home, discussed with patient follow-up appointment in 1-2 weeks. Thank you for this consultation, we will continue to follow Dr. Brittany Lawler I agree with the dictator's note, documented as a scribe by Radha Barker.
[2021-03-09 12:05] LABS: Glucose,Whole Blood 140 mg/dL (75-99)
[2021-03-09] MEDS ORDERED: polyethylene glycoL 3350 17 GM POWD.PACK PO STA (16:06)
[2021-03-09 16:45] LABS: Glucose,Whole Blood 144 mg/dL (75-99)
--- NOTE | 2021-03-09 17:26 | P.PN ---
Subjective Progress Note Date: 03/09/21 (delayed charting seen at 1530) Principal diagnosis: syncope, tarry stools Patient is a 60-year-old male with history of prior GI bleed, dyslipidemia, and tobacco abuse who presented to the ER with dark tarry stools and syncopal episode. In the ER he underwent an extensive evaluation. Vital signs stable, hemoglobin 7.6, lactic acid 3, influenza A and COVID testing negative. In the ER he try to get up for x-ray and again became dizzy and had an additional episode of black tarry stool. He was ordered 1 unit of packed red blood cells. He was admitted for further monitoring. GI was consulted and started him on a clear liquid diet and nothing by mouth after midnight. On the floor patient began having hematemesis and became tachycardic and had worsening dizziness. Stat repeat CBC. He also hemoglobin of 5.1. 2 additional units of packed red blood cells were ordered as well as 1 g of calcium gluconate and the patient was transferred to the ICU. His hemoglobin remained low and initial 2 units of packed red blood cells were ordered. He underwent EGD on the morning of 03/05 which demonstrated visible vessel with active bleeding in the duodenal all sugg estive of a Dieulafoy's lesion which was injected with epi and had an endoclip placed with good results. He required additional blood transfusion. his hemoglobin stabilized by the morning of 03/06. He was out of bed on 03/07 and had worsening of his low back pain. CT did not show any acute process. He was seen by spine surgery who recommended steroids, LSO brace, and physical therapy to help with pain. His pain began to slowly improve. CT abd and pelvis: no acute process Chest x-ray: no acute process Lumbar spine: stable postoperative changes Patient seen and examined at bedside. He continues to have not had a bowel movement. He tolerated his diet fine. He states his back is slowly improving. No nausea or vomiting. General: Nontoxic, no distress appears at stated age Derm: warm, dry Head: atraumatic, normocephalic, symmetric Eyes: EOMI, no lid lag, anicteric sclera Mouth: no lip lesion, mucus membranes moist Cardiovascular: S1S2 reg, no murmur, positive posterior tibial pulse bilateral, Lungs: Rhonchi bilateral, no accessory muscle use Abdominal: soft, nontender to palpation, no guarding, no appreciable organomegaly Ext: no gross muscle atrophy, no edema, no contractures Neuro: CN II-XI grossly intact, no focal neuro deficits Psych: Alert, oriented, appropriate affect Upper GI bleed secondary to Dieulafoy's lesion, acute blood loss anemia, -Status post 7 units of packed red blood cells, coagulation studies are normal. - Follow CBC - GI recs - on PPI Acute on Chronic back pain - conitnue zanaflex, Percocet, Dilaudid, flexaril - ortho spine recs - IV decadron to methypred in AM Probable syncope, fall - due to acute blood loss - check orthostatic once feeling like he is able to stand - Echo with EF 55-60%, no significant valvular dysfunction - Tele Tobacco abuse - cessation - nicotine replacement if needed Depression - Paxil Hypokalemia, resolved Thrombocytopenia, resolved DVT prophylaxis: SCDs Discussed with: patient, nursing Anticipated discharge: in AM Anticipated discharge place: home A total of 25 minutes was spent on the care of this complex patient more than 50% of the time was spent in counseling and care coordination. Objective - Vital Signs Vital signs: Vital Signs Temp 98.1 F 03/09/21 16:43 Pulse 68 03/09/21 16:43 Resp 16 03/09/21 16:43 BP 115/75 03/09/21 16:43 Pulse Ox 97 03/09/21 16:43 Intake & Output 03/08/21 03/09/21 03/09/21 18:59 06:59 18:59 Intake Total 0240 732 5896 Output Total 1100 600 400 Balance 220 -75 1040 Weight 92.2 kg Intake: Intake, IV Titration 525 Amount Sodium Chloride 0.9% 1, 525 000 ml @ 75 mls/hr IV . [id number] [facility] Rx#:[id number] Oral 1320 1440 Output: Urine 1100 600 400 Other: Voiding Method Urinal Urinal # Voids 1 2 - Labs CBC & Chem 7: 03/09/21 06:47 03/09/21 06:47 Labs: Abnormal Lab Results - Last 24 Hours (Table) 03/08/21 03/09/21 03/09/21 Range/Units 20:13 06:19 06:47 WBC 16.1 H (3.8-10.6) k/uL RBC 2.76 L (4.30-5.90) m/uL Hgb 8.8 L (13.0-17.5) gm/dL Hct 25.9 L (39.0-53.0) % RDW 19.4 H (11.5-15.5) % Neutrophils # 14.0 H (1.3-7.7) k/uL Chloride (98-107) mmol/L Creatinine (0.66-1.25) mg/dL Glucose (74-99) mg/dL POC Glucose (mg/dL) 155 H 141 H (75-99) mg/dL Calcium (8.4-10.2) mg/dL 03/09/21 03/09/21 03/09/21 Range/Units 06:47 12:04 16:44 WBC (3.8-10.6) k/uL RBC (4.30-5.90) m/uL Hgb (13.0-17.5) gm/dL Hct (39.0-53.0) % RDW (11.5-15.5) % Neutrophils # (1.3-7.7) k/uL Chloride 112 H (98-107) mmol/L Creatinine 0.61 L (0.66-1.25) mg/dL Glucose 117 H (74-99) mg/dL POC Glucose (mg/dL) 140 H 144 H (75-99) mg/dL Calcium 8.2 L (8.4-10.2) mg/dL
[2021-03-09 20:09] LABS: Glucose,Whole Blood 186 mg/dL (75-99)
[2021-03-09] MEDS: ATORVASTATIN 40 MG TAB PO SCH (20:55)
[2021-03-09] MEDS: INSULIN ASPART (NovoLOG) 100 UNIT/ML VIAL SQ SCH (20:55)
[2021-03-10] MEDS: oxyCODONE-APAP 10-325MG 1 EACH TAB PO PRN ×2 (01:59→11:18)
[2021-03-10] MEDS: HYDROmorphone 1 MG/ML 1 ML SYRINGE IVP PRN ×6 (04:44→23:39)
[2021-03-10 06:10] LABS: Glucose,Whole Blood 129 mg/dL (75-99)
[2021-03-10] MEDS: INSULIN ASPART (NovoLOG) 100 UNIT/ML VIAL SQ SCH ×4 (06:21→20:37)
[2021-03-10] MEDS: DEXAMETHASONE SOD PHOSPHATE 4 MG/ML 1 ML VIAL IV SCH (06:42)
[2021-03-10 07:43] LABS: Anisocytosis Slight; HCT 25.8 % (39.0-53.0); HGB 8.7 gm/dL (13.0-17.5); Hypochromasia Slight; MCH 32.1 pg (25.0-35.0); MCHC 33.6 g/dL (31.0-37.0); MCV 95.4 fL (80.0-100.0); Macrocytosis Slight; Mean Platelet Volume 7.6; Platelet Count 203 k/uL (150-450); RDW 19.6 % (11.5-15.5); WBC 16.1 k/uL (3.8-10.6)
[2021-03-10] MEDS: PANTOPRAZOLE 40 MG/10 ML VIAL IV SCH (09:23)
[2021-03-10] MEDS: PARoxetine 20 MG TAB PO SCH (09:24)
[2021-03-10] MEDS: tiZANidine 4 MG TAB PO SCH ×2 (09:24→20:49)
--- NOTE | 2021-03-10 11:01 | P.PN ---
Subjective Progress Note Date: 03/10/21 Principal diagnosis: Acute GI bleed, syncope She is a 60-year-old pleasant male who was admitted to the hospital with acute GI bleed. He had significant amount of bleeding requiring 7 units of PRBC transfusion. 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 The patient was seen and examined sitting up in bed. He states he's feeling better today. Denies any further dizziness or syncope. He states he had a bowel movement and 3:30 in the morning which he states was start. He had some mild nausea as well however no vomiting. Hemoglobin is stable at 8.7. Plan is for discharge home today, patient will remain on Protonix 40 mg twice a day. Objective - Vital Signs Vital signs: Vital Signs Temp 98.4 F 03/10/21 03:47 Pulse 80 03/10/21 03:47 Resp 16 03/10/21 03:47 BP 128/68 03/10/21 03:47 Pulse Ox 96 03/10/21 03:47 Intake & Output 03/09/21 03/10/21 03/10/21 18:59 06:59 18:59 Intake Total 1440 Output Total 400 600 Balance 1040 -600 Weight 93.2 kg Intake: Oral 1440 Output: Urine 400 600 Other: Voiding Method Urinal Urinal # Voids 2 1 - Exam General appearance: The patient is alert, oriented, appears in no acute distress. HET: Head is normocephalic and atraumatic. Conjunctiva pink. Sclera anicteric. Neck: Supple without lymphadenopathy. Abdomen: Soft, mild diffuse tenderness, nondistended with bowel sounds. No guarding or rigidity. Extremities: Normal skin color and turgor. No pedal edema Skin: No rashes, no jaundice Neurological: No focal deficits. Alert and oriented 3. - Labs CBC & Chem 7: 03/10/21 06:49 03/09/21 06:47 Labs: Abnormal Lab Results - Last 24 Hours (Table) 03/09/21 03/09/21 03/09/21 Range/Units 12:04 16:44 20:08 WBC (3.8-10.6) k/uL RBC (4.30-5.90) m/uL Hgb (13.0-17.5) gm/dL Hct (39.0-53.0) % RDW (11.5-15.5) % POC Glucose (mg/dL) 140 H 144 H 186 H (75-99) mg/dL 03/10/21 03/10/21 Range/Units 06:08 06:49 WBC 16.1 H (3.8-10.6) k/uL RBC 2.70 L (4.30-5.90) m/uL Hgb 8.7 L (13.0-17.5) gm/dL Hct 25.8 L (39.0-53.0) % RDW 19.6 H (11.5-15.5) % POC Glucose (mg/dL) 129 H (75-99) mg/dL Assessment and Plan (1) GI bleed Narrative/Plan: This is a pleasant 60-year-old male who presented to the emergency department after feeling dizzy and he got up to go to the bathroom and subsequently passed out and fell. He states he had a dark stool the day before and was not feeling well, states he was just feeling "off". He states he has a history in June 2020 where he had a similar episode and he fell which at that time states he fractured his back and neck as well as lost his front teeth, he was found to be anemic at that time and underwent an upper endoscopy while she was in the [facility]. He states he was told he had an ulcer. He has not had any follow-up since then. He also states he is not on any NSAIDs, anticoagulation, and not on any proton pump inhibitors. He is status post 7 units of PRBC transfusion this admission. He is status post upper endoscopy with a visible vessel with active bleeding noted in the duodenal bulb suggestive of a Dieulafoy lesion status post epinephrine injection and Endo Clip placement with good hemostasis, and a small hiatal hernia. Current Visit: Yes Status: Acute Code(s): K92.2 - GASTROINTESTINAL HEMORRHAGE, UNSPECIFIED SNOMED Code(s): 34892877 (2) Syncope and collapse Current Visit: Yes Status: Acute Code(s): R55 - SYNCOPE AND COLLAPSE SNOMED Code(s): 779604838 Plan: 1. Continue symptomatic and supportive care 2. Continue Regular diet 3. Repeat daily CBC 4. Continue Protonix 40 mg twice daily 5. Start iron by mouth daily 6. Patient is cleared by gastro-enterology to be discharged home, discussed with patient follow-up appointment in 1-2 weeks. Thank you for this consultation, we will sign off at this time Dr. Brittayn Lawler I agree with the dictator's note, documented as a scribe by Radha Barker.
[2021-03-10] MEDS: polyethylene glycoL 3350 17 GM POWD.PACK PO SCH (11:18)
[2021-03-10] MEDS: FERROUS SULFATE 325 MG TAB PO SCH ×2 (11:19→17:08)
[2021-03-10 11:48] LABS: Glucose,Whole Blood 141 mg/dL (75-99)
[2021-03-10 13:23] VITALS: BMI 26.4
--- NOTE | 2021-03-10 14:04 | US ---
EXAMINATION TYPE: US carotid duplex BILAT DATE OF EXAM: 03/10/2021 COMPARISON: NONE CLINICAL HISTORY: dizziness. Syncope. EXAM MEASUREMENTS: RIGHT: Peak Systolic Velocity (PSV) cm/sec ----- Right CCA: 96.8 ----- Right ICA: 60.3 ----- Right ECA: 137.2 ICA/CCA ratio: 0.6 RIGHT: End Diastole cm/sec ----- Right CCA: 16.9 ----- Right ICA: 15.3 ----- Right ECA: 15.0 LEFT: Peak Systolic Velocity (PSV) cm/sec ----- Left CCA: 93.0 ----- Left ICA: 80.2 ----- Left ECA: 101.8 ICA/CCA ratio: 0.9 LEFT: End Diastole cm/sec ----- Left CCA: 20.2 ----- Left ICA: 18.0 ----- Left ECA: 10.7 VERTEBRALS (direction of flow): Right Vertebral: Antegrade Left Vertebral: Antegrade Rhythm: Normal manzo scale images show mild to moderate peripheral plaque at bilateral carotid bulb level left greate r than right but the velocity measurements and ratios remain within normal limits bilaterally IMPRESSION: [id number] atherosclerotic changes bilaterally left greater than right without h emodynamically significant stenosis seen in either internal carotid artery. Criteria for Assigning % of Stenosis / Diameter reduction (Estimation based on the indirect measurements of the internal carotid artery velocities (ICA PSV). 1. Normal (no stenosis)=ICA PSV < 125 cm/s: ratio < 2.0: ICA EDV<40 cm/s. 2. Less than 50% stenosis=ICA PSV < 125 cm/s: ratio < 2.0: ICA EDV<40 cm/s. 3. 50 to 69% stenosis=ICA PSV of 125 to 230 cm/s: ration 2.0 ? 4.0: ICA EDV 40-100 cm/s. 4. Greater than 70% stenosis to near occlusion= ICA PSV > 230 cm/s: ratio > 4.0: ICA EDV > 100 cm/s. 5. Near occlusion= ICA PSV velocities may be low or undetectable: variable ratio and ICA EDV. 6. Total occlusion=unable to detect flow.
--- NOTE | 2021-03-10 15:39 | P.PN ---
Subjective Progress Note Date: 03/10/21 (Delayed charting seen at 10:30) Principal diagnosis: syncope, tarry stools Patient is a 60-year-old male with history of prior GI bleed, dyslipidemia, and tobacco abuse who presented to the ER with dark tarry stools and syncopal episode. In the ER he underwent an extensive evaluation. Vital signs stable, hemoglobin 7.6, lactic acid 3, influenza A and COVID testing negative. In the ER he try to get up for x-ray and again became dizzy and had an additional episode of black tarry stool. He was ordered 1 unit of packed red blood cells. He was admitted for further monitoring. GI was consulted and started him on a clear liquid diet and nothing by mouth after midnight. On the floor patient began having hematemesis and became tachycardic and had worsening dizziness. Stat repeat CBC. He also hemoglobin of 5.1. 2 additional units of packed red blood cells were ordered as well as 1 g of calcium gluconate and the patient was transferred to the ICU. His hemoglobin remained low and initial 2 units of packed red blood cells were ordered. He underwent EGD on the morning of 03/05 which demonstrated visible vessel with active bleeding in the duodenal all sug gestive of a Dieulafoy's lesion which was injected with epi and had an endoclip placed with good results. He required additional blood transfusion. his hemoglobin stabilized by the morning of 03/06. He was out of bed on 03/07 and had worsening of his low back pain. CT did not show any acute process. He was seen by spine surgery who recommended steroids, LSO brace, and physical therapy to help with pain. His pain began to slowly improve. He continued to have some dizziness upon standing. Orthostatics were negative. CT abd and pelvis: no acute process Chest x-ray: no acute process Lumbar spine: stable postoperative changes Echocardiogram: Ejection fraction 50-55%, mild valvular dysfunction Patient seen and examined at bedside. He had a small bowel movement this morning, he continues to have some dizziness on standing, he denies any chest pain or shortness of breath. General: Nontoxic, no distress appears at stated age Derm: warm, dry Head: atraumatic, normocephalic, symmetric Eyes: EOMI, no lid lag, anicteric sclera Mouth: no lip lesion, mucus membranes moist Cardiovascular: S1S2 reg, no murmur, positive posterior tibial pulse bilateral, Lungs: Decreased breath sounds bilateral, no accessory muscle use Abdominal: soft, nontender to palpation, no guarding, no appreciable or ganomegaly Ext: no gross muscle atrophy, no edema, no contractures Neuro: CN II-XI grossly intact, no focal neuro deficits Psych: Alert, oriented, appropriate affect Upper GI bleed secondary to Dieulafoy's lesion, acute blood loss anemia, -Status post 7 units of packed red blood cells, coagulation studies are normal. - Follow CBC - GI recs appreciated - on PPI Acute on Chronic back pain - conitnue zanaflex, Percocet, Dilaudid, flexaril - ortho spine recs - IV decadron to methypred in AM Probable syncope, fall, dizziness - due to acute blood loss - Orthostatics negative - Echo with EF 55-60%, no significant valvular dysfunction - Tele -Carotid Dopplers without flow-limiting lesions bilaterally Tobacco abuse - cessation - nicotine replacement if needed Depression - Paxil Hypokalemia, resolved Thrombocytopenia, resolved DVT prophylaxis: SCDs Discussed with: patient, nursing Anticipated discharge: in AM Anticipated discharge place: home A total of 25 minutes was spent on the care of this complex patient more than 50% of the time was spent in counseling and care coordination. Objective - Vital Signs Vital signs: Vital Signs Temp 97.3 F L 03/10/21 11:19 Pulse 71 03/10/21 11:26 Resp 24 03/10/21 11:19 BP 110/56 03/10/21 11:26 Pulse Ox 96 03/10/21 11:19 Intake & Output 03/09/21 03/10/21 03/10/21 18:59 06:59 18:59 Intake Total 1440 240 Output Total 400 600 Balance 1040 -600 240 Weight 93.2 kg 93.2 kg Intake: Oral 1440 240 Output: Urine 400 600 Other: Voiding Method Urinal Urinal # Voids 2 1 1 - Labs CBC & Chem 7: 03/10/21 06:49 03/09/21 06:47 Labs: Abnormal Lab Results - Last 24 Hours (Table) 03/09/21 03/09/21 03/10/21 Range/Units 16:44 20:08 06:08 WBC (3.8-10.6) k/uL RBC (4.30-5.90) m/uL Hgb (13.0-17.5) gm/dL Hct (39.0-53.0) % RDW (11.5-15.5) % POC Glucose (mg/dL) 144 H 186 H 129 H (75-99) mg/dL 03/10/21 03/10/21 Range/Units 06:49 11:46 WBC 16.1 H (3.8-10.6) k/uL RBC 2.70 L (4.30-5.90) m/uL Hgb 8.7 L (13.0-17.5) gm/dL Hct 25.8 L (39.0-53.0) % RDW 19.6 H (11.5-15.5) % POC Glucose (mg/dL) 141 H (75-99) mg/dL
[2021-03-10 16:54] LABS: Glucose,Whole Blood 146 mg/dL (75-99)
[2021-03-10] MEDS: PANTOPRAZOLE 40 MG TABLET PO SCH (17:08)
[2021-03-10 20:35] LABS: Glucose,Whole Blood 115 mg/dL (75-99)
[2021-03-10] MEDS: ATORVASTATIN 40 MG TAB PO SCH (20:49)
[2021-03-10 22:54] LABS: Hemoglobin A1C 5.2 % (4.0-6.0)
[2021-03-11] MEDS: HYDROmorphone 1 MG/ML 1 ML SYRINGE IVP PRN ×2 (05:09→08:31)
[2021-03-11 06:21] LABS: Glucose,Whole Blood 103 mg/dL (75-99)
[2021-03-11] MEDS: INSULIN ASPART (NovoLOG) 100 UNIT/ML VIAL SQ SCH (06:27)
[2021-03-11] MEDS: PANTOPRAZOLE 40 MG TABLET PO SCH (06:51)
[2021-03-11] MEDS: FERROUS SULFATE 325 MG TAB PO SCH (06:51)
[2021-03-11 08:29] VITALS: BP 146/71; PULSE 71; RESP 20; TEMP 98.1
[2021-03-11] MEDS: polyethylene glycoL 3350 17 GM POWD.PACK PO SCH (08:31)
[2021-03-11] MEDS: PARoxetine 20 MG TAB PO SCH (08:31)
[2021-03-11] MEDS: tiZANidine 4 MG TAB PO SCH (08:31)
--- NOTE | 2021-03-11 12:07 | P.PN ---
Subjective Progress Note Date: 03/11/21 Principal diagnosis: Acute GI bleed, syncope She is a 60-year-old pleasant male who was admitted to the hospital with acute GI bleed. He had significant amount of bleeding requiring 7 units of PRBC transfusion. 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 The patient was seen and examined sitting up in the bedside chair eating his breakfast. He states he had some dizziness again yesterday and just not feeling well so he was kept overnight. He had a carotid ultrasound which showed no significant stenosis bilaterally. He states he's feeling much better today. Denies abdominal pain, nausea, or vomiting. Had a bowel movement yesterday, nothing today. Denies any signs or symptoms of GI bleed. Objective - Vital Signs Vital signs: Vital Signs Temp 98.1 F 03/11/21 08:00 Pulse 71 03/11/21 08:00 Resp 20 03/11/21 08:00 BP 146/71 03/11/21 08:00 Pulse Ox 96 03/11/21 08:00 Intake & Output 03/10/21 03/11/21 03/11/21 18:59 06:59 18:59 Intake Total 720 Output Total 800 800 Balance 720 -800 -800 Weight 93.2 kg 93.7 kg Intake: Oral 720 Output: Urine 800 800 Other: Voiding Method Urinal # Voids 1 - Exam General appearance: The patient is alert, oriented, appears in no acute distress. HET: Head is normocephalic and atraumatic. Conjunctiva pink. Sclera anicteric. Neck: Supple without lymphadenopathy. Abdomen: Soft, mild diffuse tenderness, nondistended with bowel sounds. No guarding or rigidity. Extremities: Normal skin color and turgor. No pedal edema Skin: No rashes, no jaundice Neurological: No focal deficits. Alert and oriented 3. - Labs CBC & Chem 7: 03/10/21 06:49 03/09/21 06:47 Labs: Abnormal Lab Results - Last 24 Hours (Table) 03/10/21 03/10/21 03/11/21 Range/Units 16:52 20:34 06:19 POC Glucose (mg/dL) 146 H 115 H 103 H (75-99) mg/dL Assessment and Plan (1) GI bleed Narrative/Plan: This is a pleasant 60-year-old male who presented to the emergency department after feeling dizzy and he got up to go to the bathroom and subsequently passed out and fell. He states he had a dark stool the day before and was not feeling well, states he was just feeling "off". He states he has a history in June 2020 where he had a similar episode and he fell which at that time states he fractured his back and neck as well as lost his front teeth, he was found to be anemic at that time and underwent an upper endoscopy while she was in the [facility]. He states he was told he had an ulcer. He has not had any follow-up since then. He also states he is not on any NSAIDs, anticoagulation, and not on any proton pump inhibitors. He is status post 7 units of PRBC transfusion this admission. He is status post upper endoscopy with a visible vessel with active bleeding noted in the duodenal bulb suggestive of a Dieulafoy lesion status post epinephrine injection and Endo Clip placement with good hemostasis, and a small hiatal hernia. Current Visit: Yes Status: Acute Code(s): K92.2 - GASTROINTESTINAL HEMORRHAGE, UNSPECIFIED SNOMED Code(s): 83498887 (2) Syncope and collapse Current Visit: Yes Status: Acute Code(s): R55 - SYNCOPE AND COLLAPSE SNOMED Code(s): 158256873 Plan: 1. Continue symptomatic and supportive care 2. Continue Regular diet 3. Repeat daily CBC 4. Continue Protonix 40 mg twice daily 5. Start iron by mouth daily 6. Patient is cleared by gastro-enterology to be discharged home, discussed with patient follow-up appointment in 1-2 weeks. Thank you for this consultation, we will sign off at this time Dr. Brittany Lawler I agree with the dictator's note, documented as a scribe by Radha Barker.
[2021-03-11] MEDS: oxyCODONE-APAP 10-325MG 1 EACH TAB PO PRN (12:09)
--- NOTE | 2021-03-11 18:54 | P.DS ---
Providers Date of admission: 03/05/21 00:35 Expected date of discharge: 03/11/21 Attending physician: Curt Fletcher MD Consults: 03/04/21 06:56 Consult Physician Urgent Consulting Provider: Odette Lawler Consult Reason/Comments: Acute GI bleeding. Anemia Do you want consulting provider notified?: Yes 03/04/21 23:19 Consult Physician Routine Consulting Provider: Sanket Talley Consult Reason/Comments: GI bleed Do you want consulting provider notified?: Already Contacted 03/07/21 10:41 Consult Physician Routine Consulting Provider: Juan Bundy Consult Reason/Comments: spine pain ater syncope Do you want consulting provider notified?: Already Contacted Primary care physician: [facility] Course: Discharge Diagnosis: Upper GI bleed secondary to Dieulafoy's lesion, acute blood loss anemia, Acute on Chronic back pain, fascial strain Probable syncope, fall, dizziness Tobacco abuse Depression Hypokalemia, resolved Thrombocytopenia, resolved Hospital Course: Patient is a 60-year-old male with history of prior GI bleed, dyslipidemia, and tobacco abuse who presented to the ER with dark tarry stools and syncopal episode. In the ER he underwent an extensive evaluation. Vital signs stable, hemoglobin 7.6, lactic acid 3, influenza A and COVID testing negative. In the ER he try to get up for x-ray and again became dizzy and had an additional episode of black tarry stool. He was ordered 1 unit of packed red blood cells. He was admitted for further monitoring. GI was consulted and started him on a clear liquid diet and nothing by mouth after midnight. On the floor patient began having hematemesis and became tachycardic and had worsening dizziness. Stat repeat CBC. He also hemoglobin of 5.1. 2 additional units of packed red blood cells were ordered as well as 1 g of calcium gluconate and the patient was transferred to the ICU. His hemoglobin remained low and initial 2 units of packed red blood cells were ordered. He underwent EGD on the morning of 03/05 which demonstrated visible vessel with active bleeding in the duodenal all suggestive of a Dieulafoy's lesion which was injected with epi and had an endoclip placed with good results. He required additional blood transfusion. his hemoglobin stabilized by the morning of 03/06. He was out of bed on 03/07 and had worsening of his low back pain. CT did not show any acute process. He was seen by spine surgery who recommended steroids, LSO brace, and physical therapy to help with pain. His pain began to slowly improve. He continued to have some dizziness upon standing. Orthostatics were negative. Dizziness conitnued to improve. Patient was discharge home in stable condition. Follow-up: Dr. Castellon in 2 weeks, PCP in 1-2 days, initiated on Protonix. Given instructions not to consume NSAIDs. Patient seen and examined at bedside. Back pain, weakness, and dizziness is improving every day. He wants to be discharged home. Did not have any more bowel movements but is feeling well. No other complaints currently. Vital signs reviewed and stable. General: non toxic, no distress, appears at stated age Derm: warm, dry Head: atraumatic, normocephalic, symmetric Eyes: EOMI, no lid lag, anicteric sclera Mouth: no lip lesion, mucus membranes moist Cardiovascular: S1S2 reg, no murmur, positive posterior tibial pulse bilateral, Lungs: Rhonchi bilateral , no accessory muscle use Abdominal: soft, nontender to palpation, no guarding, no appreciable organomegaly Ext: no gross muscle atrophy, no edema, no contractures Neuro: CN II-XI grossly intact, no focal neuro deficits Psych: Alert, oriented, appropriate affect A total of 35 minutes of time were spent preparing this complex discharge [facility] . Plan - Discharge Summary New Discharge Prescriptions: New Ferrous Sulfate [Iron (65 MG Elemental)] 325 mg PO BID-W/MEALS #30 tab Pantoprazole [Protonix] 40 mg PO AC-BID #60 tablet.[address] Otero PARoxetine [Paxil] 20 mg PO DAILY Disulfiram [Antabuse] 250 mg PO DAILY Atorvastatin [Lipitor] 40 mg PO HS tiZANidine [Zanaflex] 4 mg PO BID oxyCODONE-APAP 10-325MG [Percocet 10-325 mg] 1 tab PO Q8HR PRN PRN Reason: Pain Methadone [Dolophine] 10 mg PO Q4H PRN PRN Reason: Pain Levocetirizine Dihydrochloride 5 mg PO DAILY Discharge Medication List Atorvastatin [Lipitor] 40 mg PO HS 03/04/21 [History] Disulfiram [Antabuse] 250 mg PO DAILY 03/04/21 [History] Levocetirizine Dihydrochloride 5 mg PO DAILY 03/04/21 [History] Methadone [Dolophine] 10 mg PO Q4H PRN 03/04/21 [History] PARoxetine [Paxil] 20 mg PO DAILY 03/04/21 [History] oxyCODONE-APAP 10-325MG [Percocet 10-325 mg] 1 tab PO Q8HR PRN 03/04/21 [History] tiZANidine [Zanaflex] 4 mg PO BID 03/04/21 [History] Ferrous Sulfate [Iron (65 MG Elemental)] 325 mg PO BID-W/MEALS #30 tab 03/11/21 [Rx] Pantoprazole [Protonix] 40 mg PO AC-BID #60 tablet. 03/11/21 [Rx] Follow up Appointment(s)/Referral(s): Odette Lawler MD [STAFF PHYSICIAN] - 2 Weeks Sanket Rodriguez DO [Primary Care Provider] - 1-2 days Patient Instructions/Handouts: Gastrointestinal Bleeding (GEN) Activity/Diet/Wound Care/Special Instructions: Activity: as tolerated Diet: regular Discharge Disposition: HOME WITH HOME HEALTH SERVICES
== END 2021-03-11 13:08 | disposition home or self-care (01) | DRG 378 ==
LOC: EC 04:51 → 6NMEDSUR 06:56 → 3SCARD 10:27 → 2SICU 03-05 00:31 → OBSVTOIN 03-05 00:35 → 3SCARD 03-07 09:35
PROVIDERS: ADMIT Internal Medicine; ATTEND Internal Medicine
PROC: 30233N1 Transfusion of Nonautologous Red Blood Cells into Peripheral Vein, Percutaneous Approach (ICD-10-PCS; 2021-03-04)
PROC: 0W3P8ZZ Control Bleeding in Gastrointestinal Tract, Via Natural or Artificial Opening Endoscopic (ICD-10-PCS; principal; 2021-03-05 07:30)
DX: K31.82 Dieulafoy lesion (hemorrhagic) of stomach and duodenum (principal); D62 Acute posthemorrhagic anemia; D69.6 Thrombocytopenia, unspecified; I95.9 Hypotension, unspecified; J44.9 Chronic obstructive pulmonary disease, unspecified; Z20.822 Contact with and (suspected) exposure to COVID-19; S39.012A Strain of muscle, fascia and tendon of lower back, initial encounter; E87.6 Hypokalemia; F32.9 Major depressive disorder, single episode, unspecified; E78.5 Hyperlipidemia, unspecified; K44.9 Diaphragmatic hernia without obstruction or gangrene; N50.811 Right testicular pain; G89.29 Other chronic pain; M54.5 Low back pain; M54.10 Radiculopathy, site unspecified; F17.200 Nicotine dependence, unspecified, uncomplicated; F10.11 Alcohol abuse, in remission; Z79.899 Other long term (current) drug therapy; Z87.11 Personal history of peptic ulcer disease; Z87.19 Personal history of other diseases of the digestive system; Z90.89 Acquired absence of other organs; Z87.438 Personal history of other diseases of male genital organs; Z87.39 Personal history of other diseases of the musculoskeletal system and connective tissue; Z96.651 Presence of right artificial knee joint; Z98.890 Other specified postprocedural states; W18.11XA Fall from or off toilet without subsequent striking against object, initial encounter; Y92.002 Bathroom of unspecified non-institutional (private) residence as the place of occurrence of the external cause
CPT/HCPCS: 36415; 43236; 43255; 71045; 72100; 72128; 72131; 74177; 80048; 80053; 82330; 83036; 83605; 83735; 84100; 84484; 85025; 85027; 85384; 85610; 85730; 86850; 86900; 86901; 86920; 87636; 93005; 93306; 93880; 94760; 96374; 96375; 96376; 99285

== ENCOUNTER 2021-03-18 16:19 | Emergency (ER) | payer MEDICARE ==
[2021-03-18 17:38] LABS: Anisocytosis Slight; Basophils % (A) 1 %; Eosinophils # (A) 0.2 k/uL (0-0.7); Eosinophils % (A) 2 %; HCT 29.5 % (39.0-53.0); HGB 9.7 gm/dL (13.0-17.5); Lymphocytes # (A) 1.4 k/uL (1.0-4.8); Lymphocytes % (A) 21 %; MCH 32.1 pg (25.0-35.0); MCHC 32.9 g/dL (31.0-37.0); MCV 97.4 fL (80.0-100.0); Macrocytosis Slight; Mean Platelet Volume 6.8; Monocytes # (A) 0.5 k/uL (0-1.0); Monocytes % (A) 7 %; Neutrophils # (A) 4.6 k/uL (1.3-7.7); Neutrophils % (A) 67 %; Platelet Count 273 k/uL (150-450); RBC 3.02 m/uL (4.30-5.90); RDW 18.3 % (11.5-15.5); WBC 6.9 k/uL (3.8-10.6)
[2021-03-18 17:49] LABS: ALT 20 U/L (4-49); AST 21 U/L (17-59); African American GFR (CKD) >90 (>60 ml/min/1.73 sqM); Albumin 3.2 g/dL (3.5-5.0); Alkaline Phosphatase 72 U/L (38-126); Anion Gap 5 mmol/L; Blood Urea Nitrogen 13 mg/dL (9-20); Calcium 8.9 mg/dL (8.4-10.2); Carbon Dioxide 28 mmol/L (22-30); Chloride 107 mmol/L (98-107); Glucose 88 mg/dL (74-99); Magnesium 1.9 mg/dL (1.6-2.3); Non-African American GFR(CKD) >90 (>60 ml/min/1.73 sqM); Sodium 140 mmol/L (137-145); Total Bilirubin 0.3 mg/dL (0.2-1.3); Total Protein 5.6 g/dL (6.3-8.2)
[2021-03-18 17:53] LABS: INR 0.8 (<1.2); Partial Thromboplastin Time 25.7 sec (22.0-30.0); Prothrombin Time 9.4 sec (9.0-12.0)
[2021-03-18] MEDS ORDERED: SODIUM CHLORIDE 0.9% 1,000 ML IV STA (17:56)
--- NOTE | 2021-03-18 18:01 | ED ---
General Adult HPI - General Chief complaint: Dizziness Stated complaint: Swollen feet, Abd pain, back pain, Dizziness Time Seen by Provider: 03/18/21 17:02 Source: patient, family Mode of arrival: wheelchair Limitations: no limitations - History of Present Illness Initial comments: Dictation was produced using [employer] dictation software. please excuse any grammatical, word or spelling errors. This patient was cared for during a federal and state declared state of emergency secondary to Covid 19 Chief Complaint: 60-year-old male recently discharged from the hospital for GI bleed presents to the emergency department for headache, lower leg swelling. History of Present Illness: 60-year-old male he was just recently discharged from the hospital approximately one week ago. He was admitted to the hospital for acute GI bleed. He presented with anemia. He states he received 8 units of blood transfusion. He was seen by GI doctor and was found to have a leading duodenal ulcer. Intervention was performed with good hemostasis. Patient seen by his primary care doctor and had repeat labs with improving findings. The last 2-3 days he's been having worsening lower extremity swelling bilaterally, headache and dizziness. he reports she just does not feel normal. Denies any shortness of breath however he does report having some abdominal pain whenever he Valsalva's. He has no noticeable bulge. States that the pain is in right lower quadrant. States he has not really had a good bowel movement. The ROS documented in this emergency department record has been reviewed and confirmed by me. Those systems with pertinent positive or negative responses have been documented in the HPI. All other systems are other negative and/or noncontributory. PHYSICAL EXAM: General Impression: Alert and oriented x3, not in acute distress HEENT: Normocephalic atraumatic, extra-ocular movements intact, pupils equal and reactive to light bilaterally, mucous membranes moist. Cardiovascular: Heart regular rate and rhythm Chest: Able to complete full sentences, no retractions, no tachypnea Abdomen: abdomen soft, non-tender, non-distended, no organomegaly Musculoskeletal: Pulses present and equal in all extremities, no peripheral edema Motor: no focal deficits noted Neurological: CN II-XII grossly intact, no focal motor or sensory deficits noted Skin: Intact with no visualized rashes Psych: Normal affect and mood ED course: 60-year-old male presents with multiple complaints. Vital signs upon arrival are within acceptable limits. Appearing at bedside. Lipitor evaluation obtained. Hemoglobin is improving 9.7. Rest of labs are unremarkable. Metabolic panel is normal. Abdominal x-ray chest x-ray shows no acute processes. Patient reevaluated at bedside in stable medical condition. Patient was discharged advised to follow up with his primary care physician. EKG interpretation: Ventricular rate 70, sinus rhythm, TX interval 144, QRS 80, QTc 432. No TX prolongation, no QTC prolongation, no ST or T-wave changes noted. Overall, this EKG is unremarkable - Related Data Home Medications Medication Instructions Recorded Confirmed Atorvastatin [Lipitor] 40 mg PO DAILY 03/04/21 03/18/21 Disulfiram [Antabuse] 250 mg PO DAILY 03/04/21 03/18/21 Levocetirizine Dihydrochloride 5 mg PO DAILY 03/04/21 03/18/21 Methadone [Dolophine] 10 mg PO TID 03/04/21 03/18/21 PARoxetine [Paxil] 20 mg PO DAILY 03/04/21 03/18/21 oxyCODONE-APAP 10-325MG [Percocet 1 tab PO Q4H PRN 03/04/21 03/18/21 10-325 mg] tiZANidine [Zanaflex] 4 mg PO BID 03/04/21 03/18/21 Previous Rx's Medication Instructions Recorded Ferrous Sulfate [Iron (65 MG 325 mg PO BID-W/MEALS #30 tab 03/11/21 Elemental)] Pantoprazole [Protonix] 40 mg PO AC-BID #60 tablet. 03/11/21 Allergies Allergy/AdvReac Type Severity Reaction Status Date / Time No Known Allergies Allergy Verified 03/18/21 18:09 Review of Systems ROS Statement: Those systems with pertinent positive or pertinent negative responses have been documented in the HPI. ROS Other: All systems not noted in ROS Statement are negative. Past Medical History Past Medical History: GI Bleed, Hyperlipidemia History of Any Multi-Drug Resistant Organisms: None Reported Past Surgical History: Hernia Repair, Orthopedic Surgery, Tonsillectomy Additional Past Surgical History / Comment(s): Proste surgery Past Psychological History: No Psychological Hx Reported Smoking Status: Current every day smoker Past Alcohol Use History: None Reported Past Drug Use History: None Reported General Exam Limitations: no limitations Course Vital Signs 03/18/21 03/18/21 03/18/21 16:47 17:49 18:00 Temperature 98 F Pulse Rate 88 76 76 Respiratory 18 18 18 Rate Blood Pressure 132/81 124/69 124/69 O2 Sat by Pulse 95 97 97 Oximetry Medical Decision Making - Lab Data Result diagrams: 03/18/21 17:31 03/18/21 17:31 Lab Results 03/18/21 03/18/21 03/18/21 Range/Units 17:31 17:31 17:31 WBC 6.9 (3.8-10.6) k/uL RBC 3.02 L (4.30-5.90) m/uL Hgb 9.7 L (13.0-17.5) gm/dL Hct 29.5 L (39.0-53.0) % MCV 97.4 (80.0-100.0) fL MCH 32.1 (25.0-35.0) pg MCHC 32.9 (31.0-37.0) g/dL RDW 18.3 H (11.5-15.5) % Plt Count 273 (150-450) k/uL MPV 6.8 Neutrophils % 67 % Lymphocytes % 21 % Monocytes % 7 % Eosinophils % 2 % Basophils % 1 % Neutrophils # 4.6 (1.3-7.7) k/uL Lymphocytes # 1.4 (1.0-4.8) k/uL Monocytes # 0.5 (0-1.0) k/uL Eosinophils # 0.2 (0-0.7) k/uL Basophils # 0.0 (0-0.2) k/uL Anisocytosis Slight Macrocytosis Slight PT 9.4 (9.0-12.0) sec INR 0.8 (<1.2) APTT 25.7 (22.0-30.0) sec Sodium 140 (137-145) mmol/L Potassium 4.0 (3.5-5.1) mmol/L Chloride 107 (98-107) mmol/L Carbon Dioxide 28 (22-30) mmol/L Anion Gap 5 mmol/L BUN 13 (9-20) mg/dL Creatinine 0.80 (0.66-1.25) mg/dL Est GFR (CKD-EPI)AfAm >90 (>60 ml/min/1.73 sqM) Est GFR (CKD-EPI)NonAf >90 (>60 ml/min/1.73 sqM) Glucose 88 (74-99) mg/dL Plasma Lactic Acid Semaj (0.7-2.0) mmol/L Calcium 8.9 (8.4-10.2) mg/dL Magnesium 1.9 (1.6-2.3) mg/dL Total Bilirubin 0.3 (0.2-1.3) mg/dL AST 21 (17-59) U/L ALT 20 (4-49) U/L Alkaline Phosphatase 72 (38-126) U/L Troponin I (0.000-0.034) ng/mL Total Protein 5.6 L (6.3-8.2) g/dL Albumin 3.2 L (3.5-5.0) g/dL Blood Type Blood Type Recheck Bld Type Recheck Status Antibody Screen Spec Expiration Date 03/18/21 03/18/21 03/18/21 Range/Units 17:31 17:31 17:31 WBC (3.8-10.6) k/uL RBC (4.30-5.90) m/uL Hgb (13.0-17.5) gm/dL Hct (39.0-53.0) % MCV (80.0-100.0) fL MCH (25.0-35.0) pg MCHC (31.0-37.0) g/dL RDW (11.5-15.5) % Plt Count (150-450) k/uL MPV Neutrophils % % Lymphocytes % % Monocytes % % Eosinophils % % Basophils % % Neutrophils # (1.3-7.7) k/uL Lymphocytes # (1.0-4.8) k/uL Monocytes # (0-1.0) k/uL Eosinophils # (0-0.7) k/uL Basophils # (0-0.2) k/uL Anisocytosis Macrocytosis PT (9.0-12.0) sec INR (<1.2) APTT (22.0-30.0) sec Sodium (137-145) mmol/L Potassium (3.5-5.1) mmol/L Chloride (98-107) mmol/L Carbon Dioxide (22-30) mmol/L Anion Gap mmol/L BUN (9-20) mg/dL Creatinine (0.66-1.25) mg/dL Est GFR (CKD-EPI)AfAm (>60 ml/min/1.73 sqM) Est GFR (CKD-EPI)NonAf (>60 ml/min/1.73 sqM) Glucose (74-99) mg/dL Plasma Lactic Acid Semaj 0.6 L (0.7-2.0) mmol/L Calcium (8.4-10.2) mg/dL Magnesium (1.6-2.3) mg/dL Total Bilirubin (0.2-1.3) mg/dL AST (17-59) U/L ALT (4-49) U/L Alkaline Phosphatase (38-126) U/L Troponin I <0.012 (0.000-0.034) ng/mL Total Protein (6.3-8.2) g/dL Albumin (3.5-5.0) g/dL Blood Type B Positive Blood Type Recheck B Pos Bld Type Recheck Status No Antibody Screen NEGATIVE Spec Expiration Date 03/21/2021 - 2330 Disposition Clinical Impression: Dizziness Disposition: HOME SELF-CARE Condition: Good Instructions (If sedation given, give patient instructions): Dizziness (ED) Is patient prescribed a controlled substance at d/c from ED?: No Referrals: Sanket Rodriguez DO [Primary Care Provider] - 1-2 days
[2021-03-18] MEDS ORDERED: HYDROmorphone 0.5 MG/0.5 ML SYRINGE IVP STA (18:34)
--- NOTE | 2021-03-18 18:56 | XR ---
EXAMINATION TYPE: XR chest 1V portable DATE OF EXAM: 03/18/2021 COMPARISON: 03/04/2021 HISTORY: Abdominal pain TECHNIQUE: Single view FINDINGS: Heart is normal. Lungs are clear of infiltrate. There are old left side rib fractures. Ther e is right shoulder prosthesis. Costophrenic angles are clear. IMPRESSION: No active cardiopulmonary disease. No change.
--- NOTE | 2021-03-18 19:04 | XR ---
EXAMINATION TYPE: XR abdomen 1V DATE OF EXAM: 03/18/2021 COMPARISON: NONE HISTORY: Abdominal pain TECHNIQUE: 2 views portable FINDINGS: There is posterior fusion surgery in the lumbar spine with multilevel laminectomy. There is no sign of intestinal obstruction or pneumoperitoneum. Fecal pattern is normal. There is linear meta llic density over the left mid abdomen. The bony structures appear intact. Lung bases are clear. I se e no calcifications over the kidneys. IMPRESSION: Nonacute abdomen. Possible abdominal foreign body on the left side.
[2021-03-18 19:38] VITALS: BP 127/70; PULSE 75; RESP 20; TEMP 97.8
== END 2021-03-18 19:38 | disposition home or self-care (01) ==
LOC: EC 16:19
DX: R42 Dizziness and giddiness (principal); M79.89 Other specified soft tissue disorders; R10.31 Right lower quadrant pain; R51.9 Headache, unspecified; M54.9 Dorsalgia, unspecified; E78.5 Hyperlipidemia, unspecified; F17.200 Nicotine dependence, unspecified, uncomplicated
CPT/HCPCS: 36415; 93005; 86900; 86901; 80053; 83605; 83735; 84484; 85025; 85610; 85730; 86850; 71045; 74018; 99284; 96374; J1170

== ENCOUNTER 2021-05-16 16:26 | Emergency (ER) | payer MEDICARE ==
--- NOTE | 2021-05-16 17:00 | ED ---
General Adult HPI - General Chief complaint: GI Bleed Stated complaint: Poss GI Bleed Time Seen by Provider: 05/16/21 16:37 Source: patient, family Mode of arrival: ambulatory Limitations: no limitations - History of Present Illness Initial comments: Dictation was produced using new test [employer] dictation software. please excuse any grammatical, word or spelling errors. Chief Complaint: 60-year-old male presents with generalized weakness, black stools and abdominal pain History of Present Illness: Patient 60-year-old male who states that over the last couple days he's been having worsening dizziness, lightheadedness, generalized weakness and abdominal pain. Has any chest pain. He has history of anemia. Patient reports that today he had black stools. He takes iron supplementation. She was noted to the intensive care unit in February of this year for GI hemorrhage. He was in the ICU and transfused multiple units of blood. Patient's last hemoglobin was checked according to recently with the level of 11.0. Patient has any fevers. He does complain of some night sweats. He has pain in his right lower quadrant. Patient denies any history of appendectomy. Denies any cough. No runny nose or sore throat. No urinary symp toms. The ROS documented in this emergency department record has been reviewed and confirmed by me. Those systems with pertinent positive or negative responses have been documented in the HPI. All other systems are other negative and/or noncontributory. PHYSICAL EXAM: General Impression: Alert and oriented x3, not in acute distress HEENT: Normocephalic atraumatic, extra-ocular movements intact, pupils equal and reactive to light bilaterally, mucous membranes moist. Cardiovascular: Heart regular rate and rhythm Chest: Able to complete full sentences, no retractions, no tachypnea Abdomen: abdomen soft, tenderness to palpation of McBurney's point, as of rebound tenderness non-distended, no organomegaly Musculoskeletal: Pulses present and equal in all extremities, no peripheral edema Motor: no focal deficits noted Neurological: CN II-XII grossly intact, no focal motor or sensory deficits noted Skin: Intact with no visualized rashes Psych: Normal affect and mood Rectal exam: No gross blood, no black tarry stools with digital rectal exam ED course: 60-year-old male presents with generalized weakness, fatigue. Vital signs upon arrival shows tachycardia 124, rest of vital signs within acceptable limits. Chart review was performed. Patient was discharged from our hospital on March 11. He did during that admission undergo EGD which showed active bleeding at the level of the duodenum. Laboratory evaluation obtained per it CBC, coag panel, metabolic panel is unremarkable. Stool occult blood is negative. Computed tomography scan of the abdomen and pelvis shows no acute processes. Nothing to explain patient's symptoms. Everything appears to be baseline. Patient reevaluated 6:20 PM found to be in stable medical condition. Patient be discharged. EKG interpretation: Ventricular rate sinus tachycardia, ventricular rate 107, QRS 76, QTC 416. No NH prolongation, no QTC prolongation. Patient was evaluated at bedside and found to be tachycardic into the 120s. Repeat EKG was obtained showing similar findings and no dynamic changes. - Related Data Home Medications Medication Instructions Recorded Confirmed Atorvastatin [Lipitor] 40 mg PO DAILY 03/04/21 03/18/21 Disulfiram [Antabuse] 250 mg PO DAILY 03/04/21 03/18/21 Levocetirizine Dihydrochloride 5 mg PO DAILY 03/04/21 03/18/21 Methadone [Dolophine] 10 mg PO TID 03/04/21 03/18/21 PARoxetine [Paxil] 20 mg PO DAILY 03/04/21 03/18/21 oxyCODONE-APAP 10-325MG [Percocet 1 tab PO Q4H PRN 03/04/21 03/18/21 10-325 mg] tiZANidine [Zanaflex] 4 mg PO BID 03/04/21 03/18/21 Previous Rx's Medication Instructions Recorded Ferrous Sulfate [Iron (65 MG 325 mg PO BID-W/MEALS #30 tab 03/11/21 Elemental)] Pantoprazole [Protonix] 40 mg PO AC-BID #60 tablet. 03/11/21 Allergies Allergy/AdvReac Type Severity Reaction Status Date / Time No Known Allergies Allergy Verified 03/18/21 18:09 Review of Systems ROS Statement: Those systems with pertinent positive or pertinent negative responses have been documented in the HPI. ROS Other: All systems not noted in ROS Statement are negative. Past Medical History Past Medical History: GI Bleed, Hyperlipidemia History of Any Multi-Drug Resistant Organisms: None Reported Past Surgical History: Hernia Repair, Orthopedic Surgery, Tonsillectomy Additional Past Surgical History / Comment(s): Proste surgery Past Psychological History: No Psychological Hx Reported Smoking Status: Current every day smoker Past Alcohol Use History: None Reported Past Drug Use History: None Reported General Exam Limitations: no limitations Course Vital Signs 05/16/21 05/16/21 05/16/21 16:38 17:08 17:33 Temperature 98.6 F Pulse Rate 124 H 98 90 Respiratory 18 18 18 Rate Blood Pressure 124/103 135/90 116/92 O2 Sat by Pulse 97 96 98 Oximetry Medical Decision Making - Lab Data Result diagrams: 05/16/21 16:58 05/16/21 16:58 Lab Results 05/16/21 05/16/21 05/16/21 Range/Units 16:58 16:58 16:58 WBC 9.1 (3.8-10.6) k/uL RBC 4.54 (4.30-5.90) m/uL Hgb 14.4 D (13.0-17.5) gm/dL Hct 45.0 (39.0-53.0) % MCV 99.1 (80.0-100.0) fL MCH 31.8 (25.0-35.0) pg MCHC 32.1 (31.0-37.0) g/dL RDW 16.2 H (11.5-15.5) % Plt Count 194 (150-450) k/uL MPV 7.0 Neutrophils % 74 % Lymphocytes % 20 % Monocytes % 4 % Eosinophils % 0 % Basophils % 0 % Neutrophils # 6.8 (1.3-7.7) k/uL Lymphocytes # 1.8 (1.0-4.8) k/uL Monocytes # 0.3 (0-1.0) k/uL Eosinophils # 0.0 (0-0.7) k/uL Basophils # 0.0 (0-0.2) k/uL Anisocytosis Slight Macrocytosis Slight PT (9.0-12.0) sec INR (<1.2) APTT (22.0-30.0) sec Sodium (137-145) mmol/L Potassium (3.5-5.1) mmol/L Chloride (98-107) mmol/L Carbon Dioxide (22-30) mmol/L Anion Gap mmol/L BUN (9-20) mg/dL Creatinine (0.66-1.25) mg/dL Est GFR (CKD-EPI)AfAm (>60 ml/min/1.73 sqM) Est GFR (CKD-EPI)NonAf (>60 ml/min/1.73 sqM) Glucose (74-99) mg/dL Plasma Lactic Acid Semaj (0.7-2.0) mmol/L Calcium (8.4-10.2) mg/dL Magnesium (1.6-2.3) mg/dL Total Bilirubin (0.2-1.3) mg/dL AST (17-59) U/L ALT (4-49) U/L Alkaline Phosphatase (38-126) U/L Troponin I (0.000-0.034) ng/mL Total Protein (6.3-8.2) g/dL Albumin (3.5-5.0) g/dL Lipase (23-300) U/L Stool Occult Blood Negative (Negative) Blood Type B Positive Blood Type Recheck B Pos Bld Type Recheck Status No Antibody Screen NEGATIVE Spec Expiration Date 05/19/2021 - 235705/16/21 05/16/21 05/16/21 Range/Units 16:58 16:58 16:58 WBC (3.8-10.6) k/uL RBC (4.30-5.90) m/uL Hgb (13.0-17.5) gm/dL Hct (39.0-53.0) % MCV (80.0-100.0) fL MCH (25.0-35.0) pg MCHC (31.0-37.0) g/dL RDW (11.5-15.5) % Plt Count (150-450) k/uL MPV Neutrophils % % Lymphocytes % % Monocytes % % Eosinophils % % Basophils % % Neutrophils # (1.3-7.7) k/uL Lymphocytes # (1.0-4.8) k/uL Monocytes # (0-1.0) k/uL Eosinophils # (0-0.7) k/uL Basophils # (0-0.2) k/uL Anisocytosis Macrocytosis PT 9.7 (9.0-12.0) sec INR 0.9 (<1.2) APTT 22.9 (22.0-30.0) sec Sodium 140 (137-145) mmol/L Potassium 3.8 (3.5-5.1) mmol/L Chloride 109 H (98-107) mmol/L Carbon Dioxide 22 (22-30) mmol/L Anion Gap 9 mmol/L BUN 13 (9-20) mg/dL Creatinine 0.70 (0.66-1.25) mg/dL Est GFR (CKD-EPI)AfAm >90 (>60 ml/min/1.73 sqM) Est GFR (CKD-EPI)NonAf >90 (>60 ml/min/1.73 sqM) Glucose 125 H (74-99) mg/dL Plasma Lactic Acid Semaj 1.0 (0.7-2.0) mmol/L Calcium 9.7 (8.4-10.2) mg/dL Magnesium 1.8 (1.6-2.3) mg/dL Total Bilirubin 0.3 (0.2-1.3) mg/dL AST 25 (17-59) U/L ALT 22 (4-49) U/L Alkaline Phosphatase 69 (38-126) U/L Troponin I (0.000-0.034) ng/mL Total Protein 7.0 (6.3-8.2) g/dL Albumin 4.3 (3.5-5.0) g/dL Lipase 128 (23-300) U/L Stool Occult Blood (Negative) Blood Type Blood Type Recheck Bld Type Recheck Status Antibody Screen Spec Expiration Date 05/16/21 Range/Units 16:58 WBC (3.8-10.6) k/uL RBC (4.30-5.90) m/uL Hgb (13.0-17.5) gm/dL Hct (39.0-53.0) % MCV (80.0-100.0) fL MCH (25.0-35.0) pg MCHC (31.0-37.0) g/dL RDW (11.5-15.5) % Plt Count (150-450) k/uL MPV Neutrophils % % Lymphocytes % % Monocytes % % Eosinophils % % Basophils % % Neutrophils # (1.3-7.7) k/uL Lymphocytes # (1.0-4.8) k/uL Monocytes # (0-1.0) k/uL Eosinophils # (0-0.7) k/uL Basophils # (0-0.2) k/uL Anisocytosis Macrocytosis PT (9.0-12.0) sec INR (<1.2) APTT (22.0-30.0) sec Sodium (137-145) mmol/L Potassium (3.5-5.1) mmol/L Chloride (98-107) mmol/L Carbon Dioxide (22-30) mmol/L Anion Gap mmol/L BUN (9-20) mg/dL Creatinine (0.66-1.25) mg/dL Est GFR (CKD-EPI)AfAm (>60 ml/min/1.73 sqM) Est GFR (CKD-EPI)NonAf (>60 ml/min/1.73 sqM) Glucose (74-99) mg/dL Plasma Lactic Acid Semaj (0.7-2.0) mmol/L Calcium (8.4-10.2) mg/dL Magnesium (1.6-2.3) mg/dL Total Bilirubin (0.2-1.3) mg/dL AST (17-59) U/L ALT (4-49) U/L Alkaline Phosphatase (38-126) U/L Troponin I <0.012 (0.000-0.034) ng/mL Total Protein (6.3-8.2) g/dL Albumin (3.5-5.0) g/dL Lipase (23-300) U/L Stool Occult Blood (Negative) Blood Type Blood Type Recheck Bld Type Recheck Status Antibody Screen Spec Expiration Date Disposition Clinical Impression: Abdominal pain Disposition: HOME SELF-CARE Condition: Good Instructions (If sedation given, give patient instructions): Abdominal Pain (ED) Is patient prescribed a controlled substance at d/c from ED?: No Referrals: Sanket Rodriguez DO [Primary Care Provider] - 1-2 days
[2021-05-16 17:01] VITALS: TEMP 98.6
[2021-05-16] MEDS ORDERED: HYDROmorphone 0.5 MG/0.5 ML SYRINGE IVP STA (17:10)
[2021-05-16 17:16] LABS: Anisocytosis Slight; Basophils % (A) 0 %; Eosinophils % (A) 0 %; Lymphocytes # (A) 1.8 k/uL (1.0-4.8); Lymphocytes % (A) 20 %; MCH 31.8 pg (25.0-35.0); MCHC 32.1 g/dL (31.0-37.0); MCV 99.1 fL (80.0-100.0); Macrocytosis Slight; Monocytes # (A) 0.3 k/uL (0-1.0); Monocytes % (A) 4 %; Neutrophils # (A) 6.8 k/uL (1.3-7.7); Neutrophils % (A) 74 %; Platelet Count 194 k/uL (150-450); RBC 4.54 m/uL (4.30-5.90); RDW 16.2 % (11.5-15.5); WBC 9.1 k/uL (3.8-10.6)
[2021-05-16 17:19] LABS: INR 0.9 (<1.2); Partial Thromboplastin Time 22.9 sec (22.0-30.0); Prothrombin Time 9.7 sec (9.0-12.0)
[2021-05-16 17:22] LABS: ALT 22 U/L (4-49); AST 25 U/L (17-59); African American GFR (CKD) >90 (>60 ml/min/1.73 sqM); Albumin 4.3 g/dL (3.5-5.0); Alkaline Phosphatase 69 U/L (38-126); Anion Gap 9 mmol/L; Blood Urea Nitrogen 13 mg/dL (9-20); Calcium 9.7 mg/dL (8.4-10.2); Carbon Dioxide 22 mmol/L (22-30); Chloride 109 mmol/L (98-107); Glucose 125 mg/dL (74-99); Lipase 128 U/L (23-300); Magnesium 1.8 mg/dL (1.6-2.3); Non-African American GFR(CKD) >90 (>60 ml/min/1.73 sqM); Potassium 3.8 mmol/L (3.5-5.1); Sodium 140 mmol/L (137-145); Total Bilirubin 0.3 mg/dL (0.2-1.3)
[2021-05-16 17:24] LABS: HGB 14.4 gm/dL (13.0-17.5)
--- NOTE | 2021-05-16 17:56 | CT ---
EXAMINATION TYPE: CT abdomen pelvis w con DATE OF EXAM: 05/16/2021 COMPARISON: 03/04/2021 HISTORY: weakness, dizzines, recent GI bleed CT DLP: 1118.7 mGycm Automated exposure control for dose reduction was used. CONTRAST: Performed with IV Contrast, patient injected with 100 mL of Isovue 300. Images obtained from the diaphragm to the floor the pelvis with IV contrast. Lung bases are clear of infiltrate. There is no pleural effusion. Heart size is normal. There is smal l pericardial effusion. Liver spleen stomach pancreas appear normal. The bile ducts are not dilated. Gallbladder appears normal. There is no adrenal mass. Kidneys have normal size and contour. There is no hydronephrosis. Ureters a re not dilated. There is 4 cm cortical cyst posterior right kidney. There is no retroperitoneal adeno alida. Bladder distends smoothly. There is no inguinal hernia. There is no mesenteric edema. There is no ascites or free air. I see no sign of a bowel obstruction. There are some fluid-filled small bowel loops in the mid abdomen that measure up to 2.5 cm. The appen kori is posterior and lateral and appears normal. The lumbar vertebra have normal alignment. There is narrowing of the disc spaces from L1 to S1. There is posterior multilevel fusion surgery. There is metal artifact. There is no compression fracture. T he bony pelvis is intact. There is some deformity of the superior right femoral head consistent with some chronic avascular necrosis and fracture. There is osteoarthritis in both hip joints. IMPRESSION: No acute abnormality of the abdomen pelvis. 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 Normal appendix. Atherosclerotic vascular disease.
[2021-05-16 18:13] VITALS: BP 120/88; PULSE 78; RESP 16
== END 2021-05-16 18:37 | disposition home or self-care (01) ==
LOC: EC 16:26
DX: R10.9 Unspecified abdominal pain (principal); E78.5 Hyperlipidemia, unspecified; F17.200 Nicotine dependence, unspecified, uncomplicated
CPT/HCPCS: 36415; 93005; 86900; 86901; 80053; 83605; 83690; 83735; 84484; 85025; 85610; 85730; 86850; 82272; 87040; 74177; 99285; J1170; Q9967

== ENCOUNTER 2021-07-17 15:34 | Emergency (ER) | payer MEDICARE ==
[2021-07-17 16:25] VITALS: TEMP 98.4
[2021-07-17] MEDS ORDERED: SODIUM CHLORIDE 0.9% 1,000 ML IV STA (17:17)
[2021-07-17] MEDS ORDERED: PANTOPRAZOLE 40 MG/10 ML VIAL IVP STA (17:17)
[2021-07-17] MEDS ORDERED: MORPHINE SULFATE 4 MG/ML SYRINGE IVP STA ×3 (18:06→19:02)
[2021-07-17 18:10] LABS: Basophils % (A) 0 %; Eosinophils # (A) 0.1 k/uL (0-0.7); Eosinophils % (A) 1 %; HCT 44.6 % (39.0-53.0); HGB 15.4 gm/dL (13.0-17.5); Lymphocytes # (A) 2.2 k/uL (1.0-4.8); Lymphocytes % (A) 17 %; MCH 34.7 pg (25.0-35.0); MCHC 34.6 g/dL (31.0-37.0); MCV 100.3 fL (80.0-100.0); Macrocytosis Slight; Mean Platelet Volume 7.1; Monocytes # (A) 0.5 k/uL (0-1.0); Monocytes % (A) 4 %; Neutrophils # (A) 10.3 k/uL (1.3-7.7); Neutrophils % (A) 77 %; Platelet Count 209 k/uL (150-450); RBC 4.45 m/uL (4.30-5.90); RDW 15.4 % (11.5-15.5); WBC 13.3 k/uL (3.8-10.6)
[2021-07-17 18:18] VITALS: RESP 16
[2021-07-17 18:19] LABS: ALT 26 U/L (4-49); AST 28 U/L (17-59); African American GFR (CKD) >90 (>60 ml/min/1.73 sqM); Albumin 4.4 g/dL (3.5-5.0); Alkaline Phosphatase 67 U/L (38-126); Anion Gap 8 mmol/L; Blood Urea Nitrogen 19 mg/dL (9-20); Calcium 10.1 mg/dL (8.4-10.2); Carbon Dioxide 21 mmol/L (22-30); Chloride 110 mmol/L (98-107); Glucose 105 mg/dL (74-99); Non-African American GFR(CKD) >90 (>60 ml/min/1.73 sqM); Potassium 3.9 mmol/L (3.5-5.1); Sodium 139 mmol/L (137-145); Total Bilirubin 0.7 mg/dL (0.2-1.3); Total Protein 7.3 g/dL (6.3-8.2)
[2021-07-17 18:29] LABS: INR 0.9 (<1.2); Partial Thromboplastin Time 22.7 sec (22.0-30.0)
--- NOTE | 2021-07-17 18:37 | ED ---
GI Bleed HPI - General Source: patient Mode of arrival: wheelchair Limitations: no limitations <Wiley Vasquez - Last Filed: 07/17/21 18:40> <Ruddy Veras - Last Filed: 07/17/21 19:26> - General Chief complaint: GI Bleed Stated complaint: Possible GI bleed Time Seen by Provider: 07/17/21 17:03 - History of Present Illness Initial comments: 61-year-old male with history of a GI bleed presents to emergency department with a chief complaint of black stools. Patient reports several days ago he noticed his stools are black and he also noticed some red blood mixed with the stool. States his stools have been mostly loose over the last couple days mother has been no profuse diarrhea. He denies any nausea vomiting. States that he is also having some diffuse abdominal pain that started approximately around the same time he began to develop symptoms. Denies any chest pain or shortness of breath but does report feeling lightheaded. (Wiley Vasquez) - Related Data Home Medications Medication Instructions Recorded Confirmed Atorvastatin [Lipitor] 40 mg PO DAILY 03/04/21 07/17/21 Disulfiram [Antabuse] 250 mg PO DAILY PRN 03/04/21 07/17/21 Levocetirizine Dihydrochloride 5 mg PO DAILY 03/04/21 07/17/21 Methadone [Dolophine] 10 mg PO TID 03/04/21 07/17/21 PARoxetine [Paxil] 20 mg PO DAILY 03/04/21 07/17/21 oxyCODONE-APAP 10-325MG [Percocet 1 tab PO Q4H PRN 03/04/21 07/17/21 10-325 mg] Baclofen 10 mg PO BID 07/17/21 07/17/21 Ferrous Sulfate [Iron (65 MG 325 mg PO DAILY 07/17/21 07/17/21 Elemental)] Pantoprazole [Protonix] 40 mg PO W/SUPPER 07/17/21 07/17/21 Allergies Allergy/AdvReac Type Severity Reaction Status Date / Time No Known Allergies Allergy Verified 07/17/21 17:26 Review of Systems ROS Other: All systems not noted in ROS Statement are negative. <Wiley Vasquez - Last Filed: 07/17/21 18:40> ROS Other: All systems not noted in ROS Statement are negative. <Ruddy Veras - Last Filed: 07/17/21 19:26> ROS Statement: Those systems with pertinent positive or pertinent negative responses have been documented in the HPI. Past Medical History Past Medical History: GI Bleed, Hyperlipidemia History of Any Multi-Drug Resistant Organisms: None Reported Past Surgical History: Hernia Repair, Orthopedic Surgery, Tonsillectomy Additional Past Surgical History / Comment(s): Proste surgery Past Psychological History: No Psychological Hx Reported Smoking Status: Current every day smoker Past Alcohol Use History: None Reported Past Drug Use History: None Reported <Wiley Vasquez - Last Filed: 07/17/21 18:40> General Exam Limitations: no limitations General appearance: alert, in no apparent distress Head exam: Present: atraumatic, normocephalic, normal inspection Eye exam: Present: normal appearance, PERRL, EOMI Pupils: Present: normal accommodation ENT exam: Present: normal exam, normal oropharynx, mucous membranes moist Neck exam: Present: normal inspection, full ROM. Absent: tenderness, lymphadeno alida Respiratory exam: Present: normal lung sounds bilaterally. Absent: respiratory distress, wheezes, rales, rhonchi, stridor, chest wall tenderness, accessory muscle use Cardiovascular Exam: Present: regular rate, normal rhythm, normal heart sounds. Absent: systolic murmur, diastolic murmur GI/Abdominal exam: Present: soft, tenderness (Mild, diffuse abdominal pain). Absent: distended, guarding, rebound, rigid Rectal exam: Present: normal rectal tone, black stool. Absent: hemorrhoids Extremities exam: Present: normal inspection, full ROM, normal capillary refill. Absent: tenderness Back exam: Present: normal inspection, full ROM. Absent: tenderness, CVA tenderness (R), CVA tenderness (L), muscle spasm, paraspinal tenderness, vertebr al tenderness Neurological exam: Present: alert, oriented X3 Psychiatric exam: Present: normal affect, normal mood Skin exam: Present: warm, dry, intact, normal color <Wiley Vasquez - Last Filed: 07/17/21 18:40> Course <Ruddy Veras - Last Filed: 07/17/21 19:26> Vital Signs 07/17/21 07/17/21 16:23 18:00 Temperature 98.4 F Pulse Rate 98 86 Respiratory 20 16 Rate Blood Pressure 164/84 103/82 O2 Sat by Pulse 97 96 Oximetry - Reevaluation(s) Reevaluation #1: 07/17/21 19:20 Patient was endorsed to me by ED SILVIA Vasquez (secondary to end of his chipped) with the patient's CT report still pending. Patient's CT shows no acute abnormality. Patient's BUN (19) and hemoglobin (15.4) are within normal limits. Patient's vital signs are normal and stable. Patient's stool occult blood is negative. I am uncertain of the etiology of the patient's reported dark-colored stool. No GI bleed is a possibility, other causes are possible, including that the patient reports taking iron pills. Patient was counseled about discolored stool/GI bleeding, and he was clearly explained return and follow-up instructions. He was instructed to have a low threshold for return to the emergency department should his bleeding return or worsen. Patient was instructed to follow up closely with his primary care provider, as well as his GI specialist. Patient feels comfortable with plan. (Ruddy Veras) Medical Decision Making - Lab Data Result diagrams: 07/17/21 17:47 07/17/21 17:47 <Wiley Vasquez - Last Filed: 07/17/21 18:40> - Lab Data Result diagrams: 07/17/21 17:47 07/17/21 17:47 - Radiology Data Radiology results: report reviewed (CT abdomen/pelvis with IV contrast: No acute intra-abdominal process) <Ruddy Veras - Last Filed: 07/17/21 19:26> - Medical Decision Making 61-year-old male with history of a GI bleed presents to emergency department with a chief complaint of black stools. On physical examination, diffuse abdominal tenderness. Rectal examination reveals some black stool but no signs of hemorrhoids. CBC shows no signs of anemia. CMP shows slight elevation in BUN. Occult stool was negative. Patient was given IV fluids, antiemetics and analgesia. CT of abdomen and pelvis is pending. At this time, patient care signed off to . (Wiley Vasquez) - Lab Data Lab Results 07/17/21 07/17/2121 Range/Units 17:47 17:47 17:47 WBC 13.3 H (3.8-10.6) k/uL RBC 4.45 (4.30-5.90) m/uL Hgb 15.4 (13.0-17.5) gm/dL Hct 44.6 (39.0-53.0) % MCV 100.3 H (80.0-100.0) fL MCH 34.7 (25.0-35.0) pg MCHC 34.6 (31.0-37.0) g/dL RDW 15.4 (11.5-15.5) % Plt Count 209 (150-450) k/uL MPV 7.1 Neutrophils % 77 % Lymphocytes % 17 % Monocytes % 4 % Eosinophils % 1 % Basophils % 0 % Neutrophils # 10.3 H (1.3-7.7) k/uL Lymphocytes # 2.2 (1.0-4.8) k/uL Monocytes # 0.5 (0-1.0) k/uL Eosinophils # 0.1 (0-0.7) k/uL Basophils # 0.0 (0-0.2) k/uL Macrocytosis Slight PT 10.0 (9.0-12.0) sec INR 0.9 (<1.2) APTT 22.7 (22.0-30.0) sec Sodium 139 (137-145) mmol/L Potassium 3.9 (3.5-5.1) mmol/L Chloride 110 H (98-107) mmol/L Carbon Dioxide 21 L (22-30) mmol/L Anion Gap 8 mmol/L BUN 19 (9-20) mg/dL Creatinine 0.72 (0.66-1.25) mg/dL Est GFR (CKD-EPI)AfAm >90 (>60 ml/min/1.73 sqM) Est GFR (CKD-EPI)NonAf >90 (>60 ml/min/1.73 sqM) Glucose 105 H (74-99) mg/dL Plasma Lactic Acid Semaj (0.7-2.0) mmol/L Calcium 10.1 (8.4-10.2) mg/dL Total Bilirubin 0.7 (0.2-1.3) mg/dL AST 28 (17-59) U/L ALT 26 (4-49) U/L Alkaline Phosphatase 67 (38-126) U/L Troponin I (0.000-0.034) ng/mL Total Protein 7.3 (6.3-8.2) g/dL Albumin 4.4 (3.5-5.0) g/dL Stool Occult Blood (Negative) 07/17/21 07/17/21 07/17/21 Range/Units 17:47 17:47 17:51 WBC (3.8-10.6) k/uL RBC (4.30-5.90) m/uL Hgb (13.0-17.5) gm/dL Hct (39.0-53.0) % MCV (80.0-100.0) fL MCH (25.0-35.0) pg MCHC (31.0-37.0) g/dL RDW (11.5-15.5) % Plt Count (150-450) k/uL MPV Neutrophils % % Lymphocytes % % Monocytes % % Eosinophils % % Basophils % % Neutrophils # (1.3-7.7) k/uL Lymphocytes # (1.0-4.8) k/uL Monocytes # (0-1.0) k/uL Eosinophils # (0-0.7) k/uL Basophils # (0-0.2) k/uL Macrocytosis PT (9.0-12.0) sec INR (<1.2) APTT (22.0-30.0) sec Sodium (137-145) mmol/L Potassium (3.5-5.1) mmol/L Chloride (98-107) mmol/L Carbon Dioxide (22-30) mmol/L Anion Gap mmol/L BUN (9-20) mg/dL Creatinine (0.66-1.25) mg/dL Est GFR (CKD-EPI)AfAm (>60 ml/min/1.73 sqM) Est GFR (CKD-EPI)NonAf (>60 ml/min/1.73 sqM) Glucose (74-99) mg/dL Plasma Lactic Acid Semaj 0.8 (0.7-2.0) mmol/L Calcium (8.4-10.2) mg/dL Total Bilirubin (0.2-1.3) mg/dL AST (17-59) U/L ALT (4-49) U/L Alkaline Phosphatase (38-126) U/L Troponin I <0.012 (0.000-0.034) ng/mL Total Protein (6.3-8.2) g/dL Albumin (3.5-5.0) g/dL Stool Occult Blood Negative (Negative) Disposition <Wiley Vasquez - Last Filed: 07/17/21 18:40> Is patient prescribed a controlled substance at d/c from ED?: No Time of Disposition: 19:26 <Ruddy Veras - Last Filed: 07/17/21 19:26> Clinical Impression: Discoloration of stool Disposition: HOME SELF-CARE Condition: Stable Instructions (If sedation given, give patient instructions): Gastrointestinal Bleeding (ED) Additional Instructions: Return to the emergency room immediately should you develop increased pain or bleeding, a fever, shortness of breath, feeling dizzy or faint, or new or worsening symptoms. Follow up closely with your primary care provider, as well as with your GI specialist. Referrals: Sanket Rodriguez DO [Primary Care Provider] - 1-2 days
--- NOTE | 2021-07-17 19:04 | CT ---
EXAMINATION TYPE: CT abdomen pelvis w con DATE OF EXAM: 07/17/2021 COMPARISON: CT abdomen/pelvis 05/16/2021 HISTORY: abdominal pain CT DLP: 1124.1 mGycm. Automated Exposure Control for Dose Reduction was Utilized. TECHNIQUE: Multiple contiguous axial CT images of the abdomen and pelvis were obtained from the lung bases through the pubic symphysis with IV Contrast, patient injected with 100 mL of Isovue 300. 2-D s agittal and coronal reformatted images were obtained. FINDINGS: Lung bases are clear. Liver, spleen, pancreas, and bilateral adrenal glands have an unremarkable enhanced appearance. Gallbladder is present. No definite intrahepatic or extrahepatic biliary ductal dilatation. Kidneys are symmetric in size without hydronephrosis. No renal or ureteral calculi. Urinary bladder a ppears unremarkable. Prostate is not significantly enlarged. No free fluid. Visualized bowel is of normal caliber without evidence of obstruction. No significant mesenteric infl ammation. Appendix appears unremarkable. No free air. Moderate atherosclerotic vascular calcifications of the abdominal aorta and bilateral common iliac ar teries without aneurysm. No intra-abdominal or retroperitoneal lymphadenopathy. Subcutaneous soft tis sues appear unremarkable. Posterior lumbar fusion of L3-S1 with total laminectomy changes. Advanced d egenerative changes of the right hip with chronic avascular necrosis. Moderate degenerative changes o f the left hip. IMPRESSION: No acute intraabdominal process.
[2021-07-17 19:46] VITALS: BP 107/85; PULSE 97
== END 2021-07-17 19:45 | disposition home or self-care (01) ==
LOC: EC 15:34
DX: K92.1 Melena (principal); E78.5 Hyperlipidemia, unspecified; F17.200 Nicotine dependence, unspecified, uncomplicated; Z90.89 Acquired absence of other organs
CPT/HCPCS: 99284; 96374; 96375; 96376; 96361; 36415; 80053; 83605; 84484; 85025; 85610; 85730; 82272; 74177; J2270; C9113; Q9967